=== PATIENT | female | born 1985 | race Caucasian/White ===

== ENCOUNTER 2024-07-14 07:30 | Outpatient (OUT) | payer OTHER, SELFPAY ==
[2024-07-15 04:07] LABS: Progesterone 12.9 ng/mL (.)
[2024-07-17 14:08] LABS: Anti-Mullerian Hormone (AMH) 0.475 ng/mL (.)
== END 2024-07-14 07:31 | disposition home or self-care (01) ==
LOC: LAB 07:34
PROVIDERS: Family Provider Family Medicine; PCP Family Medicine; Visit Provider Obstetrics & Gynecology
DX: N97.0 Female infertility associated with anovulation (principal)
CPT/HCPCS: 36415; 82397; 84144

== ENCOUNTER 2024-08-11 07:55 | Outpatient (OUT) | payer OTHER, SELFPAY ==
[2024-08-12 08:08] LABS: Progesterone 8.3 ng/mL (.)
== END 2024-08-11 07:56 | disposition home or self-care (01) ==
PROVIDERS: Family Provider Family Medicine; PCP Family Medicine; Visit Provider Obstetrics & Gynecology
DX: N97.0 Female infertility associated with anovulation (principal)
CPT/HCPCS: 36415; 84144

== ENCOUNTER 2024-09-02 12:15 | Outpatient (REF) | payer OTHER, SELFPAY | END 2024-09-02 12:16 | disposition home or self-care (01) | LOC: LAB 12:15 | PROVIDERS: Visit Provider Obstetrics & Gynecology | DX: R87.619 Unspecified abnormal cytological findings in specimens from cervix uteri (principal) | CPT/HCPCS: 88305 ==

== ENCOUNTER 2024-09-06 10:16 | Outpatient (OUT) | payer OTHER, SELFPAY ==
--- OUTSIDE RECORDS SUMMARY | 2024-09-06 10:19 | XMS_ITS | CCD ---
Author Organization [facility] Care Team Providers Care Unit Aide Name Role Phone SEYMOUR, DEANNA S Admitting Unavailable SEYMOUR, DEANNA S Attending Unavailable SEYMOUR, DEANNA S Consulting Unavailable ANA RUIZ Consulting Unavailable SEYMOUR, DEANNA S Admitting Unavailable SEYMOUR, DEANNA S Attending Unavailable ANA RUIZ Consulting Unavailable KRISTEN GREWAL Referring Unavailabl e ANA RUIZ Primary Care Unavailable Ana Ruiz Primary Care Provider [phone] Ana Ruiz MD Primary Care Provider Ana Ruiz MD Primary Care Provider [phone] Ana Ruiz MD Primary Care Provider ANA RUIZ Primary Care Unavailable MARY KENDALL Referring Unavailable Ana Ruiz MD Primary Care Provider ANA RUIZ Primary Care Unavailable ALFRED MERCADO Referring Unavailable ALFRED MERCADO Attending Unavailable Ana Ruiz MD Primary Care Provider [phone] SABRINA, OANH Attending Unavailable SABRINA, OANH Referring Unavailable VERHOFF, ANA Primary Care Unavailable SABRINA, OANH Attending Unavailable SABRINA, OANH Referring Unavailable VERHOFF, ANA Primary Care Unavailable SABRINA, OANH Attending Unavailable SABRINA, OANH Referring Unavailable VERHOFF, ANA Primary Care Unavailable SELF, SELF Referring Unavailable VERHOFF, ANA Primary Care Unavailable ALFRED MERCADO Attending Unavailable ALFRED MERCADO Referring Unavailable VERHOFF, ANA Primary Care Unavailable ALFRED MERCADO Attending Unavailable SABRINA, OANH Attending Unavailable SELF, SELF Referring Unavailable VERHOFF, ANA Primary Care Unavailable Ana Ruiz MD Primary Care Provider Ana Ruiz MD Primary Care Provider MARY KENDALL Referring Unavailable ANA RUIZ Primary Care Unavailable SAM ASHLEY Attending Unavailable ARLENE SALAZAR Attending Unavailable SAM ASHLEY Attending Unavailable Allergies Allergy Classification Reported Allergen(s) Allergy Type Date of Onset Reaction(s) Facility (7 sources) cashew nut allergenic extract Drug Allergy 1 [facility] (9 sources) Cashew nut Propensity to adverse reactions 1 [facility] Healthcare Medications Current Medications Medication Drug Class(es) Dates Sig (Normalized) Sig (Original) acetaminophen 325 mg oral tablet (4 sources) Start: 08-09-2021 take 2 tablets by mouth every four hours as needed acetaminophen 325 MG tablet Take 2 tablets by mouth every 4 hours as needed for Mild Pain. 50 tablet 1 08/09/2021 Active acetaminophen 325 mg / HYDROcodone bitartrate 5 mg oral tablet (2 sources) Opioid Agonist Start: 08-09-2021 take 1 tablet by mouth once daily as needed hydroCODone-acetam inophen 5-325 MG tablet Indications: Acute postoperative pain of left hip Take 1-2 tablets by mouth every 6 hours as needed for up to 7 days. Do not take over 4000mg acetaminophen daily. 20 tablet 0 08/09/2021 Active amoxicillin 500 mg oral capsule (6 sources) Penicillin-class Antibacterial Start: 09-01-2021 End: 08-09-2023 Amoxicillin 500 MG capsule Take 4 capsules 1 hour before procedure 8 capsule 1 08/09/2022 08/09/2023 Active apixaban 2.5 mg oral tablet (3 sources) Factor Xa Inhibitor Start: 08-09-2021 End: 09-13-2021 take 1 tablet by mouth every twelve hours apixaban 2.5 MG tablet Take 1 tablet by mouth every 12 hours. This medication is for blood clot prevention 70 tablet 0 08/09/2021 Active aspirin 325 mg delayed release oral tablet (20 sources) Platelet Aggregation Inhibitor, Nonsteroidal Anti-inflammatory Drug Start: 08-21-2016 take 1 tablet by mouth once daily aspirin 325 MG EC tablet Indications: Hx pulmonary embolism Take 1 tablet by mouth daily 30 tablet 3 08/21/2016 Active aspirin 81 MG EC tablet 1 (one) time each day at the same time. Active take 1 tablet by mouth once petr y aspirin 81 MG tablet Take 1 tablet by mouth daily Active calcium carbonate 500 mg sarina wable tablet (14 sources) calcium carbonat e (TUMS) 500 MG chewable tablet Take 1 tablet by mouth as needed Active take 1 tablet by mouth once petr y calcium carbonate (OSCAL) 500 MG TABS tablet Take 500 mg by mouth daily Active calcium carbonat e 1250 (500 Ca) MG Chew Tab Chew 1 tablet 2 times daily. 0 Active celecoxib 200 mg oral capsule (3 sources) Nonsteroidal Anti-inflammatory Drug Start: 08-09-2021 End: 09-20-2021 take 1 capsule by mouth twice daily celecoxib 200 MG capsule Take 1 capsule by mouth 2 times daily. 84 capsule 0 08/09/2021 Active cholecalciferol 0.05 mg oral capsule (7 sources) Vitamin D Cholecalciferol (VITAMIN D) 50 MCG (2000 UT) CAPS capsule Take by mouth daily Active cholecalciferol 50 MCG (2000 UT) capsule Take by mouth 2 times daily. 0 Active IXX-YQA-Wepmphda M57-Miwteuk E (COQ-10 & FISH OIL PO) (1 source) OMN-COM-Akxfzfvl B26-Nwqlhvi E (COQ-10 & FISH OIL PO) CoQ-10 & Fish Oil Active docusate sodium 100 mg oral capsule (11 sources) take 1 capsule by mouth twice daily docusate sodium (COLACE) 100 MG capsule Take 100 mg by mouth 2 times daily Active ergocalciferol 1.25 mg oral capsule (4 sources) Provitamin D2 Compound take 1 capsule by mouth every week ergocalciferol 1.25 MG (14188 UT) capsule Take 1 capsule by mouth once a week. 0 Active letrozole 2.5 mg oral tablet (1 source) Aromatase Inhibitor Start: 025 End: 025 take 3 tablets by mouth once daily letrozole (FEMARA) 2.5 MG tablet Take 3 tablets by mouth daily 08/18/2024 08/23/2024 Active meloxicam 7.5 mg oral tablet (8 sources) Nonsteroidal Anti-inflammatory Drug Start: 021 meloxicam (MOBIC) 7.5 MG tablet Start: 12-03-2018 meloxicam (MOB IC) 15 MG tablet 12/03/2018 Active 24 hr metFORMIN hydrochloride 500 mg extended release oral tablet (5 sources) Biguanide Start: 06-19-2024 End: 07-19-2024 take 1 tablet by mouth every twenty-four hours at mealtime metFORMIN XR (Glucophage-XR) 500 MG 24 hr tablet Indications: Anovulation Take 1 tablet (500 mg) by mouth in the evening. Take with meals Do not crush, chew, or split. 30 tablet 11 06/19/2024 Active Misc Natural Products (GLUCOSAMINE CHOND MSM FORMULA PO) (1 source) Misc Natural Products (GLUCOSAMINE CHOND MSM FORMULA PO) Take by mouth Active Multiple Vitamins-Minerals (MULTIVITAMIN ADULTS PO) (1 source) Multiple Vitamins-Minerals (MULTIVITAMIN ADULTS PO) Take by mouth Active naproxen sodium 275 mg oral tablet (3 sources) Nonsteroidal Anti-inflammatory Drug Start: 02-10-2022 take 1 tablet by mouth three times daily at mealtime as needed naproxen sodium (ANAPROX) 275 MG tablet Take 1 tablet by mouth 3 times daily (with meals) As needed for heavy menstrual bleeding 60 tablet 3 02/10/2022 Active omeprazole 20 mg delayed release oral capsule (4 sources) Proton Pump Inhibitor Start: 08-09-2021 take 1 capsule by mouth once daily omeprazole [address] capsule Take 1 capsule by mouth daily. 30 capsule 0 08/09/2021 Active ondansetron 4 mg oral tablet (4 sources) Serotonin-3 Receptor Antagonist Start: 08-09-2021 take 1 tablet by mouth every eight hours as needed ondansetron 4 MG tablet Take 1 tablet by mouth every 8 hours as needed for Nausea. 6 tablet 0 08/09/2021 Active Vit-Fe Fumarate-FA ( PLUS/IRON) 27-1 MG TABS tablet (1 source) Start: 12-04-2018 take 1 tablet by mouth once daily Vit-Fe Fumarate-FA ( PLUS/IRON) 27-1 MG TABS tablet Indications: Well woman exam with routine gynecological exam Take 1 tablet by mouth daily 90 tablet 3 12/04/2018 Active Vit-Fe Fumarate-FA ( VITAMIN) 27-1 MG TABS tablet (3 sources) Start: 09-12-2021 take 1 tablet by mouth once daily Vit-Fe Fumarate-FA ( VITAMIN) 27-1 MG TABS tablet Indications: Well woman exam with routine gynecological exam TAKE ONE TABLET BY MOUTH DAILY 90 tablet 3 09/12/2021 Active Vit-Fe Fumarate-FA (PrePLUS) 27-1 MG tablet (4 sources) Start: 03-22-2021 Vit-Fe Fumarate-FA (PrePLUS) 27-1 MG tablet Take by mouth daily. 0 03/22/2021 Active Vit-Fe Fumarate-FA (PREPLUS) 27-1 MG TABS (3 sources) Start: 11-18-2020 take 1 tablet by mouth once daily Vit-Fe Fumarate-FA (PREPLUS) 27-1 MG TABS Indications: Well woman exam with routine gynecological exam TAKE ONE TABLET BY MOUTH DAILY 90 tablet 2 11/18/2020 Active salmon calcitonin 200 unt/actuat nasal spray (7 sources) Calcitonin Start: 11-04-2018 calcitonin (MIACALCIN) 200 UNIT/ACT nasal spray 11/04/2018 Active traMADol hydrochloride 50 mg oral tablet (2 sources) Opioid Agonist Start: 08-18-2021 take 1-2 tablets by mouth every six hours as needed for pain traMADol 50 MG tablet Indications: Acute postoperative pain of left hip 1-2 tabs po q 6 hr PRN pain 20 tablet 0 08/18/2021 Active VITAMIN K PO (3 sources) VITAMIN K PO Bk e by mouth 2 times daily Active VITAMIN K PO Bk e by mouth 2 times daily 0 Active Completed/Discontinued Medications Medication Drug Class(es) Dates Sig (Normalized) Sig (Original) chondroitin sulfates 400 mg / glucosamine sulfate 500 mg oral tablet (6 sources) End: 06-19-2024 take 1 tablet by mouth in the morning, then take 1 tablet by mouth in the evening, then take 1 tablet by mouth at bedtime glucosamine-chondro itin 500-400 MG tablet Take 1 tablet by mouth in the morning and 1 tablet in the evening and 1 tablet before bedtime. 06/19/2024 Discontinued (Therapy completed) efinaconazole 100 mg/ml topical solution (17 sources) Azole Antifungal Start: 10-28-2016 End: 06-19-2024 Efinaconazole (Jublia) 10 % solution Indications: Onychomycosis 1 APPLICATION TO AFFECTED AREA ONCE A DAY EXTERNALLY 30 DAYS for 30 8 mL 3 04/10/2023 06/19/2024 Discontinued (Therapy completed) iohexol (OMNIPAQUE 240) injection 10 mL (1 source) Start: 05-23-2021 End: 05-23-2021 iohexol (OMNIPAQUE 240) injection 10 mL vitamin k 0.1 mg oral tablet (6 sources) End: 06-19-2024 phytonadione (Vitamin K) 100 MCG tablet Take by mouth. 06/19/2024 Discontinued (Therapy completed) zinc gluconate 50 mg oral tablet (6 sources) End: 06-19-2024 take 1 tablet by mouth in the morning zinc gluconate 50 MG tablet Take 50 mg by mouth in the morning. 06/19/2024 Discontinued (Therapy completed) Problems Active Problems Problem Classification Problem Date Documented Date Episodic/Chronic Anxiety disorders (7 sources) Anxiety; Translations: [Anxiety disorder, unspecified] Onset: 01-05-2015 07-10-2016 Chronic Female infertility (5 sources) Anovulation; Translations: [Female infertility associated with anovulation] Chronic Immunizations and screening for infectious disease (1 source) Patient encounter status; Translations: [Encounter for screening for human papillomavirus (HPV)] Episodic Osteoarthritis (7 sources) Unilateral primary osteoarthritis, left hip; Translations: [Osteoarthritis of left hip joint] Onset: 08-29-2018 05-17-2020 Chronic Other and unspecified benign neoplasm (2 sources) Melanocytic nevus of trunk; Translations: [Melanocytic nevi of trunk] 09-06-2023 Episodic Other and unspecified benign neoplasm (2 sources) Dermatofibroma of right upper limb; Translations: [Other benign neoplasm of skin of right upper limb, including shoulder] 09-06-2023 Episodic Other connective tissue disease (2 sources) History of total replacement of left hip joint; Translations: [Presence of left artificial hip joint] Chronic Other connective tissue disease (2 sources) Presence of left artificial hip joint; Translations: [Presence of left artificial hip joint] Onset: 08-09-2022 Chronic Other female genital disorders (1 source) Abnormal uterine bleeding; Translations: [Other specified abnormal uterine and vaginal bleeding] Chronic Other female genital disorders (1 source) Other specified abnormal uterine and vaginal bleeding; Translations: [Other specified abnormal uterine and vaginal bleeding] Onset: 02-10-2022 Chronic Other non-traumatic joint disorders (4 sources) Pain in left hip; Translations: [PAIN IN LEFT HIP] Onset: 08-27-2018 Episodic Other and delivery including normal (14 sources) Delivery normal; Translations: [ state] Resolved: 01-19-2021 07-10-2016 Episodic Other screening for suspected conditions (not mental disorders or infectious disease) (1 source) Atypical glandular cells on cervical Papanicolaou smear; Translations: [Unspecified abnormal cytological findings in specimens from cervix uteri] 09-02-2024 Episodic Other skin disorders (2 sources) Seborrheic keratosis; Translations: [Other seborrheic keratosis] 09-06-2023 Episodic Residual codes; unclassified (10 sources) Device in situ; Translations: [Presence of functional implant, unspecified] Onset: 04-10-2023 04-10-2023 Chronic Residual codes; unclassified (1 source) Other specified postprocedural states; Translations: [OTH SPECIFIED POSTPROCEDURAL STATES] Onset: 08-29-2018 Past or Other Problems Problem Classification Problem Date Documented Da te Episodic/Chronic Asthma (7 sources) Mild intermittent asthma; Translations: [Mild intermittent asthma, uncomplicated] Onset: 07-10-2016 Resolved: 08-15-2016 08-15-2016 Chronic Complication of device; implant or graft (2 sources) Pain due to internal orthopedic prosthetic devices, implants and grafts, sequela; Translations: [Pain due to internal orthopedic prosthetic devices, implants and grafts, sequela] Onset: 01-12-2022 Episodic Prolonged (7 sources) Post-term - not delivered; Translations: [Post-term ] Onset: 07-10-2016 Resolved: 08-15-2016 08-15-2016 Episodic Pulmonary heart disease (7 sources) H/O: pulmonary embolus; Translations: [Personal history of pulmonary embolism] Onset: 07-10-2016 Resolved: 08-15-2016 08-15-2016 Episodic Results Test Name Value Interpretation Reference Range Facility Colposcopyon 09-02-2024 Cammie Mane LPN 09/02/2024 2:32 PM Colposcopy Date/Time: 09/02/2024 9:34 AM Performed by: Sam Ashley DO Authorized by: Sam Ashley DO Procedure location: cervix and vagina Consent: Patient questions answered: yes Risks and benefits of the procedure and its alternatives discussed: yes Consent obtained: Written Consent given by: Patient Indication: Cervical indication(s): AGC Pre-procedure: Prep solution(s): acetic acid Procedure: Colposcopy with: cervical biopsy, endometrial biopsy and endocervical curettage Cervix visibility: fully visualized Post-procedure: Patient tolerance of procedure: Patient tolerated the procedure well with no immediate complications Instructions and paperwork completed: yes Comments: Colposcopy: Patient is doing well and has no complaints. Pap results have been reviewed with the patient in great detail and patient voiced understanding. Patient presents today for a Colposcopy with ECC, and biopsies at 12 oclock and 4 oclock. Patient was placed in dorsal lithotomy position with feet in stirrups, a sterile speculum was placed into the vagina and the cervix was visualized. Cervix was cleansed with vinegar. Postprocedural instructions given. All if patients questions answered and she expressed understanding. Advised to call in interim with questions or concerns. Follow Up: Patient is to return in 6 months for Repeat Pap. [facility] HCG ( test) Ql (U)o n 09-02-2024 Preg Test, Ur Negative Negative [facility] Cytology Reporton 08-20-2024 Cytology report Cyto stain.thin prep Doc (Cvx/Vag) (NOTE) Path Number: [id number] DIAGNOSIS Imaged ThinPrep Pap - Cervical (1 monolayer slide): Specimen Adequacy: Satisfactory for evaluation. - Endocervical/transform ation zone component present. Descriptive Diagnosis: Atypical glandular cells present (not otherwise specified). Comments: Specimen was screened at [facility], [address] [place] [id number] [employer] Screener: PT Electronically Signed Out Sam Lafleur M.D. kimberly/08/26/2024 Procedure/Addendum HPV Procedure Report High Risk HPV testing was ordered Date Ordered: 08/26/2024 Status: Ordered Source of Specimen: A: Imaged ThinPrep Pap - Cervical (1 monolayer slide) HPV Reflex?............... .......HPV if Abnormal Clinical History Colposcopy: 10/15 Z01.419 Routine manager enterprise content management exam without abnormal findings LMP: 08/17/24 Processing Lab: [address] [id number] Interpretation performed at [address] [id number] This Pap Test has been evaluated with the assistance of the [employer] Pap Test Imaging System. The Pap smear is a screening test primarily for squamous epithelial lesions, which is subject to both false negative and false positive results. Your patient should be reminded to consult you immediately if she experiences any suspicious signs or symptoms, regardless of her Pap smear result. GYNECOLOGIC CYTOLOGY REPORT Patient Name: LORENA DOUGLASS [facility] Rec: [id number] [facility] [employer] [facility] ANATOMIC PATHOLOGY [address] [place] [address]. [place], [place] [address] [facility] ALL PROGESTERONEon 5 PROGESTERONE 8.3 ng/mL . [facility] Comment on above: Follicular phase 0.1 - 0.9 Luteal phase 1.8 - 23.9 Ovulation phase 0.1 - 12.0 First trimester 11.0 - 44.3 Second trimester 25.4 - 83.3 Third trimester 58.7 - 214.0 Postmenopausal 0.0 - 0.1 Performed at: [facility] [id number] Business Lawyer: Kelvin Fajardo PhD, Phone: [phone] [employer] [facility] [employer] ALL PROGESTERONEon 4 PROGESTERONE 12.9 ng/mL . [facility] Comment on above: Follicular phase 0.1 - 0.9 Luteal phase 1.8 - 23.9 Ovulation phase 0.1 - 12.0 First trimester 11.0 - 44.3 Second trimester 25.4 - 83.3 Third trimester 58.7 - 214.0 Postmenopausal 0.0 - 0.1 Performed at: [facility] [id number] Business Lawyer: Kelvin Fajardo PhD, Phone: [phone] [facility] [employer] TSH with Reflexon 02-10-2022 TSH Qn 0.75 m[IU]/L [facility] NON OB TRANSVAGINALon NON OB TRANSVAGINAL Cris nolasco 02/10/2022 11:20 AM UTERUS:anteverted, inhomogeneous echo pattern; fibroid visualized mid / lateral, ? pedunculated Fibroid elton- 0.7cm x 1.3cm x 0.6cm ? ENDO:1.5cm in thickness ? RT. OVARY:seen, cyst elton- 2.7cm x 1.9cm x 1.8cm ? LT. OVARY:seen, wnl Interpreted by: Naman Milan MD Signed by: Naman Milan MD 02/10/22 Final result Normal [facility] XR HYSTEROSALPINGOGRAPHY S&I Ordered By: Mary Kendall on 05-23-2021 Normal exam [employer] Phone: EXAMINATION: FLUOROSCOPIC HYSTEROSALPINGOGRAM 05/23/2021 3:37 pm TECHNIQUE: Informed consent was obtained and universal protocol was observed. Fluoroscopic hysterosalpingogram was performed after cannulization of the cervix and administration of contrast into the uterine cavity. FLUOROSCOPY DOSE AND TYPE OR TIME AND EXPOSURES: 0.3 minutes fluoroscopy utilized. 2 cine loops obtained COMPARISON: none HISTORY: ORDERING SYSTEM PROVIDED HISTORY: Infertility, female TECHNOLOGIST PROVIDED HISTORY: infertility Is the patient ?->No FINDINGS: There is normal opacification of the fallopian tubes with free spill of contrast into the peritoneal cavity. There is normal filling of the endometrial cavity without evidence of endometrial filling defect. [employer] Phone: Chi, pn Incoming Radiant Results From [facility] - 05/23/2021 4:03 PM EDT EXAMINATION: FLUOROSCOPIC HYSTEROSALPINGOGRAM 05/23/2021 3:37 pm TECHNIQUE: Informed consent was obtained and universal protocol was observed. Fluoroscopic hysterosalpingogram was performed after cannulization of the cervix and administration of contrast into the uterine cavity. FLUOROSCOPY DOSE AND TYPE OR TIME AND EXPOSURES: 0.3 minutes fluoroscopy utilized. 2 cine loops obtained COMPARISON: none HISTORY: ORDERING SYSTEM PROVIDED HISTORY: Infertility, female TECHNOLOGIST PROVIDED HISTORY: infertility Is the patient ?->No FINDINGS: There is normal opacification of the fallopian tubes with free spill of contrast into the peritoneal cavity. There is normal filling of the endometrial cavity without evidence of endometrial filling defect. IMPRESSION: Normal exam [employer] Phone: [employer] Phone: Trista 03-22-2021 [facility] Telephone (ORQ) ALEXISLORENA ([id number]) 1985 F Date Time Provider Department 03/22/21 JASE WAGGONER ORQ During your visit today, we recorded the following information about you: Cammie Guzman 03/22/2021 9:17 AM Signed Patient calling regarding appt 03/25. Patient is coming in for 2nd opinion for her hip and would like to know if she has to have surgery does Dr Waggoner do anterior incision? Patient requesting call at [phone] Please advise. Jase Waggoner II, MD 03/28/2021 11:49 AM Signed called and left message to call me at [phone] Marina Richards MA Allergies As of Date: 03/22/2021 (Not on File) Date Reviewed: Never Reviewed Reason for Visit: Patient Question [[id number]] Problem List As Of Date: 03/22/2021 (None) Encounter Status:Closed by JASE WAGGONER II on 03/28/21 Normal [facility] ProgesteroneOrdered By: Zohra Kendall on 02-14-2021 Progesterone 15.63 ng/mL [employer] Work Phone: Comment on above: FEMALE (healthy): Follicular phase 0.06-0.89 Ovulation phase 0.12-12.00 Luteal phase 1.83-23.90 Postmenopausal <0.13 [employer] Phone: Hepatic Function Panelon Albumin [Mass/Vol] 4.9 g/dL 3.5 - 5.2 g/dL [facility] [place] Albumin/Globulin [Mass ratio] NOT REPORTED [place], [place] ALP [Catalytic activity/Vol] 41 U/L 35 - 104 U/L [place] ALT [Catalytic activity/Vol] 15 U/L 5 - 33 U/L [place] AST [Catalytic activity/Vol] 15 U/L <32 [place] Bilirubin Ql (U) 0.34 mg/dL 0.3 - 1.2 mg/dL [place] Bilirubin, Indirect CANNOT BE CALCULATED 0 - 1 mg/dL [place] Bilirubin.direct [Mass/Vol] mg/dL <0.31 mg/dL [place] Globulin (S) [Mass/Vol] NOT REPORTED 1.5 - 3.8 g/dL [place] Interpretation and review of laboratory results Abnormal [place] Protein [Mass/Vol] 8.4 g/dL High 6.4 - 8.3 g/dL [place] Liver Profileon 06-12-2019 Albumin [Mass/Vol] 4.9 g/dL Normal 3.5-5.2 [facility] Comment on above: Performed By: #### W BC, LIVP, SED #### [facility] [address] [place] [address] Business Lawyer: Sridhar Ye MD Alkaline Phos 41 U/L Normal 35-104 [facility] Comment on above: Performed By: #### W BC LIVP, SED #### [facility] [address] [place] [address] Business Lawyer: Sridhar Ye MD ALT [Catalytic activity/Vol] 15 U/L Normal 5-33 [facility] Comment on above: Performed By: #### W BC, LIVP, SED #### [facility] [address] [place] [address] Business Lawyer: Sridhar Ye MD AST [Catalytic activity/Vol] 15 U/L Normal <32 [facility] Comment on above: Performed By: #### W BC, LIVP, SED #### [facility] [address] [place] [address] Business Lawyer: Sridhar Ye MD Bilirubin Ql (U) 0.34 mg/dL Normal 0.30-1.20 [facility] Comment on above: Performed By: #### W BC, LIVP, SED #### [facility] [address] [place] [address] Business Lawyer: Sridhar Ye MD Bilirubin, Indirect CANNOT BE CALCULATED Normal 0.00-1 .00 [facility] Comment on above: Performed By: #### W BC, LIVP, SED #### [facility] [address] [place] [address] Business Lawyer: Sridhar Ye MD Bilirubin.direct [Mass/Vol] mg/dL Normal <0.31 [facility] Comment on above: Performed By: #### W BC, LIVP, SED #### [facility] [address] [place] [address] Business Lawyer: Sridhar Ye MD Protein [Mass/Vol] 8.4 g/dL High 6.4-8.3 [facility] Comment on above: Performed By: #### W BC, LIVP, SED #### [facility] [address] [place] [address] Business Lawyer: Sridhar Ye MD Albumin/Globulin [Mass ratio] NOT REPORTED Normal 1.0-2.5 [facility] Comment on above: Performed By: #### W BC, LIVP, SED #### [facility] [address] [place] [address] Business Lawyer: Sridhar Ye MD Globulin (S) [Mass/Vol] NOT REPORTED Normal 1.5-3.8 [facility] Comment on above: Performed By: #### W BC, LIVP, SED #### [facility] [address] [place], [place] [id number] Business Lawyer: Sridhar Ye MD Sedimentation Rateon 019 Sedimentation Rate 15 mm Normal 0-30 [facility] Comment on above: Performed By: #### W BC, LIVP, SED #### [facility] [address] [place] [address] Business Lawyer: Sridhar Ye MD Sed Rate 15 mm 0 - 30 mm [place], [place] WBCon 06-12-2019 WBC (Bld) [#/Vol] 11.0 10*3/uL [place] WBC Counton 06-12-2019 WBC (Bld) [#/Vol] 11.0 10*3/uL Normal 3.5-11.0 [facility] Comment on above: Performed By: #### W KHAI, LIVP, SED #### [facility] [address] [place] [address] Business Lawyer: Sridhar Ye MD CONSULTATIONon 08-27-2018 CONSULTATION CONSULTATION PAIN MANAGEMENT Consultation Date: 08-27-18 HISTORY OF PRESENT ILLNESS: Today in the office I saw Lorena Douglass. This is a 32 year-old female who is referred to us by Dr. Ruiz, in [place]. The patient has left hip pain. The patient approximately five years ago had a slipped capital femoral epiphyses for which she had stabilization with a screw. At present, there is moderate to severe arthritic changes for her age on her left hip, as would be anticipated secondary to the architectural variance. The patient describes currently the pain as a 0/10, a pinching sensation. ADL: Activities such as twisting, housework, standing and walking too long aggravates the pain as does running. The patient is a runner, she enjoys running. She runs approximately a mile. MEDICATIONS: She currently takes ibuprofen, recently was started on meloxicam, however, hasn't started it yet. The surgeon was Dr. Cazares in the [facility]. The patient is a mother of one, she noted more of the discomfort and pain after her child's . PAST MEDICAL HISTORY / PAST SURGICAL HISTORY and REVIEW OF SYSTEMS are noted on the chart along with the MEDICATIONS, ALLERGIES, and radiological images. X-rays of the hips were reviewed with the patient. PHYSICAL EXAM: GENERAL:This is a pleasant, cooperative female who does not appear to be in any acute distress. VITALS:Stable at 122/77 with a heart rate of 68. HEAD:Atraumatic, normocephalic. NECK:Supple without any overt lesion. HEART:Regular rate, normal rhythm. LUNGS:Normal expansion, no audible wheezing. ABDOMEN:Soft, nondistended. The patient at 5'8 is 77 kg. BACK:Slight tenderness is noted along the posterior elements on the right hand side compared to the left hand side. Upon extension, compression at the level of L5-S1. EXTREMITIES:No pedal edema is noted. MUSCULOSKELETAL:Intact in the lower extremities. NEUROLOGICALLY:The patient is grossly intact. PSYCHIATRICALLY:Affect is appropriate. IMPRESSION: 1. 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 2. Left hip pain. PLAN: 1. Education was done with regards to the various possibilities. We have instructed the patient to increase her calcium with vitamin D intake to approximately 1,500 mg daily. 2. In addition to this, we will prescribe Miacalcin nasal usage for six months. 3. In addition, the possibility of adding diclofenac can be there. 4. We would like to order x-rays of the patient's hip and lumbar spine, however, we will hold at this time for economic reasons. 5. The possibility of using an intraarticular lubricants and/or injections have been explained to the patient along with remote possibility of stem cells should she wish to explore. cc:Dr. Ruiz [facility] Signed and Approved by: DR DEANNA SEYMOUR 09/05/2018 11:48:00 Normal [facility] Vital Signs Date Time Vital Sign Value Performing Clinician Facility 09-02-2024 08:46-0500 Body mass index (BMI) [Ratio] 26.47 kg/m2 [employer] Work Phone: [facility] 09-02-2024 08:46-0500 Body weight 76.66 kg [employer] Phone: [facility] 09-02-2024 08:46-0500 Diastolic blood pressure 76 mm[Hg] [employer] Phone: [facility] 09-02-2024 08:46-0500 Systolic blood pressure 118 mm[Hg] Sam Dion DO Work Phone: [facility] 06-19-2024 09:32-0500 Body mass index (BMI) [Ratio] 26.63 kg/m2 Sam Idon DO Work Phone: [facility] 06-19-2024 09:32-0500 Body weight 77.11 kg Sam Dion DO Work Phone: [facility] 06-19-2024 09:32-0500 Diastolic blood pressure 72 mm[Hg] Sam Dion DO Work Phone: [facility] 06-19-2024 09:32-0500 Systolic blood pressure 110 mm[Hg] Sam Dion DO Work Phone: [facility] 08-09-2022 15:27-0500 Body height 170.2 cm Oanh Swartzey STAFF COUNSELOR-MICRO COMPUTER SPECIALIST Work Phone: [facility] 08-09-2022 15:27-0500 Body mass index (BMI) [Ratio] 27.72 kg/m2 Oanh Sabrina STAFF COUNSELOR-MICRO COMPUTER SPECIALIST Work Phone: [facility] 08-09-2022 15:27-0500 Body temperature 97.81 [degF] Oanh Sabrina STAFF COUNSELOR-MICRO COMPUTER SPECIALIST Work Phone: [facility] 08-09-2022 15:27-0500 Body weight 80.29 kg Oanh Sabrina STAFF COUNSELOR-MICRO COMPUTER SPECIALIST Work Phone: [facility] 09-01-2021 15:04-0500 Body height 170.2 cm Oanh Sabrina STAFF COUNSELOR-MICRO COMPUTER SPECIALIST Work Phone: [facility] 09-01-2021 15:04-0500 Body mass index (BMI) [Ratio] 26.78 kg/m2 Oanh Sabrina STAFF COUNSELOR-MICRO COMPUTER SPECIALIST Work Phone: [facility] 09-01-2021 15:04-0500 Body temperature 98.4 [degF] Oanh Bennett STAFF COUNSELOR-MICRO COMPUTER SPECIALIST Work Phone: [facility] 09-01-2021 15:04-0500 Body weight 77.56 kg Oanh Bennett STAFF COUNSELOR-MICRO COMPUTER SPECIALIST Work Phone: [facility] Encounters Encounter Date Encounter Type Care Provider Facility Start: 09-02-2024 End: 09-02-2024 Patient encounter procedure Sam Dion DO Work Phone: [facility] Comment on above: Atypical glandular c ells of undetermined significance (KAYLEN) on cervical Pap smear Start: 09-02-2024 End: 09-02-2024 ambulatory SAM ASHLEY Not Available Start: 08-20-2024 End: 08-20-2024 ambulatory [facility] Start: 08-20-2024 Encounter for gynecological examination (general) (routine) without abnormal findings [facility] Start: 08-20-2024 End: 08-20-2024 Patient encounter procedure Ana Ruiz MD Work Phone: [facility] Start: 08-20-2024 End: 08-20-2024 Subsequent hospital visit by physician Ana Ruiz MD Work Phone: [facility] Laboratory Comment on above: Well woman exam with routine gynecological exam Start: 08-11-2024 End: 08-12-2024 Clinisync Result Encounter Sam Dion DO Work Phone: [facility] Unsolicited Start: 08-11-2024 End: 08-12-2024 Clinisync Result Encounter Sam Dion DO Work Phone: [facility] Unsolicited Start: 07-14-2024 End: 07-15-2024 Clinisync Result Encounter Sam Dion DO Work Phone: [facility] Unsolicited Start: 07-14-2024 End: 07-15-2024 Clinisync Result Encounter Sam Dion DO Work Phone: [facility] Unsolicited Start: 06-19-2024 End: 06-19-2024 Bamboo flowsheet Sam Dion DO Work Phone: [facility] Start: 06-19-2024 End: 06-19-2024 Bamboo flowsheet Sam Dion DO Work Phone: [facility] Start: 06-19-2024 End: 06-19-2024 ambulatory SAM DION Not Available Start: 06-19-2024 End: 06-19-2024 Office outpatient new 20 minutes Sam Dion DO Work Phone: [facility] Comment on above: Anovulation Start: 09-06-2023 End: 09-06-2023 ambulatory ARLENE A FELTER Not Available Start: 09-06-2023 End: 09-06-2023 Office outpatient new 30 minutes Arlene A Felter STAFF COUNSELOR-MICRO COMPUTER SPECIALIST Work Phone: [facility] Comment on above: Melanocytic nevus of trunk (Primary Dx); Seborrheic keratosis; Dermatofibroma of right upper extremity Start: 09-06-2023 Bamboo flowsheet Arlene A Fel ter STAFF COUNSELOR-MICRO COMPUTER SPECIALIST Work Phone: [facility] Start: 09-06-2023 Bamboo flowsheet Arlene A Fel ter STAFF COUNSELOR-MICRO COMPUTER SPECIALIST Work Phone: [facility] Start: 08-09-2022 ambulatory OANH BENNETT [facility] Start: 08-09-2022 End: 08-09-2022 Office outpatient visit 15 minutes Oanh Bennett STAFF COUNSELOR-MICRO COMPUTER SPECIALIST Work Phone: [facility] Comment on above: Hx of total hip arth roplasty, left (Primary Dx) Start: 08-09-2022 End: 08-09-2022 Subsequent hospital visit by physician Oanh Bennett APRN-MICRO COMPUTER SPECIALIST Work Phone: [facility] Start: 06-05-2022 End: 06-05-2022 Subsequent hospital visit by physician Ana Ruiz MD Work Phone: [facility] Laboratory Comment on above: Infertility, female, secondary Start: 02-10-2022 End: 02-10-2022 ambulatory ANA RUIZ [facility] Start: 02-10-2022 End: 02-10-2022 Subsequent hospital visit by physician Ana Ruiz MD Work Phone: [facility] Laboratory Comment on above: DUB (dysfunctional u terine bleeding) Start: 01-12-2022 ambulatory ANA RUIZ [facility] Start: 12-08-2021 ambulatory ALFRED [facility] Start: 09-01-2021 ambulatory OANH BENNETT [facility] Start: 09-01-2021 End: 09-01-2021 Postop follow up visit related to original px Oanh TINOCO Work Phone: [facility] Comment on above: Hx of total hip arth roplasty, left (Primary Dx) Start: 09-01-2021 End: 09-01-2021 Subsequent hospital visit by physician Oanh TINOCO Work Phone: [facility] Start: 05-23-2021 End: 05-23-2021 Patient encounter procedure [facility] MD [facility] Start: 05-23-2021 End: 05-23-2021 Subsequent hospital visit by physician Ana Ruiz MD Work Phone: [facility] Laboratory Comment on above: Well woman exam with routine gynecological exam; Screening for HPV (human papillomavirus) Start: 05-23-2021 End: 05-25-2021 Subsequent hospital visit by physician Fanta Galindo Radiologist [facility] Comment on above: Infertility, female Start: 02-14-2021 End: 02-14-2021 Subsequent hospital visit by physician Ana Ruiz MD Work Phone: [facility] Laboratory Comment on above: Anovulation Start: 06-12-2019 End: 06-13-2019 Patient encounter procedure KRISTEN GREWAL [facility] Start: 06-12-2019 End: 06-12-2019 Subsequent hospital visit by physician Ana Ruiz [facility] Laboratory Start: 11-25-2018 Patient encounter procedure DEANNA SEYMOUR Facility:[facility]1 Start: 08-27-2018 End: 08-28-2018 Patient encounter procedure DEANNA SEYMOUR Facility:[facility]1 Procedures Date Procedure Procedure Detail Performing Clinician Start: 09-02-2024 Urine test visual color cmprsn meths Sam Dion DO Work Phone: Start: 09-02-2024 Colposcopy cervix bx cervix & endocrv curretage Sam Dion DO Work Phone: Start: 08-11-2024 ALL PROGESTERONE Sam Dion DO Work Phone: Start: 07-14-2024 ALL PROGESTERONE Sam Dion DO Work Phone: Start: 08-16-2023 Microscopic observation [Identifier] in Cervix by Cyto stain Ana Ruiz MD Work Phone: Start: 05-30-2022 Microscopic observation [Identifier] in Cervix by Cyto stain Ana Ruiz MD Work Phone: Start: 02-10-2022 Assay of thyroid stimulating hormone tsh Naman Milan MD Work Phone: Start: 05-23-2021 Hysterosalpingography rs&i Mary Ramirez ol STAFF COUNSELOR - CNM Work Phone: Start: 05-23-2021 Microscopic observation [Identifier] in Cervix by Cyto stain Ana Ruiz MD Work Phone: Start: 02-14-2021 Assay of progesterone Mary Kendall AP RN - CNM Work Phone: Start: 06-12-2019 Blood count leukocyte wbc automated KRISTEN GREWAL Start: 06-12-2019 Hepatic function panel KRISTEN MOREL H Start: 06-12-2019 Sedimentation rate rbc automated TYRONE DAVIDA GREWAL Start: 06-12-2019 Blood count leukocyte wbc automated Kristen Grewal Work Phone: Start: 06-12-2019 Hepatic function panel Kristen peralta Work Phone: Start: 06-12-2019 Sedimentation rate rbc automated Tyrone Grewal Work Phone: Start: 12-11-2017 Microscopic observation [Identifier] in Cervix by Cyto stain Ana Ruiz MD Work Phone: Plan of Treatment Date Care Activity Detail Author Start: 08-16-2028 Screening for malign ant neoplasm of cervix [facility] Start: 08-16-2026 Screening for malign ant neoplasm of cervix Pap smear [facility] Start: 06-12-2026 DTaP/Tdap/Td vaccine (2 - Td or Tdap) DTaP/Tdap/Td vaccine (2 - Td or Tdap) [facility] Start: 06-12-2026 DTaP/Tdap/Td vaccine (2 - Td) DTaP/Tdap/Td vaccine (2 - Td) [place] Start: 06-12-2026 Tetanus vaccination [facility] Start: 05-23-2026 Screening for malign ant neoplasm of cervix [facility] Start: 08-24-2025 End: 08-24-2025 Patient encounter procedure 08/24/2025 3:40 PM EST Office Visit [facility] [address] [place] [address] Mary Kendall, STAFF COUNSELOR - [address] [place], [place] [id number] yearly [facility] Comment on above: yearly Start: 05-30-2025 Screening for malign ant neoplasm of cervix Pap smear [facility] Start: 10-20-2024 End: 10-20-2024 Patient encounter procedure 10/20/2024 8:40 AM EDT Office Visit [facility] [address] [place] [id number] Sam Ashley DO [address] [place] [address] [facility] Start: 09-02-2024 End: 09-02-2025 Colposcopy Colposcopy Procedures Routine Atypical glandular cells of undetermined significance (KAYLEN) on cervical Pap smear Expected: 09/02/2024 (Approximate), Expires: 09/02/2025 [facility] Work Phone: Comment on above: Expected: 09/02/2024 (Approximate), Expires: 09/02/2025 Start: 08-16-2024 Depression Screen Depression Screen [facility] Start: 06-19-2024 End: 06-19-2025 Antimullerian hormone (AMH) Antimullerian hormone (AMH) Lab Routine Anovulation Expected: 06/19/2024 (Approximate), Expires: 06/19/2025 [facility] [employer] Work Phone: Comment on above: Expected: 06/19/2024 (Approximate), Expires: 06/19/2025 Start: 06-19-2024 End: 06-19-2025 Progesterone Progesterone Lab Routine Anovulation Expected: 06/19/2024 (Approximate), Expires: 06/19/2025 [facility] [employer] Comment on above: Expected: 06/19/2024 (Approximate), Expires: 06/19/2025 Start: 05-23-2024 Screening for malign ant neoplasm of cervix Pap smear [facility] Start: 04-06-2024 COVID-19 Vaccine ( season) COVID-19 Vaccine ( season) [facility] Start: 03-06-2024 Influenza vaccination Flu vaccine (# 1) [facility] Start: 05-31-2023 End: 05-31-2023 Patient encounter procedure 05/31/2023 Office Visit Obstetrics and Gynecology Mary Kendall APRN - JANETTM [address] [place] [address] [facility] Start: 12-11-2022 Cervical cancer screen Cervical canc er screen [facility] [place] [place] Start: 12-11-2022 Screening for malign ant neoplasm of cervix Cervical cancer screen [facility] Work Phone: Start: 05-30-2022 End: 05-30-2022 Patient encounter procedure [facility] Start: 04-06-2022 Influenza vaccination Flu vaccine (# 1) [facility] Start: 03-06-2022 Influenza vaccination Flu vaccine (# 1) [facility] Start: 02-24-2022 End: 02-24-2022 Patient encounter procedure 02/24/2022 Office Visit Obstetrics and Gynecology Naman Milan MD [address] [place], [place] [id number] [facility] Start: 01-19-2022 Depression Screen Depression Screen [facility] Start: 11-27-2021 Screening for malign ant neoplasm of cervix [facility] Work Phone: Start: 11-09-2021 End: 11-09-2021 Patient encounter procedure 11/09/2021 Office Visit Orthopaedics Alfred Mercado MD [address] [place] [address] [facility] Start: 2021 Diabetes screen Diabetes screen [facility] Start: 10-15-2021 COVID-19 Vaccine (3 - Booster for Pfizer series) COVID-19 Vaccine (3 - Booster for Pfizer series) [facility] Start: 07-28-2021 End: 07-28-2021 Patient encounter procedure 07/28/2021 Office Visit Family Medicine Ana Ruiz MD [address] [place] [address] [phone] [facility] Start: 07-12-2021 COVID-19 Vaccine (3 - Booster for Pfizer series) COVID-19 Vaccine (3 - Booster for Pfizer series) [facility] Start: 05-23-2021 End: 05-23-2021 Patient encounter procedure 05/23/2021 Office Visit Obstetrics and Gynecology Mary Kendall, STAFF COUNSELOR - CNM [address] [place] [address] [phone] [facility] Start: 04-06-2021 Influenza vaccination Flu vaccine (# 1) [facility] [employer] Phone: Start: 12-11-2020 Screening for malign ant neoplasm of cervix Pap smear [facility] [employer] Phone: Start: 12-22-2019 End: 12-22-2019 Office Visit 12/22/2019 Office Visit Obstetrics and Gynecology Mary Kendall APRN - MARK [address] [place] [address] [phone] [facility] LOG OPERATIONS COORDINATOR Start: 04-06-2019 Influenza vaccination Flu vaccine (# 1) [facility] [place] Start: 11-08-2007 Screening for malign ant neoplasm of cervix CERVICAL CANCER SCREENING DISCUSSION [facility] Start: 2005 Hepatitis B vaccine (1 of 3 - 19+ 3-dose series) Hepatitis B vaccine (1 of 3 - 19+ 3-dose series) [facility] Start: 2005 Third diphtheria, tetanus and acellular pertussis (DTaP) vaccination TDAP (ADULT) [facility] Start: 2004 Hepatitis C screening Hepatitis C sc reen [facility] Start: 2004 Tetanus vaccination TETANUS [facility] Start: 2001 HIV screening HIV SCREENING DISCUSSION [facility] Start: 11-08-1999 Varicella vaccine (1 of 2 - 13+ 2-dose series) Varicella vaccine (1 of 2 - 13+ 2-dose series) [facility] Start: 1998 COVID-19 Vaccine (1) COVID-19 Vaccin e (1) [facility] [employer] Phone: Start: 11-08-1991 COVID-19 VACCINE (1) COVID-19 VACCIN E (1) [facility] Start: 11-08-1987 Varicella vaccine (1 of 2 - 2-dose childhood series) Varicella vaccine (1 of 2 - 2-dose childhood series) [facility] Start: 1986 Hepatitis C antibody , confirmatory test HEPATITIS C VIRUS SCREENING [facility] Start: 1986 Hepatitis C screening A [facility] End: 05-23-2021 Cytopathology procedure, preparation of smear, genital source PAP SMEAR Lab Routine Well woman exam with routine gynecological exam Screening for HPV (human papillomavirus) 1 Occurrences starting 05/23/2021 until 05/23/2021 [employer] Phone: Comment on above: 1 Occurrences starti ng 05/23/2021 until 05/23/2021 End: 08-20-2024 Cytopathology procedure, preparation of smear, genital source PAP SMEAR Lab Routine Well woman exam with routine gynecological exam 1 Occurrences starting 08/20/2024 until 08/20/2024 [employer] Comment on above: 1 Occurrences starti ng 08/20/2024 until 08/20/2024 End: 02-10-2022 Follicle Stimulating Hormone [employer] Phone: Comment on above: 1 Occurrences starti ng 02/10/2022 until 02/10/2022 End: 02-10-2022 Luteinizing Hormone [employer] Phone: Comment on above: 1 Occurrences starti ng 02/10/2022 until 02/10/2022 End: 06-05-2022 Progesterone [employer] Phone: Comment on above: 1 Occurrences starti ng 06/05/2022 until 06/05/2022 End: 02-10-2022 Prolactin [employer] Phone: Comment on above: 1 Occurrences starti ng 02/10/2022 until 02/10/2022 Skeletal X-ray of pelvis and hip XR HIP WITH PELVIS LEFT Imaging Routine Hx of total hip arthroplasty, left 09/01/2021 2:55 PM [facility] XR Pelvis and Hip - left Views XR HIP WITH PELVIS LEFT Imaging Routine Hx of total hip arthroplasty, left 08/09/2022 3:25 PM [facility] Immunizations Immunization Date Immunization Notes Care Provider Landon head 06-12-2016 tetanus toxoid, redu aster diphtheria toxoid, and acellular pertussis vaccine, adsorbed [place], [place] 05-11-2016 influenza, injectabl e, quadrivalent, preservative free [place], [place] Payers Date Payer Category Payer Unknown ANTHEM ANTHEM HM O PPO POS [id number] 2022-Present [address] [place] [address] [id number] 2021 Unknown [id number] 2021 Unknown [id number] .[id number] 2021 Unknown ANTHEM ANTHEM HM O PPO POS [id number] 2021-Present [address] [place] [address] [id number] 2021 Unknown [id number] .[id number] 2017 Private Health Insurance [id number] 2017 Unknown UMR UMR [id number] 2017-Present [address] [place] [address] [id number] .[id number] 1986 Unknown [id number] 2.16.840.1.463816.3.579.2 .593 1986 Unknown [id number] 2.16.840.1.204711.3.579.2 .593 1986 Unknown [id number] 2.16.840.1.346994.3.579.2 .174 1986 Unknown [id number] 2.16.840.1.644390.3.579.2 .175 1986 Unknown [id number] 2.16.840.1.371778.3.579.2 .983 1986 Unknown [id number] 2.16.840.1.037493.3.579.2 .983 1986 Unknown [id number] 2.16.840.1.727770.3.579.2 .983 1986 Unknown [id number] 2.16.840.1.682709.3.579.2 .983 1986 Unknown [id number] 2.16.840.1.759482.3.579.2 .983 1986 Unknown [id number] 2.16.840.1.264874.3.579.2 .983 1986 Unknown [id number] 2.16.840.1.736127.3.579.2 .983 1986 Unknown [id number] 2.16.840.1.600820.3.579.2 .173 1986 Unknown [id number] 2.16.840.1.323986.3.579.2 .1259 1986 Unknown [id number] 2.16.840.1.656032.3.579.2 .1259 1986 Unknown [id number] [id number] .1259 1959 Unknown [id number] Social History Date Type Detail Facility Start: 12-16-2018 End: 04-10-2023 Tobacco smoking status NVIS Never smoker [facility] Start: 12-16-2018 End: 09-06-2023 Alcohol intake No [facility] [employer] Start: 1986 Sex Assigned At Not on file [place], [place] Start: 01-19-2021 End: 04-10-2023 Tobacco use and exposure Never used [employer] Start: 01-19-2021 End: 05-30-2022 Alcohol intake Current non-drinker of alcohol (finding) [employer] Work Phone: Start: 01-19-2021 End: 09-06-2023 Alcohol intake [employer] Start: 01-30-2022 End: 02-09-2022 Exposure to SARS-CoV-2 (event) Not sure [employer] Start: 09-01-2021 End: 08-20-2024 Alcohol intake [facility]finding[facility] Start: 04-14-2021 History SDOH [facility] Start: 07-28-2021 History SDOH Financial 5 [employer] Work Phone: Start: 07-28-2021 History SDOH Food Worry 1 [employer] Work Phone: Start: 04-10-2023 End: 09-02-2024 Alcohol intake Lifetime non-drinker (finding) [facility] Start: 04-09-2023 Alcohol Comment caffeine: 1-2 cups per day [facility] How hard is it for y ou to pay for the very basics like food, housing, medical care, and heating Not hard at all [employer] (I/We) worried [facility] (my/our) food would run out before (I/we) got money to buy more. Never true [employer] Start: 08-16-2023 Alcohol Comment occ [employer] Procedure Code Equipment Code Equipment Origin al Text Equipment Identifier Dates [place] Griptio n Acet[employer]ular [employer] [id number] Start: 08-09-2021 [place] Altrx Polyethylene Acetabular [employer]ner [id number] Start: 08-09-2021 Femoral Stem Taper Actis [employer] Hip Prosthesis [employer] [id number] Start: 08-09-2021 [employer] Delta Cer amic Femoral Head [id number] Start: 08-09-2021 Clinical Notes 09-01-2021 to 09-02-2024 Cammie Mane LPN - 09/02/2024 8:30 AM Jewel Lopez LPN - 06/19/2024 8:50 AM Leatha Salazar, STAFF COUNSELOR-MICRO COMPUTER SPECIALIST - 09/06/2023 3:55 PM Donna Gallardo - 08/09/2022 3:20 PM EST Note Date & Type Note Facility 09-02-2024 History of Presen t illness Narrative Associated Order(s): Colposcopy Post-Procedure Diagnose(s): Atypical glandular cells of undetermined significance (KAYLEN) on cervical Pap smear Reason for Appointment: Patient ID: Lorena Douglass is a 38 y.o. female who presents for Colposcopy Patient presents today for a Colposcopy appointment. MEDICATIONS Current Outpatient Medications Medication Instructions aspirin 81 MG EC tablet Every 24 hours metFORMIN XR (GLUCOPHAGE-XR) 500 mg, Oral, Daily with evening meal, Do not crush, chew, or split. ALLERGIES Allergies Allergen Reactions Cashew Nut Oil Tree nuts, scratchy throat SURGICAL HISTORY Past Surgical History: Procedure Laterality Date HIP SURGERY Left 1999 REVIEW OF SYSTEMS Review of Systems: Review of Systems Constitutional: Negative. HENT: Negative. Eyes: Negative. Respiratory: Negative. Cardiovascular: Negative. Gastrointestinal: Negative. Genitourinary: Negative. Musculoskeletal: Negative. Skin: Negative. Neurological: Negative. All other systems reviewed and are negative. Hematological: Negative. Endocrine: Negative. Allergic/Immunologic: Negative. OBJECTIVE Objective: Physical Exam Constitutional: Appearance: Normal appearance. She is well-developed. Genitourinary: Vulva normal. Cardiovascular: Rate and Rhythm: Normal rate and regular rhythm. Pulmonary: Effort: Pulmonary effort is normal. Breath sounds: Normal breath sounds. Abdominal: General: Bowel sounds are normal. There is no distension. Palpations: Abdomen is soft. Tenderness: There is no abdominal tenderness. There is no guarding or rebound. Musculoskeletal: General: No swelling. Normal range of motion. Right lower leg: No edema. Left lower leg: No edema. Neurological: Mental Status: She is alert and oriented to person, place, and time. Skin: General: Skin is warm and dry. Psychiatric: Mood and Affect: Mood normal. Behavior: Behavior normal. Vitals and nursing note reviewed. Exam conducted with a medical concierge present. Vitals: Estimated body mass index is 26.47 kg/m as calculated from the following: Height as of 04/10/23: 5' 7 . Weight as of this encounter: 169 lb. BP: 118/76 No LMP recorded. ASSESSMENT & PLAN Assessment/Plan Encounter Diagnosis: ICD-10-CM 1. Atypical glandular cells of undetermined significance (KAYLEN) on cervical Pap smear R87.619 POCT , urine manually resulted Colposcopy Colposcopy Date/Time: 09/02/2024 9:34 AM Performed by: Sam Ashley DO Authorized by: Sam Ashley DO Procedure location: cervix and vagina Consent: Patient questions answered: yes Risks and benefits of the procedure and its alternatives discussed: yes Consent obtained: Written Consent given by: Patient Indication: Cervical indication(s): AGC Pre-procedure: Prep solution(s): acetic acid Procedure: Colposcopy with: cervical biopsy, endometrial biopsy and endocervical curettage Cervix visibility: fully visualized Post-procedure: Patient tolerance of procedure: Patient tolerated the procedure well with no immediate complications Instructions and paperwork completed: yes Comments: Colposcopy: Patient is doing well and has no complaints. Pap results have been reviewed with the patient in great detail and patient voiced understanding. Patient presents today for a Colposcopy with ECC, and biopsies at 12 oclock and 4 oclock. Patient was placed in dorsal lithotomy position with feet in stirrups, a sterile speculum was placed into the vagina and the cervix was visualized. Cervix was cleansed with vinegar. Postprocedural instructions given. All if patients questions answered and she expressed understanding. Advised to call in interim with questions or concerns. Follow Up: Patient is to return in 6 months for Repeat Pap. Documented by Cammie Mane LPN on behalf of: Sam Ashley DO documented in this encounter [facility] 06-19-2024 History of Presen t illness Narrative Reason for Appointment: Patient ID: Lorena Douglass is a 38 y.o. female who presents for Infertility (Pt present today for a second opinion on infertility. Pt currently sees Mary Kendall.) Patient presents today for Consult appointment. MEDICATIONS Current Outpatient Medications Medication Instructions aspirin 81 MG EC tablet Every 24 hours ALLERGIES Allergies Allergen Reactions Cashew Nut Oil Tree nuts, scratchy throat PROBLEMS Active Ambulatory Problems Diagnosis Date Noted 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 Resolved Ambulatory Problems Diagnosis Date Noted No Resolved Ambulatory Problems Past Medical History: Diagnosis Date Arthritis HISTORY PAST MEDICAL HISTORY SOCIAL HISTORY Past Medical History: Diagnosis Date Arthritis Social History Tobacco Use Smoking status: Never Smokeless tobacco: Never Substance Use Topics Alcohol use: Never Comment: caffeine: 1-2 cups per day Drug use: Never FAMILY HISTORY No family history on file. SURGICAL HISTORY Past Surgical History: Procedure Laterality Date HIP SURGERY Left 1999 REVIEW OF SYSTEMS Review of Systems: Review of Systems All other systems reviewed and are negative. OBJECTIVE Objective: Physical Exam Constitutional: Appearance: Normal appearance. She is well-developed. Cardiovascular: Rate and Rhythm: Normal rate and regular rhythm. Pulmonary: Effort: Pulmonary effort is normal. Breath sounds: Normal breath sounds. Abdominal: General: Bowel sounds are normal. There is no distension. Palpations: Abdomen is soft. Tenderness: There is no abdominal tenderness. There is no guarding or rebound. Musculoskeletal: General: No swelling. Normal range of motion. Right lower leg: No edema. Left lower leg: No edema. Neurological: Mental Status: She is alert and oriented to person, place, and time. Skin: General: Skin is warm and dry. Psychiatric: Mood and Affect: Mood normal. Behavior: Behavior normal. Vitals and nursing note reviewed. Exam conducted with a medical concierge present. Vitals: Estimated body mass index is 26.63 kg/m as calculated from the following: Height as of 04/10/23: 5' 7 . Weight as of this encounter: 170 lb. BP: 110/72 Patient's last menstrual period was 05/30/2024 (approximate). ASSESSMENT & PLAN ICD-10-CM 1. Female infertility N97.9 Patient presents today for 2nd opinion on conceiving. Patient has seen previous INSTRUCTOR TRAINER CANINE SERVICE and fertility specialist. Patient has had HSG and partner had semen analysis done and all within normal limits. Discussed fertility medication with patient and her concerns with history of pulmonary embolism. Gave patient reassurance and discussed fertility plan. Patient presents today to discuss fertility. Patient was instructed to call the office once menstrual cycle begins so femara can be called into patients pharmacy. Patient has been instructed to take Femara on days 3-7 of cycle. On day 21 of cycle patient is to have progesterone labs drawn. Patient was advised to have intercourse on days 12, 14, 16, 18, and 20 of cycle. We will do 4 cycles of Femara and if patient has not conceived by then patient will be seen in office to readdress conceiving and plan of care. Patient has voiced understanding and will call our office for any further questions/concerns. Patient to also start Metformin. Orders Placed This Encounter Procedures Antimullerian hormone (AMH) Follow Up: 4 months for follow up Femara. Documented by Helen Lopez LPN on behalf of: Sam Ashley DO documented in this encounter [facility] 09-06-2023 History of Presen t illness Narrative Skin Check Location: Patient requests a skin examination from the waist up Dermatologic history: no history of skin cancer, no history of atypical moles New patient All pertinent medical history, medications, and allergies were reviewed. General Exam: alert , oriented to person, place, and time , normal affect, well appearing Unaccompanied A complete skin exam was offered, pt declined. Areas not examined despite medical recommendation: From the waist down Scalp, Examined Head, Face Examined Neck Examined Chest Examined Back Examined Abdomen Examined Right arm Examined Left arm Examined Hands Examined Digits,nails: Examined Lymphatics: Not examined 1. Melanocytic nevus of trunk (3) Arms, Head - Anterior (Face), Trunk Scattered benign appearing, regular brown to light brown melanocytic papules and macules with similar morphology Counseled regarding these benign growths. Rarely, a nevus can develop into malignant melanoma, so any changing nevi should be promptly re-evaluated. 2. Seborrheic keratosis (3) Arms, Head - Anterior (Face), Trunk Stuck on verrucous, variably pigmented papules and plaques. Patient was counseled regarding these benign growths. Removal is normally not necessary, but they may be removed if they are symptomatic or for cosmetic reasons. 3. Dermatofibroma of right upper extremity Right Antecubital Fossa Firm brown papule that dimples with lateral pressure. Discussed that these are benign scars on the skin. If lesion is changing/symptomatic, return to office to have lesion re-evaluated Next Visit: 2 years documented in this encounter [facility] 08-09-2022 History of Presen t illness Narrative Ortho Nurse - Established Patient Intake Room#: 4 Date: 08/09/2022 3:29 PM Patient: Lorena Douglass MR#: [id number] : 1985 Age: 36 y.o. 1yr L MAX Pt stated she is doing really good and denies any pain at this time.0/10 on the pain scale. Referring Physician: Self, Self Insurance: Payor: [employer] / Plan: [employer] HMO PPO POS / Product Type: *No Product type* / Chief Complaint Patient presents with Left Hip - Follow-up Visit Vitals Temp 97.8 F (36.6 C) (Temporal) Ht 1.702 m (5' 7 ) Wt 80.3 kg (177 lb) BMI 27.72 kg/m Pain Recent Labs No results found for: CRP No results found for: SEDRATE Lab Results Component Value Date WBC 8.6 07/14/2021 HGB 14.5 07/14/2021 HCT 43.6 07/14/2021 PLATELET 251 07/14/2021 MCV 85.7 07/14/2021 History Past Medical History: Diagnosis Date PE (pulmonary thromboembolism) 2010 Past Surgical History: Procedure Laterality Date CONVERSION TO ARTHROPLASTY HIP TOTAL Left 08/09/2021 Laterality: Left; Surgeon: Alfred Mercado MD; Location: [facility] HIP SURGERY Left 2000 Family History: Her family history is not on file. Social History: Her reports that she has never smoked. She has never used smokeless tobacco. She reports current alcohol use. She reports that she does not use drugs. Outpatient Medications Prior to Visit Medication Sig Dispense Refill acetaminophen 325 MG tablet Take 2 tablets by mouth every 4 hours as needed for Mild Pain. 50 tablet 1 amoxicillin 500 MG capsule Take 4 capsules 1 hour before procedure 8 capsule 1 Aspirin Buf,FpAnry-DvKyqv-CoG, 81 MG tablet Take 81 mg by mouth daily. cholecalciferol 50 MCG (2000 UT) capsule Take by mouth 2 times daily. docusate 100 MG capsule Take 1 capsule by mouth 2 times daily. ergocalciferol 1.25 MG (31888 UT) capsule Take 1 capsule by mouth once a week. Jublia 10 % Solution topical solution APPLY EXTERNALLY TO THE AFFECTED AREA ONCE A DAY Vit-Fe Fumarate-FA (PrePLUS) 27-1 MG tablet Take by mouth daily. apixaban 2.5 MG tablet Take 1 tablet by mouth every 12 hours. This medication is for blood clot prevention 70 tablet 0 calcium carbonate 1250 (500 Ca) MG Chew Tab Chew 1 tablet 2 times daily. (Patient not taking: Reported on 12/08/2021) celecoxib 200 MG capsule Take 1 capsule by mouth 2 times daily. 84 capsule 0 hydroCODone-acetaminophen 5-325 MG tablet Take 1-2 tablets by mouth every 6 hours as needed for up to 7 days. Do not take over 4000mg acetaminophen daily. 20 tablet 0 omeprazole [address] capsule Take 1 capsule by mouth daily. (Patient not taking: Reported on 12/08/2021) 30 capsule 0 ondansetron 4 MG tablet Take 1 tablet by mouth every 8 hours as needed for Nausea. (Patient not taking: Reported on 12/08/2021) 6 tablet 0 traMADol 50 MG tablet 1-2 tabs po q 6 hr PRN pain 20 tablet 0 No facility-administered medications prior to visit. Current Outpatient Medications: acetaminophen 325 MG tablet, Take 2 tablets by mouth every 4 hours as needed for Mild Pain., Disp: 50 tablet, Rfl: 1 amoxicillin 500 MG capsule, Take 4 capsules 1 hour before procedure, Disp: 8 capsule, Rfl: 1 Aspirin Buf,VhAyae-WkBdic-LtU, 81 MG tablet, Take 81 mg by mouth daily., Disp: , Rfl: cholecalciferol 50 MCG (2000 UT) capsule, Take by mouth 2 times daily., Disp: , Rfl: docusate 100 MG capsule, Take 1 capsule by mouth 2 times daily., Disp: , Rfl: ergocalciferol 1.25 MG (76556 UT) capsule, Take 1 capsule by mouth once a week., Disp: , Rfl: Jublia 10 % Solution topical solution, APPLY EXTERNALLY TO THE AFFECTED AREA ONCE A DAY, Disp: , Rfl: Vit-Fe Fumarate-FA (PrePLUS) 27-1 MG tablet, Take by mouth daily. , Disp: , Rfl: Amoxicillin 500 MG capsule, Take 4 capsules 1 hour before procedure, Disp: 8 capsule, Rfl: 1 apixaban 2.5 MG tablet, Take 1 tablet by mouth every 12 hours. This medication is for blood clot prevention, Disp: 70 tablet, Rfl: 0 calcium carbonate 1250 (500 Ca) MG Chew Tab, Chew 1 tablet 2 times daily. (Patient not taking: Reported on 12/08/2021), Disp: , Rfl: celecoxib 200 MG capsule, Take 1 capsule by mouth 2 times daily., Disp: 84 capsule, Rfl: 0 hydroCODone-acetaminophen 5-325 MG tablet, Take 1-2 tablets by mouth every 6 hours as needed for up to 7 days. Do not take over 4000mg acetaminophen daily., Disp: 20 tablet, Rfl: 0 omeprazole [address] capsule, Take 1 capsule by mouth daily. (Patient not taking: Reported on 12/08/2021), Disp: 30 capsule, Rfl: 0 ondansetron 4 MG tablet, Take 1 tablet by mouth every 8 hours as needed for Nausea. (Patient not taking: Reported on 12/08/2021), Disp: 6 tablet, Rfl: 0 traMADol 50 MG tablet, 1-2 tabs po q 6 hr PRN pain, Disp: 20 tablet, Rfl: 0 Allergies: She is allergic to tree nuts [cashew nut oil]. HPI: Patient is here today for evaluation of their operative hip. She is status post total hip arthroplasty. She is about a year out, reports that she is doing well and is pleased with the outcome of the intervention. The hip feels better now than it did before, and she is not having any new symptoms with it. PHYSICAL EXAM: The bilateral lower extremities were evaluated. The operative lower extremity is soft, nontender with full and supple motion of the hip. No pain, no impingement. No instability. The contralateral extremity has full motion, normal stability, no tenderness. Bilateral lower extremities have normal neurovascular status. Skin otherwise intact. DIAGNOSTIC STUDIES/INTERPRETATION: Plain film radiographs reviewed. She has a total hip arthroplasty in good position and alignment. No evidence of prosthetic implant loosening or migration. IMPRESSION: Stable status post total hip arthroplasty, doing well. PLAN: I am pleased with the outcome of intervention. She has made an excellent recovery. I expect continued improvement in strength and mobility moving forward. I recommend followup in 2 years for repeat clinical and radiographic examination or sooner if any new symptoms develop. Tylenol may be used to manage any occasional aches and pains. She will call with any questions or concerns in the meantime. We have discussed her young age. She needs group home follow up of implant. She has been active. Running 2-5 miles 3-4 days per week. Feels great. Greater than 20 minutes time was spent in review of the medical records, review of previous imaging, and more than 50% of that time was spent on face to face time with patient. Oanh Bennett APRN-DANIS I have reviewed the findings of my clinical staff below and agree with their assessment. Ortho Nurse - Established Patient Intake Room#: 4 Date: 08/09/2022 3:29 PM Patient: Lorena Douglass MR#: [id number] : 1985 Age: 36 y.o. 1yr L MAX Pt stated she is doing really good and denies any pain at this time.0/10 on the pain scale. Referring Physician: Self, Self Insurance: Payor: [employer] / [facility] / Product Type: *No Product type* / Chief Complaint Patient presents with Left Hip - Follow-up Visit Vitals Temp 97.8 F (36.6 C) (Temporal) Ht 1.702 m (5' 7 ) Wt 80.3 kg (177 lb) BMI 27.72 kg/m Pain Recent Labs No results found for: CRP No results found for: SEDRATE Lab Results Component Value Date WBC 8.6 07/14/2021 HGB 14.5 07/14/2021 HCT 43.6 07/14/2021 PLATELET 251 07/14/2021 MCV 85.7 07/14/2021 History Past Medical History: Diagnosis Date PE (pulmonary thromboembolism) 2010 Past Surgical History: Procedure Laterality Date CONVERSION TO ARTHROPLASTY HIP TOTAL Left 08/09/2021 Laterality: Left; Surgeon: Alfred Mercado MD; Location: [facility] HIP SURGERY Left 2000 Family History: Her family history is not on file. Social History: Her reports that she has never smoked. She has never used smokeless tobacco. She reports current alcohol use. She reports that she does not use drugs. Outpatient Medications Prior to Visit Medication Sig Dispense Refill acetaminophen 325 MG tablet Take 2 tablets by mouth every 4 hours as needed for Mild Pain. 50 tablet 1 amoxicillin 500 MG capsule Take 4 capsules 1 hour before procedure 8 capsule 1 Aspirin Buf,IbHgow-HxHiea-UoR, 81 MG tablet Take 81 mg by mouth daily. cholecalciferol 50 MCG (1999 UT) capsule Take by mouth 2 times daily. docusate 100 MG capsule Take 1 capsule by mouth 2 times daily. ergocalciferol 1.25 MG (92630 UT) capsule Take 1 capsule by mouth once a week. Jublia 10 % Solution topical solution APPLY EXTERNALLY TO THE AFFECTED AREA ONCE A DAY Vit-Fe Fumarate-FA (PrePLUS) 27-1 MG tablet Take by mouth daily. apixaban 2.5 MG tablet Take 1 tablet by mouth every 12 hours. This medication is for blood clot prevention 70 tablet 0 calcium carbonate 1250 (500 Ca) MG Chew Tab Chew 1 tablet 2 times daily. (Patient not taking: Reported on 12/08/2021) celecoxib 200 MG capsule Take 1 capsule by mouth 2 times daily. 84 capsule 0 hydroCODone-acetaminophen 5-325 MG tablet Take 1-2 tablets by mouth every 6 hours as needed for up to 7 days. Do not take over 4000mg acetaminophen daily. 20 tablet 0 omeprazole [address] capsule Take 1 capsule by mouth daily. (Patient not taking: Reported on 12/08/2021) 30 capsule 0 ondansetron 4 MG tablet Take 1 tablet by mouth every 8 hours as needed for Nausea. (Patient not taking: Reported on 12/08/2021) 6 tablet 0 traMADol 50 MG tablet 1-2 tabs po q 6 hr PRN pain 20 tablet 0 No facility-administered medications prior to visit. Current Outpatient Medications: acetaminophen 325 MG tablet, Take 2 tablets by mouth every 4 hours as needed for Mild Pain., Disp: 50 tablet, Rfl: 1 amoxicillin 500 MG capsule, Take 4 capsules 1 hour before procedure, Disp: 8 capsule, Rfl: 1 Aspirin Buf,SjOzhq-OgMqtp-AyA, 81 MG tablet, Take 81 mg by mouth daily., Disp: , Rfl: cholecalciferol 50 MCG (2000 UT) capsule, Take by mouth 2 times daily., Disp: , Rfl: docusate 100 MG capsule, Take 1 capsule by mouth 2 times daily., Disp: , Rfl: ergocalciferol 1.25 MG (81368 UT) capsule, Take 1 capsule by mouth once a week., Disp: , Rfl: Jublia 10 % Solution topical solution, APPLY EXTERNALLY TO THE AFFECTED AREA ONCE A DAY, Disp: , Rfl: Vit-Fe Fumarate-FA (PrePLUS) 27-1 MG tablet, Take by mouth daily. , Disp: , Rfl: Amoxicillin 500 MG capsule, Take 4 capsules 1 hour before procedure, Disp: 8 capsule, Rfl: 1 apixaban 2.5 MG tablet, Take 1 tablet by mouth every 12 hours. This medication is for blood clot prevention, Disp: 70 tablet, Rfl: 0 calcium carbonate 1250 (500 Ca) MG Chew Tab, Chew 1 tablet 2 times daily. (Patient not taking: Reported on 12/08/2021), Disp: , Rfl: celecoxib 200 MG capsule, Take 1 capsule by mouth 2 times daily., Disp: 84 capsule, Rfl: 0 hydroCODone-acetaminophen 5-325 MG tablet, Take 1-2 tablets by mouth every 6 hours as needed for up to 7 days. Do not take over 4000mg acetaminophen daily., Disp: 20 tablet, Rfl: 0 omeprazole [address] capsule, Take 1 capsule by mouth daily. (Patient not taking: Reported on 12/08/2021), Disp: 30 capsule, Rfl: 0 ondansetron 4 MG tablet, Take 1 tablet by mouth every 8 hours as needed for Nausea. (Patient not taking: Reported on 12/08/2021), Disp: 6 tablet, Rfl: 0 traMADol 50 MG tablet, 1-2 tabs po q 6 hr PRN pain, Disp: 20 tablet, Rfl: 0 Allergies: She is allergic to tree nuts [cashew nut oil]. documented in this encounter [facility] 09-01-2021 History of Presen t illness Narrative HPI: Gricelda Douglass is an established patient of mine. She is here 3 weeks post direct anterior total hip arthroplasty, She reports she could not be happier with the outcomes of the operation. She reports pain rated 0 on a 10 point scale. She reports they have been compliant with their JEANETH hose and medication for DVT prophylaxis and had no problems with their wound. Physical Exam: This is an alert and oriented age appropriate Female in no acute distress. She is pleasant, cooperative. Pain is rated 0 on a 10 point scale. The bilateral lower extremities were evaluated and revealed bilateral thigh and calves that are soft and nontender. .Left lower extremity was evaluated and reveals a direct anterior incision which is well approximated with old skin glue present, there is no drainage, dehiscence, discharge, or erythema. There is full and supple motion of the hip with no pain and no impingement. The neurovascular exam is intact bilaterally and negative blank's sign bilaterally. Visit Vitals Temp 98.4 F (36.9 C) (Temporal) Ht 1.702 m (5' 7 ) Wt 77.6 kg (171 lb) BMI 26.78 kg/m Diagnostic Study/ Interpretation: Plain film radiographs were reviewed and reveal a Left cementless total hip arthroplasty in good position and alignment. No evidence of periprosthetic implant loosening or migration. Impression: Stable status post Left total hip arthroplasty 3 weeks out doing well. Plan: I am pleased with the outcomes of the operation, she is making an excellent recovery. I have instructed the patient to continue with their JEANETH hose and medication for DVT prophylaxis for the prescribed duration. Ok to advance to wbat. Talked at length about how to progress physical activity. May rtw with restrictions. A prescription for dental propphylaxis was given. The next three months were outlined. She will be seen at that time for repeat clinical and radiographic examination, call with any questions or concerns in the meantime. EARNEST Lara I have reviewed the findings of the clinical home support worker and agree with their assessment. EARNEST Lara Ortho Nurse Established Patient Intake Room#: 4 Date: 09/01/2021 3:05 PM Patient: Lorena Douglass MR#: [id number] : 1985 Age: 35 y.o. 3wk S/P L MAX Pt stated she is doing good and mild pain 1-2/10 on the pain scale. Pt was wearing her jeaneth hose and using a walkler at the time of visit. Referring Physician: Oanh Bennett APRN-CNP Insurance: Payor: [facility] / [facility] / Product Type: *No Product type* / Chief Complaint Patient presents with Left Hip - Post Op Visit Visit Vitals Temp 98.4 F (36.9 C) (Temporal) Ht 1.702 m (5' 7 ) Wt 77.6 kg (171 lb) BMI 26.78 kg/m Pain Recent Labs No results found for: CRP No results found for: SEDRATE Lab Results Component Value Date WBC 8.6 07/14/2021 HGB 14.5 07/14/2021 HCT 43.6 07/14/2021 PLATELET 251 07/14/2021 MCV 85.7 07/14/2021 History Past Medical History: Diagnosis Date PE (pulmonary thromboembolism) 2010 Past Surgical History: Procedure Laterality Date CONVERSION TO ARTHROPLASTY HIP TOTAL Left 08/09/2021 Laterality: Left; Surgeon: Alfred Mercado MD; Location: [facility] HIP SURGERY Left 2000 Family History: Her family history is not on file. Social History: Her reports that she has never smoked. She has never used smokeless tobacco. She reports current alcohol use. She reports that she does not use drugs. Outpatient Medications Prior to Visit Medication Sig Dispense Refill acetaminophen 325 MG tablet Take 2 tablets by mouth every 4 hours as needed for Mild Pain. 50 tablet 1 apixaban 2.5 MG tablet Take 1 tablet by mouth every 12 hours. This medication is for blood clot prevention 70 tablet 0 Aspirin Buf,QhMpqw-HcEqhx-MjW, 81 MG tablet Take 81 mg by mouth daily. calcium carbonate 1250 (500 Ca) MG Chew Tab Chew 1 tablet 2 times daily. celecoxib 200 MG capsule Take 1 capsule by mouth 2 times daily. 84 capsule 0 cholecalciferol 50 MCG (2000 UT) capsule Take by mouth 2 times daily. docusate 100 MG capsule Take 100 mg by mouth 2 times daily. ergocalciferol 1.25 MG (91798 UT) capsule Take 50,000 Units by mouth once a week. Jublia 10 % Solution topical solution APPLY EXTERNALLY TO THE AFFECTED AREA ONCE A DAY omeprazole [address] capsule Take 1 capsule by mouth daily. 30 capsule 0 ondansetron 4 MG tablet Take 1 tablet by mouth every 8 hours as needed for Nausea. 6 tablet 0 Vit-Fe Fumarate-FA (PrePLUS) 27-1 MG tablet Take by mouth daily. hydroCODone-acetaminophen 5-325 MG tablet Take 1-2 tablets by mouth every 6 hours as needed for up to 7 days. Do not take over 4000mg acetaminophen daily. 20 tablet 0 traMADol 50 MG tablet 1-2 tabs po q 6 hr PRN pain 20 tablet 0 No facility-administered medications prior to visit. Current Outpatient Medications: acetaminophen 325 MG tablet, Take 2 tablets by mouth every 4 hours as needed for Mild Pain., Disp: 50 tablet, Rfl: 1 apixaban 2.5 MG tablet, Take 1 tablet by mouth every 12 hours. This medication is for blood clot prevention, Disp: 70 tablet, Rfl: 0 Aspirin Buf,CkGwgs-LcJcev-AoI, 81 MG tablet, Take 81 mg by mouth daily., Disp: , Rfl: calcium carbonate 1250 (500 Ca) MG Chew Tab, Chew 1 tablet 2 times daily. , Disp: , Rfl: celecoxib 200 MG capsule, Take 1 capsule by mouth 2 times daily., Disp: 84 capsule, Rfl: 0 cholecalciferol 50 MCG (2000 UT) capsule, Take by mouth 2 times daily., Disp: , Rfl: docusate 100 MG capsule, Take 100 mg by mouth 2 times daily., Disp: , Rfl: ergocalciferol 1.25 MG (29408 UT) capsule, Take 50,000 Units by mouth once a week., Disp: , Rfl: Jublia 10 % Solution topical solution, APPLY EXTERNALLY TO THE AFFECTED AREA ONCE A DAY, Disp: , Rfl: omeprazole [address] capsule, Take 1 capsule by mouth daily., Disp: 30 capsule, Rfl: 0 ondansetron 4 MG tablet, Take 1 tablet by mouth every 8 hours as needed for Nausea., Disp: 6 tablet, Rfl: 0 Vit-Fe Fumarate-FA (PrePLUS) 27-1 MG tablet, Take by mouth daily. , Disp: , Rfl: hydroCODone-acetaminophen 5-325 MG tablet, Take 1-2 tablets by mouth every 6 hours as needed for up to 7 days. Do not take over 4000mg acetaminophen daily., Disp: 20 tablet, Rfl: 0 traMADol 50 MG tablet, 1-2 tabs po q 6 hr PRN pain, Disp: 20 tablet, Rfl: 0 Allergies: She is allergic to tree nuts [cashew nut oil]. Ortho Nurse Established Patient Intake Room#: 4 Date: 09/01/2021 3:05 PM Patient: Lorena Douglass MR#: [id number] : 1985 Age: 35 y.o. 3wk S/P L MAX Pt stated she is doing good and mild pain 1-2/10 on the pain scale. Pt was wearing her jeaneth hose and using a walkler at the time of visit. Referring Physician: Oanh Bennett APRN-CNP Insurance: Payor: [facility] / Plan: [employer] HMO PPO POS / Product Type: *No Product type* / Chief Complaint Patient presents with Left Hip - Post Op Visit Visit Vitals Temp 98.4 F (36.9 C) (Temporal) Ht 1.702 m (5' 7 ) Wt 77.6 kg (171 lb) BMI 26.78 kg/m Pain Recent Labs No results found for: CRP No results found for: SEDRATE Lab Results Component Value Date WBC 8.6 07/14/2021 HGB 14.5 07/14/2021 HCT 43.6 07/14/2021 PLATELET 251 07/14/2021 MCV 85.7 07/14/2021 History Past Medical History: Diagnosis Date PE (pulmonary thromboembolism) 2010 Past Surgical History: Procedure Laterality Date CONVERSION TO ARTHROPLASTY HIP TOTAL Left 08/09/2021 Laterality: Left; Surgeon: Alfred Mercado MD; Location: [facility] HIP SURGERY Left 2000 Family History: Her family history is not on file. Social History: Her reports that she has never smoked. She has never used smokeless tobacco. She reports current alcohol use. She reports that she does not use drugs. Outpatient Medications Prior to Visit Medication Sig Dispense Refill acetaminophen 325 MG tablet Take 2 tablets by mouth every 4 hours as needed for Mild Pain. 50 tablet 1 apixaban 2.5 MG tablet Take 1 tablet by mouth every 12 hours. This medication is for blood clot prevention 70 tablet 0 Aspirin Buf,PmGohm-QjKskj-FhP, 81 MG tablet Take 81 mg by mouth daily. calcium carbonate 1250 (500 Ca) MG Chew Tab Chew 1 tablet 2 times daily. celecoxib 200 MG capsule Take 1 capsule by mouth 2 times daily. 84 capsule 0 cholecalciferol 50 MCG (2000 UT) capsule Take by mouth 2 times daily. docusate 100 MG capsule Take 100 mg by mouth 2 times daily. ergocalciferol 1.25 MG (43575 UT) capsule Take 50,000 Units by mouth once a week. Jublia 10 % Solution topical solution APPLY EXTERNALLY TO THE AFFECTED AREA ONCE A DAY omeprazole [address] capsule Take 1 capsule by mouth daily. 30 capsule 0 ondansetron 4 MG tablet Take 1 tablet by mouth every 8 hours as needed for Nausea. 6 tablet 0 Vit-Fe Fumarate-FA (PrePLUS) 27-1 MG tablet Take by mouth daily. hydroCODone-acetaminophen 5-325 MG tablet Take 1-2 tablets by mouth every 6 hours as needed for up to 7 days. Do not take over 4000mg acetaminophen daily. 20 tablet 0 traMADol 50 MG tablet 1-2 tabs po q 6 hr PRN pain 20 tablet 0 No facility-administered medications prior to visit. Current Outpatient Medications: acetaminophen 325 MG tablet, Take 2 tablets by mouth every 4 hours as needed for Mild Pain., Disp: 50 tablet, Rfl: 1 apixaban 2.5 MG tablet, Take 1 tablet by mouth every 12 hours. This medication is for blood clot prevention, Disp: 70 tablet, Rfl: 0 Aspirin Buf,UiGizk-ZpZjgz-OrP, 81 MG tablet, Take 81 mg by mouth daily., Disp: , Rfl: calcium carbonate 1250 (500 Ca) MG Chew Tab, Chew 1 tablet 2 times daily. , Disp: , Rfl: celecoxib 200 MG capsule, Take 1 capsule by mouth 2 times daily., Disp: 84 capsule, Rfl: 0 cholecalciferol 50 MCG (2000 UT) capsule, Take by mouth 2 times daily., Disp: , Rfl: docusate 100 MG capsule, Take 100 mg by mouth 2 times daily., Disp: , Rfl: ergocalciferol 1.25 MG (62045 UT) capsule, Take 50,000 Units by mouth once a week., Disp: , Rfl: Jublia 10 % Solution topical solution, APPLY EXTERNALLY TO THE AFFECTED AREA ONCE A DAY, Disp: , Rfl: omeprazole [address] capsule, Take 1 capsule by mouth daily., Disp: 30 capsule, Rfl: 0 ondansetron 4 MG tablet, Take 1 tablet by mouth every 8 hours as needed for Nausea., Disp: 6 tablet, Rfl: 0 Vit-Fe Fumarate-FA (PrePLUS) 27-1 MG tablet, Take by mouth daily. , Disp: , Rfl: hydroCODone-acetaminophen 5-325 MG tablet, Take 1-2 tablets by mouth every 6 hours as needed for up to 7 days. Do not take over 4000mg acetaminophen daily., Disp: 20 tablet, Rfl: 0 traMADol 50 MG tablet, 1-2 tabs po q 6 hr PRN pain, Disp: 20 tablet, Rfl: 0 Allergies: She is allergic to tree nuts [cashew nut oil]. documented in this encounter [facility] Evaluation note Diagnosis Anovulation Female infertility associated with anovulation documented in this encounter [employer] Phone: evaliytuig note* Diagnosis Well woman exam with routine gynecological exam Routine gynecological examination Screening for HPV (human papillomavirus) Special screening examination for human papillomavirus (HPV) documented in this encounter [employer] Phone: evaluation note* Diagnosis Infertility, female Female infertility of unspecified origin documented in this encounter [employer] Phone: evaluation note* Diagnosis Hx of total hip arthroplasty, left- Primary documented in this encounter [employer] [facility] Diagnosis DUB (dysfunctional uterine bleeding) Other disorder of menstruation and other abnormal bleeding from female genital tract documented in this encounter [employer] Phone: evaluation note* Diagnosis Infertility, female, secondary Female infertility of unspecified origin documented in this encounter [employer] Phone: evallsujdu note* Diagnosis Hx of total hip arthroplasty, left- Primary [facility] Diagnosis Melanocytic nevus of trunk- Primary Benign neoplasm of skin of trunk, except scrotum Seborrheic keratosis Dermatofibroma of right upper extremity documented in this encounter [facility] HealthcareEvaluation note* Diagnosis Anovulation Female infertility associated with anovulation documented in this encounter [facility] Healthcare[facility]* Diagnosis Well woman exam with routine gynecological exam Routine gynecological examination documented in this encounter [facility] [employer]* Diagnosis Atypical glandular cells of undetermined significance (KAYLEN) on cervical Pap smear documented in this encounter [facility] Healthcare Summary Purpose Family History No Family History Records FoundNo Family History Records FoundNo Family History Records FoundNo Family History Records FoundNo Family History Records FoundNo Family History Records FoundNo Family History Records FoundNo Family History Records Found Advance Directives Documents on File Type Date Recorded Patient Operating Room Rn Expl anation Advance Directives and Living Will Power of [place] Latest Code Status on File Code Status Date Activated Date Inactivated Comments Full Code 07/10/2016 8:33 PM 07/12/2016 5:11 PM Full Code 07/09/2016 3:18 PM 07/10/2016 8:33 PM Documents on File Type Date Recorded Patient Operating Room Rn Expl anation ACP-Advance Directive ACP-Power of [place] Documents on File Type Date Recorded Patient Operating Room Rn Expl anation ACP-Advance Directive ACP-Power of [place] Latest Code Status on File Code Status Date Activated Date Inactivated Comments Full Code 07/10/2016 8:33 PM 07/12/2016 5:11 PM Full Code 07/09/2016 3:18 PM 07/10/2016 8:33 PM Documents on File Type Date Recorded Patient Operating Room Rn Expl anation Advance Directives/Living Will 08/09/2021 8:00 AM Living Will / POA Latest Code Status on File Code Status Date Activated Date Inactivated Comments Full Code 08/09/2021 11:50 AM Latest Code Status on File Code Status Date Activated Date Inactivated Comments Full Code 08/09/2021 11:50 AM Date Activated Date Inactivated Comments 07/10/2016 8:33 PM 07/12/2016 5:11 PM Date Activated Date Inactivated Comments 07/09/2016 3:18 PM 07/10/2016 8:33 PM Reason for Referral Status Reason Specialty Diagnoses / Procedures Re ferred By Contact Referred To Contact Closed Radiology Diagnoses Infertility, female Procedures XR HYSTEROSALPINGOGRAPHY S&I Mary Kendall, STAFF COUNSELOR - CNM [address] [place] [address] Specialty Diagnoses / Procedures Referred By Zuleyma kasper Referred To Contact Diagnoses Hx of total hip arthroplasty, left Procedures XR HIP WITH PELVIS LEFT Oanh Bennett, STAFF COUNSELOR-MICRO COMPUTER SPECIALIST [address] [place] [address] Referral ID Status Reason Start Date Expiration Date V isits Requested Visits Authorized [id number] New Request 08/19/2021 09/13/2022 1 1 Referral ID Status Reason Start Date Expiration Date V isits Requested Visits Authorized [id number] Pending Review 08/01/2022 08/26/2023 1 1 Additional Source Comments INFORMATION SOURCE (unrecogn ized section and content) DATE CREATED AUTHOR 09/24/2018 [facility] DATE CREATED AUTHOR AUTHOR'S ORGANIZ ATION 06/13/2019 [facility] DATE CREATED AUTHOR AUTHOR'S ORGANIZ ATION 09/09/2021 [facility] DATE CREATED AUTHOR AUTHOR'S ORGANIZ ATION 05/31/2022 [facility] DATE CREATED AUTHOR AUTHOR'S ORGANIZ ATION 08/09/2022 [facility] DATE CREATED AUTHOR AUTHOR'S ORGANIZ ATION 08/18/2022 [facility] DATE CREATED AUTHOR AUTHOR'S ORGANIZ ATION 08/28/2024 [facility] DATE CREATED AUTHOR AUTHOR'S ORGANIZ ATION 09/03/2024 [facility] EPIC Reason for Visit (unrecogniz ed section and content) Status Reason Specialty Diagnoses / Procedures Re ferred By Contact Referred To Contact Closed Radiology Diagnoses Infertility, female Procedures XR HYSTEROSALPINGOGRAPHY S&I Mary Kendall, STAFF COUNSELOR - CNM [address] [place] [id number] Specialty Diagnoses / Procedures Referred By Contac t Referred To Contact Diagnoses Hx of total hip arthroplasty, left Procedures XR HIP WITH PELVIS LEFT Oanh Bennett, STAFF COUNSELOR-MICRO COMPUTER SPECIALIST [address] [place] [address] Referral ID Status Reason Start Date Expiration Date V isits Requested Visits Authorized [id number] New Request 08/19/2021 09/13/2022 1 1 Reason Comments Post Op Visit Referral ID Status Reason Start Date Expiration Date V isits Requested Visits Authorized [id number] Pending Review 08/01/2022 08/26/2023 1 1 Reason Comments Follow-up Reason Comments Skin Check Reason Comments Infertility Pt present today for a second opinion on infertility. Pt currently sees Mary Kendall. Reason Comments Colposcopy Care Teams (unrecognized sec tion and content) Unit Aide Relationship Specialty Start Date End Date Ana Ruiz MD [address] [place] [address] PCP - General Family Medicine 04/14/21 Unit Aide Relationship Specialty Start Date End Date Ana Ruiz MD [address] [place] [address] PCP - General Family Medicine 04/14/21 Unit Aide Relationship Specialty Start Date End Date Ana Ruiz MD [address] [place] [address] PCP - General Family Medicine 04/22/13 Unit Aide Relationship Specialty Start Date End Date Ana Ruiz MD [address] [place] [address] PCP - General Family Medicine 04/22/13 Unit Aide Relationship Specialty Start Date End Date Ana Ruiz MD PCP - General Family Medicine 04/14/21 Unit Aide Relationship Specialty Start Date End Date Ana Ruiz MD PCP - General Family Medicine 04/14/21 Unit Aide Relationship Specialty Start Date End Date Ana Ruiz MD [address] [place] [id number] PCP - General Family Medicine 04/10/23 Unit Aide Relationship Specialty Start Date End Date Ana Ruiz MD [address] [place] [id number] PCP - General Family Medicine 04/10/23 Unit Aide Relationship Specialty Start Date End Date Ana Riuz MD [address] [place] [id number] PCP - General Family Medicine 04/10/23 Unit Aide Relationship Specialty Start Date End Date Ana Ruiz MD [address] [place] [address] PCP - General Family [facility] 04/10/23 Unit Aide Relationship Specialty Start Date End Date Ana Ruiz MD [address] [place] [address] PCP - General Family Medicine 04/10/23 Unit Aide Relationship Specialty Start Date End Date Ana Ruiz MD [address] [place] [address] PCP - [facility] 04/10/23 Unit Aide Relationship Specialty Start Date End Date Ana Ruiz MD [address] [place] [address] PCP - General Family Medicine 04/22/13 Unit Aide Relationship Specialty Start Date End Date Ana Ruiz MD [address] [place] [address] PCP - General Family Medicine 04/10/23 FOR RECORDS PERTAINING TO PATIENTS WHO ARE OR HAVE BEEN ENROLLED IN A CHEMICAL DEPENDENCY/SUBSTANCEABUSE PROGRAM, SOME INFORMATION MAY BE OMITTED. This clinical summary was aggregated from multiple sources. Caution should be exercised in using it in the provision of clinical care. This summary normalizes information from multiple sources, and as a consequence, information in this document may materially change the coding, format and clinical context of patient data. In addition, data may be omitted in some cases. CLINICAL DECISIONS SHOULD BE BASED ON THE PRIMARY CLINICAL RECORDS. [facility]. provides no warranty or guarantee of the accuracy or completeness of information in this document.
[2024-09-07 08:10] LABS: Progesterone 20.6 ng/mL (.)
== END 2024-09-06 10:17 | disposition home or self-care (01) ==
LOC: LAB 10:17
PROVIDERS: PCP Family Medicine; Visit Provider Obstetrics & Gynecology
DX: N97.0 Female infertility associated with anovulation (principal)
CPT/HCPCS: 36415; 84144

== ENCOUNTER 2024-10-03 08:02 | Outpatient (OUT) | payer OTHER, SELFPAY ==
--- OUTSIDE RECORDS SUMMARY | 2024-10-03 08:22 | XMS_ITS | CCD ---
Author Organization [facility] Care Team Providers Care Technical Services Specialist Name Role Phone SEYMOUR, DEANNA S Admitting Unavailable SEYMOUR, DEANNA S Attending Unavailable SEYMOUR, DEANNA S Consulting Unavailable ANA RUIZ Consulting Unavailable SEYMOUR, DEANNA S Admitting Unavailable SEYMOUR, DEANNA S Attending Unavailable ANA RUIZ Consulting Unavailable KRISTEN GREWAL Referring Unavailabl e ANA RUIZ Primary Care Unavailable Ana Ruiz Primary Care Provider Ana Ruiz MD Primary Care Provider Ana Ruiz MD Primary Care Provider [phone] Ana Ruiz MD Primary Care Provider ANA RUIZ Primary Care Unavailable MARY KENDALL Referring Unavailable Ana Ruiz MD Primary Care Provider ANA RUIZ Primary Care Unavailable ALFRED MERCADO Referring Unavailable ALFRED MERCADO Attending Unavailable Ana Ruiz MD Primary Care Provider [phone] SABRINA, OANH Attending Unavailable SABRINA, OANH Referring [...] cashew nut allergenic extract Drug Allergy 1 [facility] (10 sources) Cashew nut Propensity to adverse reactions 1 [facility] Healthcare Medications Current Medications Medication Drug Class(es) [...] by mouth 2 times daily. 0 Active JAZ-LPI-Ynymdvzn K29-Bywbbdj E (COQ-10 & FISH OIL PO) (1 source) FDV-MFW-Kfuxkome V81-Dwaekjf E (COQ-10 & FISH OIL PO) CoQ-10 & Fish Oil Active docusate sodium 100 mg oral capsule (11 sources) take 1 capsule by mouth twice daily docusate sodium (COLACE) 100 MG capsule Take 100 mg by mouth 2 times daily Active ergocalciferol 1.25 mg oral capsule (4 sources) Provitamin D2 Compound take 1 capsule by mouth every week ergocalciferol 1.25 MG (72997 UT) capsule Take 1 capsule by mouth [...] seborrheic keratosis] 09-06-2023 Episodic Residual codes; unclassified (11 sources) Device in situ; Translations: [Presence of [...] Test Name Value Interpretation Reference Range Facility ALL PROGESTERONEon PROGESTERONE 20.6 ng/mL . [facility] Comment on above: Follicular phase 0.1 - 0.9 Luteal phase 1.8 - 23.9 Ovulation phase 0.1 - 12.0 First trimester 11.0 - 44.3 Second trimester 25.4 - 83.3 Third trimester 58.7 - 214.0 Postmenopausal 0.0 - 0.1 Performed at: [facility] [address] [id number] Rn Cardiac Rehab: Kelvin Fajardo PhD, Phone: [phone] [facility] Colposcopyon 09-02-2024 Cammie ManeSCOTT 09/02/2024 2:32 PM Colposcopy Date/Time: 09/02/2024 9:34 [...] return in 6 months for Repeat Pap. [facility] HCG ( test) Ql (U)o n 09-02-2024 Preg Test, Ur Negative Negative [facility] Cytology Reporton 08-20-2024 Cytology report Cyto stain.thin prep Doc (Cvx/Vag) (NOTE) Path Number: [id number] DIAGNOSIS Imaged ThinPrep Pap - Cervical (1 monolayer slide): Specimen Adequacy: Satisfactory for evaluation. - Endocervical/transform ation zone component present. Descriptive Diagnosis: Atypical glandular cells present (not otherwise specified). Comments: Specimen was screened at [facility], [address] [place] [address] [employer] Screener: PT Electronically Signed Out Sam Lafleur M.D. kimberly/08/26/2024 Procedure/Addendum HPV Procedure Report High Risk HPV testing was ordered Date Ordered: 08/26/2024 Status: Ordered Source of Specimen: A: Imaged ThinPrep Pap - Cervical (1 monolayer slide) HPV Reflex?............... .......HPV if Abnormal Clinical History Colposcopy: 10/15 Z01.419 Routine territory development manager exam without abnormal findings LMP: 08/17/24 Processing Lab: [address] [address] Interpretation performed at [address] [address] This Pap Test has been evaluated with the assistance of the ThinPrep Pap Test Imaging System. The Pap smear is a screening test primarily for squamous epithelial lesions, which is subject to both false negative and false positive results. Your patient should be reminded to consult you immediately if she experiences any suspicious signs or symptoms, regardless of her Pap smear result. GYNECOLOGIC CYTOLOGY REPORT Patient Name: LORENA DOUGLASS [facility] Rec: [id number] [facility] ANATOMIC PATHOLOGY [address] [facility] [facility]. [place], [place] [address] Normal [facility] ALL PROGESTERONEon 5 PROGESTERONE 8.3 ng/mL . [facility] Comment on above: Follicular phase 0.1 - 0.9 Luteal phase 1.8 - 23.9 Ovulation phase 0.1 - 12.0 First trimester 11.0 - 44.3 Second trimester 25.4 - 83.3 Third trimester 58.7 - 214.0 Postmenopausal 0.0 - 0.1 Performed at: - [facility] [id number] Rn Cardiac Rehab: Kelvin Fajardo PhD, Phone: [phone] [facility] ALL PROGESTERONEon 4 PROGESTERONE 12.9 ng/mL . [facility] Comment on above: Follicular phase 0.1 - 0.9 Luteal phase 1.8 - 23.9 Ovulation phase 0.1 - 12.0 First trimester 11.0 - 44.3 Second trimester 25.4 - 83.3 Third trimester 58.7 - 214.0 Postmenopausal 0.0 - 0.1 Performed at: - [facility] [id number] Rn Cardiac Rehab: Kelvin Fajardo PhD, Phone: [phone] [facility] TSH with Reflexon 02-10-2022 TSH Qn 0.75 m[IU]/L [facility] NON OB TRANSVAGINALon US NON OB TRANSVAGINAL Cris L Linda o n 02/10/2022 11:20 AM UTERUS:anteverted, inhomogeneous echo pattern; fibroid visualized mid / lateral, ? pedunculated Fibroid elton- 0.7cm x 1.3cm x 0.6cm ? ENDO:1.5cm in thickness ? RT. OVARY:seen, cyst elton- 2.7cm x 1.9cm x 1.8cm ? LT. OVARY:seen, wnl Interpreted by: Naman Milan MD Signed by: Naman Milan MD 02/10/22 Final result Normal [facility] XR HYSTEROSALPINGOGRAPHY S&I Ordered By: Mary Kendall on 05-23-2021 Normal exam [employer] Phone: EXAMINATION: FLUOROSCOPIC HYSTEROSALPINGOGRAM 05/23/2021 3:37 pm [...] cavity without evidence of endometrial filling defect. [employer] Phone: Chi, pn Incoming Radiant Results From [employer] - 05/23/2021 4:03 PM EDT EXAMINATION: FLUOROSCOPIC [...] of endometrial filling defect. IMPRESSION: Normal exam [employer] Phone: [employer] Phone: Trista 03-22-2021 CNPN Telephone (ORQ) LORENA DOUGLASS ([id number]) 1985 F Date Time Provider Department 03/22/21 JASE WAGGONER ORQ During your visit today, we recorded the following information about you: Cammie Guzman 03/22/2021 9:17 AM Signed Patient calling regarding appt 03/25. Patient is coming in for 2nd opinion for her hip and would like to know if she has to have surgery does Dr Waggoner do anterior incision? Patient requesting call at [phone] Please advise. Jase Waggoner II, MD 03/28/2021 11:49 AM Signed called and left message to call me at [phone] Marina Richards MA Allergies As of Date: 03/22/2021 (Not on File) Date Reviewed: Never Reviewed Reason for Visit: Patient Question [6847] Problem List As Of Date: 03/22/2021 (None) Encounter Status:Closed by JASE WAGGONER II on 03/28/21 Normal [facility] ProgesteroneOrdered By: Zohra Kendall on 02-14-2021 Progesterone 15.63 ng/mL [facility] [employer] Work Phone: Comment on above: FEMALE (healthy): Follicular phase 0.06-0.89 Ovulation phase 0.12-12.00 Luteal phase 1.83-23.90 Postmenopausal <0.13 [facility] [employer] Phone: Hepatic Function Panelon Albumin [Mass/Vol] 4.9 g/dL 3.5 - 5.2 g/dL [place], [place] Albumin/Globulin [Mass ratio] NOT REPORTED [place] ALP [Catalytic activity/Vol] 41 U/L 35 - 104 U/L [place] ALT [Catalytic activity/Vol] 15 U/L 5 - 33 U/L [place] AST [Catalytic activity/Vol] 15 U/L <32 [place] Bilirubin Ql (U) 0.34 mg/dL 0.3 - 1.2 mg/dL [place] Bilirubin, Indirect CANNOT BE CALCULATED 0 - 1 mg/dL [place] Bilirubin.direct [Mass/Vol] mg/dL <0.31 mg/dL [place] Globulin (S) [Mass/Vol] NOT REPORTED 1.5 - 3.8 g/dL [place] Interpretation and review of laboratory results Abnormal [place] Protein [Mass/Vol] 8.4 g/dL High 6.4 - 8.3 g/dL [place] Liver Profileon 06-12-2019 Albumin [Mass/Vol] 4.9 g/dL Normal 3.5-5.2 [facility] Comment on above: Performed By: #### W KHAI LIVP, SED #### [facility] [address] [place] [address] Rn Cardiac Rehab: Sridhar Ye MD Alkaline Phos 41 U/L Normal 35-104 [facility] Comment on above: Performed By: #### W KHAI LIVP, SED #### [facility] [address] [place] [address] Rn Cardiac Rehab: Sridhar Ye MD ALT [Catalytic activity/Vol] 15 U/L Normal 5-33 [facility] Comment on above: Performed By: #### W BC, LIVP, SED #### [facility] [address] [place] [address] Rn Cardiac Rehab: Sridhar Ye MD AST [Catalytic activity/Vol] 15 U/L Normal <32 [facility] Comment on above: Performed By: #### W BC, LIVP, SED #### [facility] [address] [place] [address] Rn Cardiac Rehab: Sridhar Ye MD Bilirubin Ql (U) 0.34 mg/dL Normal 0.30-1.20 [facility] Comment on above: Performed By: #### W BC, LIVP, SED #### [facility] [address] [place] [address] Rn Cardiac Rehab: Sridhar Ye MD Bilirubin, Indirect CANNOT BE CALCULATED Normal 0.00-1 .00 [facility] Comment on above: Performed By: #### W BC, LIVP, SED #### [facility] [address] [place], [place] [id number] Rn Cardiac Rehab: Sridhar Ye MD Bilirubin.direct [Mass/Vol] mg/dL Normal <0.31 [facility] Comment on above: Performed By: #### W BC, LIVP, SED #### [facility] [address] [place] [address] Rn Cardiac Rehab: Sridhar Ye MD Protein [Mass/Vol] 8.4 g/dL High 6.4-8.3 [facility] Comment on above: Performed By: #### W BC, LIVP, SED #### [facility] [address] [place] [address] Rn Cardiac Rehab: Sridhar Ye MD Albumin/Globulin [Mass ratio] NOT REPORTED Normal 1.0-2.5 [facility] Comment on above: Performed By: #### W BC, LIVP, SED #### [facility] [address] [place] [address] Rn Cardiac Rehab: Sridhar Ye MD Globulin (S) [Mass/Vol] NOT REPORTED Normal 1.5-3.8 [facility] Comment on above: Performed By: #### W BC, LIVP, SED #### [facility] [address] [place], [place] [id number] Rn Cardiac Rehab: Sridhar Ye MD Sedimentation Rateon 019 Sedimentation Rate 15 mm Normal 0-30 [facility] Comment on above: Performed By: #### W BC, LIVP, SED #### [facility] [address] [place] [address] Rn Cardiac Rehab: Sridhar Ye MD Sed Rate 15 mm 0 - 30 mm [place], [place] WBCon 06-12-2019 WBC (Bld) [#/Vol] 11.0 10*3/uL [place] WBC Counton 06-12-2019 WBC (Bld) [#/Vol] 11.0 10*3/uL Normal 3.5-11.0 [facility] Comment on above: Performed By: #### W BC, LIVP, SED #### [facility] [address] [place] [address] Rn Cardiac Rehab: Sridhar Ye MD CONSULTATIONon 08-27-2018 CONSULTATION CONSULTATION PAIN MANAGEMENT Consultation Date: 08-27-18 HISTORY OF PRESENT ILLNESS: Today in the office I saw Lorena Douglass. This is a 32 year-old female who is referred to us by Dr. Ruiz, in [place]. The patient has left hip pain. The [...] The surgeon was Dr. Cazares in the [facility]. The patient is a mother of one, [...] should she wish to explore. cc:Dr. Ruiz [facility] Signed and Approved by: DR DEANNA SEYMOUR 09/05/2018 11:48:00 Normal [facility] Vital Signs Date Time Vital Sign Value Performing Clinician Facility 09-02-2024 08:46-0500 Body mass index (BMI) [Ratio] 26.47 kg/m2 Sam Dion DO Work Phone: [facility] 09-02-2024 08:46-0500 Body weight 76.66 kg Sam Dion DO Work Phone: [facility] 09-02-2024 08:46-0500 Diastolic blood pressure 76 mm[Hg] Sam Dion DO Work Phone: [facility] 09-02-2024 08:46-0500 Systolic blood pressure 118 mm[Hg] Sam Dion DO Work Phone: [facility] 06-19-2024 09:32-0500 Body mass index (BMI) [Ratio] 26.63 kg/m2 Sam Dion DO Work Phone: [facility] 06-19-2024 09:32-0500 Body weight 77.11 kg Sam Dion DO Work Phone: [facility] 06-19-2024 09:32-0500 Diastolic blood pressure 72 mm[Hg] Sam Dion DO Work Phone: [facility] 06-19-2024 09:32-0500 Systolic blood pressure 110 mm[Hg] Sam Dion DO Work Phone: [facility] 08-09-2022 15:27-0500 Body height 170.2 cm Oanh Bennett ASSISTANT COOK-ACCOUNT RELATIONSHIP MANAGER Work Phone: [facility] 08-09-2022 15:27-0500 Body mass index (BMI) [Ratio] 27.72 kg/m2 Oanh Bennett ASSISTANT COOK-ACCOUNT RELATIONSHIP MANAGER Work Phone: [facility] 08-09-2022 15:27-0500 Body temperature 97.81 [degF] Oanh Bennett ASSISTANT COOK-ACCOUNT RELATIONSHIP MANAGER Work Phone: [facility] 08-09-2022 15:27-0500 Body weight 80.29 kg Oanh Bennett APRN-ACCOUNT RELATIONSHIP MANAGER Work Phone: [employer] 09-01-2021 15:04-0500 Body height 170.2 cm Oanh Bennett APRN-ACCOUNT RELATIONSHIP MANAGER Work Phone: [employer] 09-01-2021 15:04-0500 Body mass index (BMI) [Ratio] 26.78 kg/m2 Oanh Bennett APRN-ACCOUNT RELATIONSHIP MANAGER Work Phone: [employer] 09-01-2021 15:04-0500 Body temperature 98.4 [degF] Oahn Sabrinaeren RAMIREZN-ACCOUNT RELATIONSHIP MANAGER Work Phone: [employer] 09-01-2021 15:04-0500 Body weight 77.56 kg Oanh Sabrinaeren RAMIREZN-ACCOUNT RELATIONSHIP MANAGER Work Phone: [employer] Encounters Encounter Date Encounter Type Care Provider Facility Start: 09-06-2024 End: 09-07-2024 [facility] Result Encounter Sam Dion DO Work Phone: [facility] External [facility] Unsolicited Start: 09-06-2024 End: 09-07-2024 [facility]inis[facility] Result Encounter Sam Dion DO Work Phone: [facility] External [facility] Unsolicited Start: 09-02-2024 End: 09-02-2024 Patient encounter procedure Sam Dion DO Work Phone: [facility] Comment on above: Atypical glandular c ells of undetermined significance (KAYLEN) on cervical Pap smear Start: 09-02-2024 End: 09-02-2024 ambulatory SAM DION Not Available Start: 08-20-2024 End: 08-20-2024 ambulatory [facility] Start: 08-20-2024 Encounter for gynecological examination (general) (routine) without abnormal findings [facility] Start: 08-20-2024 End: 08-20-2024 Patient encounter procedure Ana Ruiz MD Work Phone: [facility] Start: 08-20-2024 End: 08-20-2024 Subsequent hospital visit by physician Ana Ruiz MD Work Phone: [facility] Laboratory Comment on above: Well woman exam [...] outpatient new 30 minutes Arlene A Felter ASSISTANT COOK-ACCOUNT RELATIONSHIP MANAGER Work Phone: [facility] Comment on above: Melanocytic nevus of trunk (Primary Dx); Seborrheic keratosis; Dermatofibroma of right upper extremity Start: 09-06-2023 Bamboo flowsheet Arleen A Fel ter ASSISTANT COOK-ACCOUNT RELATIONSHIP MANAGER Work Phone: [facility] Start: 09-06-[address] ASSISTANT COOK-ACCOUNT RELATIONSHIP MANAGER Work Phone: [facility] Start: 08-09-2022 ambulatory [facility] Start: 08-09-2022 End: 08-09-2022 Office outpatient visit 15 minutes Oanh Bennett APRN-DANIS Work Phone: [facility] Comment on above: Hx of total hip arth roplasty, left (Primary Dx) Start: 08-09-2022 End: 08-09-2022 Subsequent hospital visit by physician Oanh TINOCO Work Phone: [facility] Start: 06-05-2022 End: 06-05-2022 Subsequent hospital visit by physician Ana Ruiz MD Work Phone: [facility] Comment on above: Infertility, female, secondary Start: 02-10-2022 End: 02-10-2022 ambulatory ANA L [facility] Start: 02-10-2022 End: 02-10-2022 Subsequent hospital visit by physician Ana Ruiz MD Work Phone: [facility] Comment on above: DUB (dysfunctional u terine bleeding) Start: 01-12-2022 ambulatory [facility] Start: 12-08-2021 ambulatory [facility] Start: 09-01-2021 [facility] Start: 09-01-2021 End: 09-01-2021 Postop follow up visit related to original px Oanh TINOCO Work Phone: [facility] Comment on above: Hx of total hip arth roplasty, left (Primary Dx) Start: 09-01-2021 End: 09-01-2021 Subsequent hospital visit by physician Oanh TINOCO Work Phone: [facility] Start: 05-23-2021 End: 05-23-2021 Patient encounter procedure Ana Ruiz MD Work Phone: [facility] Start: 05-23-2021 End: 05-23-2021 Subsequent hospital visit by physician Ana Ruiz MD Work Phone: [facility] Laboratory Comment on above: Well woman exam with routine gynecological exam; Screening for HPV (human papillomavirus) Start: 05-23-2021 End: 05-25-2021 Subsequent hospital visit by physician Fanta Galindo Radiologist [facility] Comment on above: Infertility, female Start: 02-14-2021 End: 02-14-2021 Subsequent hospital visit by physician Ana Ruiz MD Work Phone: [facility] Laboratory Comment on above: Anovulation Start: 06-12-2019 End: 06-13-2019 Patient encounter procedure [facility] Start: 06-12-2019 End: 06-12-2019 Subsequent hospital visit by physician Ana Ruiz [facility] Start: 11-25-2018 Patient encounter procedure DEANNA Dawna SEYMOUR Facility:[facility] Start: 08-27-2018 End: 08-28-2018 Patient encounter procedure DEANNA S SEYMOUR Facility: Procedures Date Procedure Procedure Detail Performing Clinician Start: 09-06-2024 ALL PROGESTERONE Sam Dion DO Work Phone: Start: 09-02-2024 Urine test visual color cmprsn [...] Work Phone: Start: 05-23-2021 Hysterosalpingography rs&i Mary Delilah Ramirez ol ASSISTANT COOK - CNM Work Phone: Start: 05-23-2021 Microscopic observation [Identifier] in Cervix by Cyto stain Ana Ruiz MD Work Phone: Start: 02-14-2021 Assay of progesterone Mary Kendall AP RN - CNM Work Phone: Start: 06-12-2019 Blood count leukocyte wbc automated CHRISTOPHER BOHACH Start: 06-12-2019 Hepatic function panel CHRISTOPHER BOHAC H Start: 06-12-2019 Sedimentation rate rbc automated TYRONE PHER BOHACH Start: 06-12-2019 Blood count leukocyte wbc automated Christopher J Bohach Work Phone: Start: 06-12-2019 Hepatic function panel Christopher J Boh ach Work Phone: Start: 06-12-2019 Sedimentation rate rbc automated Tyrone pher J Bohach Work Phone: Start: 12-11-2017 Microscopic observation [Identifier] in Cervix by Cyto stain Ana Ruiz MD Work Phone: Plan of Treatment Date Care Activity Detail Author Start: 08-16-2028 Screening for malign ant neoplasm of cervix [facility] Start: 08-16-2026 Screening for malign ant neoplasm of cervix Pap smear [facility] Start: 06-12-2026 DTaP/Tdap/Td vaccine (2 - Td or Tdap) DTaP/Tdap/Td vaccine (2 - Td or Tdap) [facility] Start: 06-12-2026 DTaP/Tdap/Td vaccine (2 - Td) DTaP/Tdap/Td vaccine (2 - Td) [facility] [place] Start: 06-12-2026 Tetanus vaccination [facility] Start: 05-23-2026 Screening for malign ant neoplasm of cervix [facility] Start: 08-24-2025 End: 08-24-2025 Patient encounter procedure 08/24/2025 3:40 PM EST Office Visit [facility] OBSTETRICS & GYNECOLOGY [facility] [address] [place] [address] Mary Kendall APRN - CN [address] [place] [address] yearly [facility] OBSTETRICS & GYNECOLOGY [facility] Comment on above: yearly Start: 05-30-2025 Screening for malign ant neoplasm of cervix Pap smear [facility] Start: 10-20-2024 End: 10-20-2024 Patient encounter procedure 10/20/2024 8:40 AM EDT Office Visit [facility] [address] [place] [id number] Sam Ashley, [address] [place] [address] [facility] Start: 09-02-2024 End: 09-02-2025 Colposcopy Colposcopy Procedures Routine Atypical glandular cells of undetermined significance (KAYLEN) on cervical Pap smear Expected: 09/02/2024 (Approximate), Expires: 09/02/2025 [facility] Work Phone: Comment on above: Expected: 09/02/2024 (Approximate), Expires: 09/02/2025 Start: 08-16-2024 Depression Screen Depression Screen [facility] Start: 06-19-2024 End: 06-19-2025 Antimullerian hormone (AMH) Antimullerian hormone (AMH) Lab Routine Anovulation Expected: 06/19/2024 (Approximate), Expires: 06/19/2025 [facility] Work Phone: Comment on above: Expected: 06/19/2024 (Approximate), Expires: 06/19/2025 Start: 06-19-2024 End: 06-19-2025 Progesterone Progesterone Lab Routine Anovulation Expected: 06/19/2024 (Approximate), Expires: 06/19/2025 [facility] Comment on above: Expected: 06/19/2024 (Approximate), Expires: 06/19/2025 Start: 05-23-2024 Screening for malign ant neoplasm of cervix Pap smear [facility] Start: 04-06-2024 COVID-19 Vaccine ( season) COVID-19 Vaccine ( season) [facility] Start: 03-06-2024 Influenza vaccination Flu vaccine (# 1) [facility] Start: 05-31-2023 End: 05-31-2023 Patient encounter procedure 05/31/2023 Office Visit Obstetrics and Gynecology Mary Kendall APRN - MARK [address] [place] [address] [facility] OBSTETRICS & GYNECOLOGY [facility] Start: 12-11-2022 Cervical cancer screen Cervical canc er screen [place], [place] Start: 12-11-2022 Screening for malign ant neoplasm of cervix Cervical cancer screen [facility] [employer] Phone: Start: 05-30-2022 End: 05-30-2022 Patient encounter procedure [facility] Start: 04-06-2022 Influenza vaccination Flu vaccine (# 1) [facility] Start: 03-06-2022 Influenza vaccination Flu vaccine (# 1) [facility] Start: 02-24-2022 End: 02-24-2022 Patient encounter procedure 02/24/2022 Office Visit Obstetrics and Gynecology Naman Milan MD [address] [place] [address] [facility] OBSTETRICS [facility] Start: 01-19-2022 Depression Screen Depression Screen [facility] Start: 11-27-2021 Screening for malign ant neoplasm of cervix [facility] [employer] Phone: Start: 11-09-2021 End: 11-09-2021 Patient encounter procedure 11/09/2021 Office Visit Orthopaedics Alfred Mercado MD [address] [place] [address] [facility] Start: 2021 Diabetes screen Diabetes screen [facility] Start: 10-15-2021 COVID-19 Vaccine (3 - Booster for Pfizer series) COVID-19 Vaccine (3 - Booster for Pfizer series) [facility] Start: 07-28-2021 End: 07-28-2021 Patient encounter procedure 07/28/2021 Office Visit Family Medicine Ana Ruiz MD [address] [place] [address] [phone] [facility] Start: 07-12-2021 COVID-19 Vaccine (3 - Booster for Pfizer series) COVID-19 Vaccine (3 - Booster for Pfizer series) [facility] Start: 05-23-2021 End: 05-23-2021 Patient encounter procedure 05/23/2021 Office Visit Obstetrics and Gynecology Mary Kendall APRN - MARK [address] [address] [phone] [facility]STETRICS & GYNECOLOGY Start: 04-06-2021 Influenza vaccination Flu vaccine (# 1) [facility] [employer] Phone: Start: 12-11-2020 Screening for malign ant neoplasm of cervix Pap smear [facility] [employer] Phone: Start: 12-22-2019 End: 12-22-2019 Office Visit 12/22/2019 Office Visit Obstetrics and Gynecology Mary Kendall APRN - MARK [address] [place] [address] [phone] [facility] MICROBIOLOGICAL LAB TECHNICIAN Start: 04-06-2019 Influenza vaccination Flu vaccine (# 1) [facility] [place] Start: 11-08-2007 Screening for malign ant neoplasm of cervix CERVICAL CANCER SCREENING DISCUSSION [facility] Start: 2005 Hepatitis B vaccine (1 of 3 - 19+ 3-dose series) Hepatitis B vaccine (1 of 3 - 19+ 3-dose series) [facility] Start: 2005 Third diphtheria, tetanus and acellular pertussis (DTaP) vaccination TDAP (ADULT) [facility] Start: 2004 Hepatitis C screening Hepatitis C sc reen [facility] Start: 2004 Tetanus vaccination TETANUS [facility] Start: 2001 HIV screening HIV SCREENING DISCUSSION [facility] Start: 11-08-1999 Varicella vaccine (1 of 2 - 13+ 2-dose series) Varicella vaccine (1 of 2 - 13+ 2-dose series) [facility] Start: 1998 COVID-19 Vaccine (1) COVID-19 Vaccin e (1) [facility] [employer] Phone: Start: 11-08-1991 COVID-19 VACCINE (1) COVID-19 VACCIN E (1) [facility] Start: 11-08-1987 Varicella vaccine (1 of 2 - 2-dose childhood series) Varicella vaccine (1 of 2 - 2-dose childhood series) [facility] Start: 1986 Hepatitis C antibody , confirmatory test HEPATITIS C VIRUS SCREENING [facility] Start: 1986 Hepatitis C screening [facility] End: 05-23-2021 Cytopathology procedure, preparation of smear, genital source PAP SMEAR Lab Routine Well woman exam with routine gynecological exam Screening for HPV (human papillomavirus) 1 Occurrences starting 05/23/2021 until 05/23/2021 [facility] Phone: Comment on above: 1 Occurrences starti ng 05/23/2021 until 05/23/2021 End: 08-20-2024 Cytopathology procedure, preparation of smear, genital source PAP SMEAR Lab Routine Well woman exam with routine gynecological exam 1 Occurrences starting 08/20/2024 until 08/20/2024 [facility] Comment on above: 1 Occurrences starti ng 08/20/2024 until 08/20/2024 End: 02-10-2022 Follicle Stimulating Hormone [facility] [employer] Phone: Comment on above: 1 Occurrences starti ng 02/10/2022 until 02/10/2022 End: 02-10-2022 Luteinizing Hormone [employer] Phone: Comment on above: 1 Occurrences starti ng 02/10/2022 until 02/10/2022 End: 06-05-2022 Progesterone [facility] Phone: Comment on above: 1 Occurrences starti ng 06/05/2022 until 06/05/2022 End: 02-10-2022 Prolactin [employer] Phone: Comment on above: 1 Occurrences starti ng 02/10/2022 until 02/10/2022 Skeletal X-ray of pelvis and hip XR HIP WITH PELVIS LEFT Imaging Routine Hx of total hip arthroplasty, left 09/01/2021 2:55 PM [employer] XR Pelvis and Hip - left Views XR HIP WITH PELVIS LEFT Imaging Routine Hx of total hip arthroplasty, left 08/09/2022 3:25 PM [facility] [employer] [facility] Immunizations Immunization Date Immunization Notes Care Provider Landon head 06-12-2016 tetanus toxoid, redu aster diphtheria toxoid, and acellular pertussis vaccine, adsorbed [place], [place] 05-11-2016 influenza, injectabl e, quadrivalent, preservative free [place] Payers Date Payer Category Payer Unknown ANTHEM ANTHEM HM O PPO POS [id number] 2022-Present [address] [place] [address] [id number] 2021 Unknown [id number] [id number] .[id number] 2021 Unknown [id number] [id number] .[id number] 2021 Unknown ANTHEM ANTHEM HM O PPO POS [id number] 2021-Present [address] [place] [address] [id number] [id number] .[id number] 2021 Unknown [id number] 1.2.840.912660.1.13.239.2 .[id number] 2017 Private Health Insurance [id number] .[id number] .[id number] 2017 Unknown UMR UMR [id number] 2017-[place] [address] [id number] [id number] .[id number] 1986 Unknown [id number] 2.16.840.1.025022.3.579.2 .593 1986 Unknown [id number] 2.16.840.1.530878.3.579.2 .593 1986 Unknown [id number] 2.16.840.1.320075.3.579.2 .174 1986 Unknown [id number] 2.16.840.1.187253.3.579.2 .175 1986 Unknown [id number] 2.16.840.1.424801.3.579.2 .983 1986 Unknown [id number] 2.16.840.1.805048.3.579.2 .983 1986 Unknown [id number] 2.16.840.1.169226.3.579.2 .983 1986 Unknown [id number] 2.16.840.1.212969.3.579.2 .983 1986 Unknown [id number] 2.16.840.1.113769.3.579.2 .983 1986 Unknown [id number] 2.16.840.1.384449.3.579.2 .983 1986 Unknown [id number] 2.16.840.1.664966.3.579.2 .983 1986 Unknown [id number] 2.16.840.1.383725.3.579.2 .173 1986 Unknown [id number] 2.16.840.1.125690.3.579.2 .1259 1986 Unknown [id number] 2.16.840.1.864741.3.579.2 .9 1986 Unknown [id number] 2.16.840.1.722942.3.579.2 .1259 1959 Unknown [id number] Social History Date Type Detail Facility Start: 12-16-2018 End: 04-10-2023 Tobacco smoking status MNIS Never smoker [facility] Start: 12-16-2018 End: 09-06-2023 Alcohol intake No [facility] Start: 1985 Sex Assigned At Not on file [place], [place] Start: 01-19-2021 End: 04-10-2023 Tobacco use and exposure Never used [facility] Start: 01-19-2021 End: 05-30-2022 Alcohol intake Current non-drinker of alcohol (finding) [facility] Phone: Start: 01-19-2021 End: 09-06-2023 Alcohol intake [facility] Start: 01-30-2022 End: 02-09-2022 Exposure to SARS-CoV-2 (event) Not sure [facility] Start: 09-01-2021 End: 08-20-2024 Alcohol intake Current drinker of alcohol (finding) [facility] Start: 04-14-2021 History SDOH Alcohol Comment occasional [facility] Start: 07-28-2021 History SDOH Financial 5 [employer] Phone: Start: 07-28-2021 History SDOH Food Worry 1 [facility] [employer] Phone: Start: 04-10-2023 End: 09-02-2024 Alcohol intake Lifetime non-drinker (finding) [facility] Start: 04-09-2023 Alcohol Comment caffeine: 1-2 cups per day [facility] How hard is it for y ou to pay for the very basics like food, housing, medical care, and heating Not hard at all [employer] (I/We) worried hernan er (my/our) food would run out before (I/we) got money to buy more. Never true [facility] Start: 08-16-2023 Alcohol Comment occ [facility] [employer] Medical Equipment Procedure Code Equipment Code Equipment Origin al Text Equipment Identifier Dates [place] Griptio n Acetabular Shell Sector [id number] Start: 08-09-2021 [place] Altrx Polyethylene Acetabular Lner [id number] Start: 08-09-2021 Femoral Stem Taper Actis Duofix Hip Prosthesis Cementless [id number] Start: 08-09-2021 Biolox Delta Cer amic Femoral Head [id number] Start: 08-09-2021 Clinical Notes 09-01-2021 to 09-02-2024 Cammie Mane, GENERAL PRODUCTION WORKER - 09/02/2024 8:30 AM Jewel Lopez, GENERAL PRODUCTION WORKER - 06/19/2024 8:50 AM Leatha Salazar, ASSISTANT COOK-ACCOUNT RELATIONSHIP MANAGER - 09/06/2023 3:55 PM Donna Gallardo - [...] nursing note reviewed. Exam conducted with a movie extra present. Vitals: Estimated body mass index is 26.47 kg/m as calculated from the following: Height as of 23: 5' 7 . Weight as of this [...] Sam Ashley DO documented in this encounter [facility] 06-19-2024 History of Presen t illness [...] nursing note reviewed. Exam conducted with a movie extra present. Vitals: Estimated body mass index is 26.63 kg/m as calculated from the following: Height as of 04/10/23: 5' 7 . Weight as of this encounter: 170 lb. BP: 110/72 Patient's last menstrual period was 05/30/2024 (approximate). ASSESSMENT & PLAN ICD-10-CM 1. Female infertility N97.9 Patient presents today for 2nd opinion on conceiving. Patient has seen previous [facility] [place] [place] and fertility specialist. Patient has had [facility] [...] Sam Ashley DO documented in this encounter [facility] 09-06-2023 History of Presen t illness [...] Visit: 2 years documented in this encounter [facility] 08-09-2022 History of Presen t illness Narrative Ortho Nurse - Established Patient Intake Room#: 4 Date: 08/09/2022 3:29 PM Patient: Lorena Douglass MR#: [id number] : 1985 Age: 36 y.o. 1yr L MAX Pt stated she is doing really good and denies any pain at this time.0/10 on the pain scale. Referring Physician: Self, Self Insurance: Payor: [employer] / Plan: ANTHEM HMO PPO POS / [...] hour before procedure 8 capsule 1 Aspirin Buf,TvMusl-ZgKwzn-QkV, 81 MG tablet Take 81 mg by mouth daily. cholecalciferol 50 MCG (2000 UT) capsule Take by mouth 2 times daily. docusate 100 MG capsule Take 1 capsule by mouth 2 times daily. ergocalciferol 1.25 MG (24442 UT) capsule Take 1 capsule by mouth [...] procedure, Disp: 8 capsule, Rfl: 1 Aspirin Buf,GdKpul-HoRmwc-HyV, 81 MG tablet, Take 81 mg by mouth daily., Disp: , Rfl: cholecalciferol 50 MCG (2000 UT) capsule, Take by mouth 2 times daily., Disp: , Rfl: docusate 100 MG capsule, Take 1 capsule by mouth 2 times daily., Disp: , Rfl: ergocalciferol 1.25 MG (42528 UT) capsule, Take 1 capsule by mouth [...] have discussed her young age. She needs long-term follow up of implant. She has been active. Running 2-5 miles 3-4 days per week. Feels great. Greater than 20 minutes time was spent in review of the medical records, review of previous imaging, and more than 50% of that time was spent on face to face time with patient. Oanh Bennett, RUMA-DANIS I have reviewed the findings of my clinical staff below and agree with their assessment. Ortho Nurse - Established Patient Intake Room#: 4 Date: 08/09/2022 3:29 PM Patient: Lorena Douglass MR#: [id number] : 1985 Age: 36 y.o. 1yr L MAX Pt stated she is doing really good and denies any pain at this time.0/10 on the pain scale. Referring Physician: Self, Self Insurance: Payor: DONNAEM / Plan: ANTHEM O PPO POS / Product Type: *No Product [...] hour before procedure 8 capsule 1 Aspirin Buf,QrAmzd-DtCrmh-LoK, 81 MG tablet Take 81 mg by mouth daily. cholecalciferol 50 MCG (2000 UT) capsule Take by mouth 2 times daily. docusate 100 MG capsule Take 1 capsule by mouth 2 times daily. ergocalciferol 1.25 MG (99545 UT) capsule Take 1 capsule by mouth [...] procedure, Disp: 8 capsule, Rfl: 1 Aspirin Buf,HbXjbe-XwWjjt-BsE, 81 MG tablet, Take 81 mg by mouth daily., Disp: , Rfl: cholecalciferol 50 MCG (2000 UT) capsule, Take by mouth 2 times daily., Disp: , Rfl: docusate 100 MG capsule, Take 1 capsule by mouth 2 times daily., Disp: , Rfl: ergocalciferol 1.25 MG (65469 UT) capsule, Take 1 capsule by mouth [...] [cashew nut oil]. documented in this encounter [facility] 09-01-2021 History of Presen t illness Narrative HPI: Gricelda Douglass is an established patient of [facility]. She is here 3 weeks post direct [...] have reviewed the findings of the clinical sales support technician and agree with their assessment. EARNEST [facility] Ortho Nurse Established Patient Intake Room#: 4 Date: 09/01/2021 3:05 PM Patient: Lorena Douglass MR#: [id number] : 1985 Age: 35 y.o. 3wk S/P L MAX Pt stated she is doing good and mild pain 1-2/10 on the pain scale. Pt was wearing her jeaneth hose and using a walkler at the time of visit. Referring Physician: Oanh Bennett APRN-CNP Insurance: Payor: [employer] / [facility] / Product Type: *No [...] blood clot prevention 70 tablet 0 Aspirin Buf,JoQufa-PxMxiv-HpO, 81 MG tablet Take 81 mg by [...] mouth 2 times daily. ergocalciferol 1.25 MG (80817 UT) capsule Take 50,000 Units by mouth [...] prevention, Disp: 70 tablet, Rfl: 0 Aspirin Buf,SdPsvi-WsYfyy-XhC, 81 MG tablet, Take 81 mg by [...] daily., Disp: , Rfl: ergocalciferol 1.25 MG (09346 UT) capsule, Take 50,000 Units by mouth [...] 09/01/2021 3:05 PM Patient: Lorena Douglass MR#: [id number] : 1985 Age: 35 y.o. 3wk S/P L MAX Pt stated she is doing good and mild pain 1-2/10 on the pain scale. Pt was wearing her jeaneth hose and using a walkler at the time of visit. Referring Physician: Oanh Bennett APRN-CNP Insurance: Payor: [employer] / Plan: [facility] PPO POS / Product Type: *No Product [...] blood clot prevention 70 tablet 0 Aspirin Buf,FjEwng-GeMvkb-PiA, 81 MG tablet Take 81 mg by [...] mouth 2 times daily. ergocalciferol 1.25 MG (71797 UT) capsule Take 50,000 Units by mouth [...] prevention, Disp: 70 tablet, Rfl: 0 Aspirin Buf,AbFulb-GvRlac-ZoJ, 81 MG tablet, Take 81 mg by [...] daily., Disp: , Rfl: ergocalciferol 1.25 MG (24375 UT) capsule, Take 50,000 Units by mouth [...] [cashew nut oil]. documented in this encounter [facility] Evaluation note Diagnosis Anovulation Female infertility associated with anovulation documented in this encounter [facility] Phone: evaluation note* Diagnosis Well woman exam with routine gynecological exam Routine gynecological examination Screening for HPV (human papillomavirus) Special screening examination for human papillomavirus (HPV) documented in this encounter [facility] Phone: evaluation note* Diagnosis Infertility, female Female infertility of unspecified origin documented in this encounter [facility] Phone: [email or web address] note* Diagnosis Hx of total hip arthroplasty, left- Primary [facility] Diagnosis DUB (dysfunctional uterine bleeding) Other disorder of menstruation and other abnormal bleeding from female genital tract documented in this encounter [facility] [employer] Phone: evaluation note* Diagnosis Infertility, female, secondary Female infertility of unspecified origin documented in this encounter [facility] [employer] Phone: evaluation note* Diagnosis Hx of total hip arthroplasty, left- Primary [facility] Diagnosis Melanocytic nevus of trunk- Primary Benign neoplasm of skin of trunk, except scrotum Seborrheic keratosis Dermatofibroma of right upper extremity documented in this encounter [facility] Healthcare[facility] note* Diagnosis Anovulation Female infertility associated with anovulation documented in this encounter [facility] HealthcareEvaluation note* Diagnosis Well woman exam with routine gynecological exam Routine gynecological examination [facility]* Diagnosis Atypical glandular cells of undetermined significance (KAYLEN) on cervical Pap smear documented in this encounter [facility] Healthcare Summary Purpose Family History No Family History Records FoundNo Family History Records FoundNo Family History Records FoundNo Family History Records FoundNo Family History Records FoundNo Family History Records FoundNo Family History Records FoundNo Family History Records Found Advance Directives Documents on File Type Date Recorded Patient Linen Aide Expl anation Advance Directives and Living Will Power of Computer Security Coordinator Latest Code Status on File Code Status Date Activated Date Inactivated Comments Full Code 07/10/2016 8:33 PM 07/12/2016 5:11 PM Full Code 07/09/2016 3:18 PM 07/10/2016 8:33 PM Documents on File Type Date Recorded Patient Linen Aide Expl anation ACP-Advance Directive ACP-Power of Computer Security Coordinator Documents on File Type Date Recorded Patient Linen Aide Expl anation ACP-Advance Directive ACP-Power of Computer Security Coordinator Latest Code Status on File Code Status Date Activated Date Inactivated Comments Full Code 07/10/2016 8:33 PM 07/12/2016 5:11 PM Full Code 07/09/2016 3:18 PM 07/10/2016 8:33 PM Documents on File Type Date Recorded Patient Linen Aide Expl anation Advance Directives/Living Will 08/09/2021 8:00 [...] female Procedures XR HYSTEROSALPINGOGRAPHY S&I Mary Kendall, ASSISTANT COOK - CNM [address] [place] [address] Specialty Diagnoses / Procedures Referred By Zuleyma kasper Referred To Contact Diagnoses Hx of total hip arthroplasty, left Procedures XR HIP WITH PELVIS LEFT Oanh Bennett, ASSISTANT COOK-ACCOUNT RELATIONSHIP MANAGER [address] [place] [address] Referral ID Status Reason Start Date Expiration Date V isits Requested Visits Authorized [id number] New Request 08/19/2021 09/13/2022 1 1 Referral ID Status Reason Start Date Expiration Date V isits Requested Visits Authorized [id number] Pending Review 08/01/2022 08/26/2023 1 1 Additional Source Comments INFORMATION SOURCE (unrecogn ized section and content) DATE CREATED AUTHOR 09/24/2018 [facility] DATE CREATED AUTHOR AUTHOR'S ORGANIZ ATION 06/13/[address] [facility] DATE CREATED AUTHOR AUTHOR'S ORGANIZ ATION 09/09/2021 [facility] DATE CREATED AUTHOR AUTHOR'S ORGANIZ ATION 05/31/2022 [facility] DATE CREATED AUTHOR AUTHOR'S ORGANIZ ATION 08/09/2022 [facility] DATE CREATED AUTHOR AUTHOR'S ORGANIZ ATION 08/18/2022 [facility] DATE CREATED AUTHOR AUTHOR'S ORGANIZ ATION [facility] DATE CREATED AUTHOR AUTHOR'S ORGANIZ ATION 09/03/2024 [facility] d[facility] Specialists EPIC Reason for Visit (unrecogniz ed section and content) Status Reason Specialty Diagnoses / Procedures Re ferred By Contact Referred To Contact Closed Radiology Diagnoses Infertility, female Procedures XR HYSTEROSALPINGOGRAPHY S&I Mary Kendall, ASSISTANT COOK - CNM [address] [place] [address] Specialty Diagnoses / Procedures Referred By Contac t Referred To Contact Diagnoses Hx of total hip arthroplasty, left Procedures XR HIP WITH PELVIS LEFT Oanh Bennett, ASSISTANT COOK-ACCOUNT RELATIONSHIP MANAGER [address] [place] [address] Referral ID Status Reason Start Date Expiration Date V isits Requested Visits Authorized [id number] New Request 08/19/2021 09/13/2022 1 1 Reason Comments Post Op Visit Referral ID Status Reason Start Date Expiration Date V isits Requested Visits Authorized [id number] Pending Review 08/01/2022 08/26/2023 1 1 Reason Comments Follow-up Reason Comments Skin Check Reason Comments Infertility Pt present today for a second opinion on infertility. Pt currently sees Mary Kendall. Reason Comments Colposcopy Care Teams (unrecognized sec tion and content) Technical Services Specialist Relationship Specialty Start Date End Date Ana Ruiz MD [address] [place] [address] PCP - General Family Medicine 04/14/21 Technical Services Specialist Relationship Specialty Start Date End Date Ana Ruiz MD [address] [place] [address] PCP - General Family Medicine 04/14/21 Technical Services Specialist Relationship Specialty Start Date End Date Ana Ruiz MD [address] [place] [address] PCP - General Family Medicine 04/22/13 Technical Services Specialist Relationship Specialty Start Date End Date Ana Ruiz MD [address] [place] [address] PCP - General Family Medicine 04/22/13 Technical Services Specialist Relationship Specialty Start Date End Date Ana Ruiz MD PCP - General Family Medicine 04/14/21 Technical Services Specialist Relationship Specialty Start Date End Date Ana Ruiz MD PCP - General Family Medicine 04/14/21 Technical Services Specialist Relationship Specialty Start Date End Date Ana Ruiz MD [address] [place] [id number] PCP - General Family Medicine 04/10/23 Technical Services Specialist Relationship Specialty Start Date End Date Ana Ruiz MD [address] [place] [id number] PCP - General Family Medicine 04/10/23 Technical Services Specialist Relationship Specialty Start Date End Date Ana Ruiz MD [address] [place], [place] [id number] PCP - General Family Medicine 04/10/23 Technical Services Specialist Relationship Specialty Start Date End Date Ana Ruiz MD [address] [place] [id number] PCP - General Family Medicine 04/10/23 Technical Services Specialist Relationship Specialty Start Date End Date Ana Ruiz MD [address] [place] [id number] PCP - General Family Medicine 04/10/23 Technical Services Specialist Relationship Specialty Start Date End Date Ana Ruiz MD [address] [place] [id number] PCP - General Family Medicine 04/10/23 Technical Services Specialist Relationship Specialty Start Date End Date Ana Ruiz MD [address] [place] [address] PCP - General Family Medicine 04/22/13 Technical Services Specialist Relationship Specialty Start Date End Date Ana Ruiz MD [address] [place] [address] PCP - General Family Medicine 04/10/23 FOR [...] BE BASED ON THE PRIMARY CLINICAL RECORDS. [email or web address] [facility]. provides no warranty or guarantee of the accuracy or completeness of information in this document.
[2024-10-04 04:07] LABS: Progesterone 10.1 ng/mL (.)
== END 2024-10-03 08:03 | disposition home or self-care (01) ==
LOC: LAB 08:03
PROVIDERS: PCP Family Medicine; Visit Provider Obstetrics & Gynecology
DX: N97.0 Female infertility associated with anovulation (principal)
CPT/HCPCS: 36415; 84144

== ENCOUNTER 2024-10-30 16:32 | Outpatient (OUT) | payer OTHER, SELFPAY ==
--- OUTSIDE RECORDS SUMMARY | 2024-10-30 17:04 | XMS_ITS | CCD ---
Author Organization [facility] Care Team Providers Care Human Resources Compliance Manager Name Role Phone SEYMOUR, DEANNA S Admitting Unavailable SEYMOUR, DEANNA S Attending Unavailable SEYMOUR, DEANNA S Consulting Unavailable YULIYA RUIZCY L Consulting Unavailable SEYMOUR, DEANNA S Admitting Unavailable SEYMOUR, DEANNA S Attending Unavailable GERARD RUIZ Consulting Unavailable KRISTEN GREWAL Referring Unavailabl e GERARD RUIZ Primary Care Unavailable Gerard Ruiz Primary Care Provider Gerard Ruiz MD Primary Care Provider Gerard Ruiz MD Primary Care Provider Gerard Ruiz MD Primary Care Provider GERARD RUIZ Primary Care Unavailable MARY KENDALL Referring Unavailable Gerard Ruiz MD Primary Care Provider GERARD RUIZ Primary Care Unavailable ALFRED MERCADO Referring Unavailable ALFRED MERCADO Attending Unavailable Gerard Ruiz MD Primary Care Provider [phone] Gerard Ruiz MD Primary Care Provider Gerard Ruiz MD Primary Care Provider MARY KENDALL Referring Unavailable GERARD RUIZ Primary Care Unavailable DAVID ASHLEY Attending Unavailable PATRICK PERALTA Attending Unavailable DAVID ASHLEY Attending Unavailable Gerard Ruiz MD Primary Care Provider OANH BENNETT Attending Unavailable OANH BENNETT Referring Unavailable GERARD RUIZ Primary Care Unavailable OANH BENNETT Attending Unavailable SELF, SELF Referring Unavailable GERARD RUIZ Primary Care Unavailable Allergies Allergy Classification Reported Allergen(s) Allergy Type Date of Onset Reaction(s) Facility (9 sources) cashew nut allergenic extract Drug Allergy 1 [facility] (11 sources) Cashew nut Propensity to adverse reactions 1 [facility] Medications Current Medications Medication Drug Class(es) Dates Sig (Normalized) Sig (Original) acetaminophen 325 mg oral tablet (6 sources) Start: 08-09-2021 take 2 tablets by mouth every four hours as needed acetaminophen 325 MG tablet Take 2 tablets by mouth every 4 hours as needed for Mild Pain. 50 tablet 1 08/09/2021 Active acetaminophen 325 mg / HYDROcodone bitartrate 5 mg oral tablet (3 sources) Opioid Agonist Start: 08-09-2021 take 1 tablet by mouth once daily as needed hydroCODone-acetam inophen 5-325 MG tablet Indications: Acute postoperative pain of left hip Take 1-2 tablets by mouth every 6 hours as needed for up to 7 days. Do not take over 4000mg acetaminophen daily. 20 tablet 08/09/2021 Active amoxicillin 500 mg oral capsule (6 sources) Penicillin-class Antibacterial Start: 09-01-2021 End: 08-09-2023 Amoxicillin 500 MG capsule Take 4 capsules 1 hour before procedure 8 capsule 1 08/09/2022 08/09/2023 Active apixaban 2.5 mg oral tablet (4 sources) Factor Xa Inhibitor Start: 08-09-2021 End: 09-13-2021 take 1 tablet by mouth every twelve hours apixaban 2.5 MG tablet Take 1 tablet by mouth every 12 hours. This medication is for blood clot prevention 70 tablet 08/09/2021 Active aspirin 325 mg delayed release oral tablet (20 sources) Platelet Aggregation Inhibitor, Nonsteroidal Anti-inflammatory Drug Start: 08-21-2016 take 1 tablet by mouth once daily aspirin 325 MG EC tablet Indications: Hx pulmonary embolism Take 1 tablet by mouth daily 30 tablet 3 08/21/2016 Active take 1 tablet by mouth once petr y Aspirin Buf,CaIifu-LtRzld-FjX, 81 MG tablet Take 81 mg by mouth daily. Active aspirin 81 MG EC tablet 1 (one) time each day at the same time. Active calcium carbonate 1250 mg ch ewable tablet (16 sources) calcium carbonat e 1250 (500 Ca) MG Chew Tab Chew 1 tablet 2 times daily. Active calcium carbonat e (TUMS) 500 MG chewable tablet Take 1 tablet by mouth as needed Active take 1 tablet by mouth once petr y calcium carbonate (OSCAL) 500 MG TABS tablet Take 500 mg by mouth daily Active celecoxib 200 mg oral capsule (4 sources) Nonsteroidal Anti-inflammatory Drug Start: 08-09-2021 End: 09-20-2021 take 1 capsule by mouth twice daily celecoxib 200 MG capsule Take 1 capsule by mouth 2 times daily. 84 capsule 08/09/2021 Active cholecalciferol 0.05 mg oral capsule (9 sources) Vitamin D cholecalciferol 50 MCG (2000 UT) capsule Take by mouth 2 times daily. Active Cholecalciferol (VITAMIN D) 50 MCG (2000 UT) CAPS capsule Take by mouth daily Active UEE-TPS-Edjxipqj M11-Upyjdds E (COQ-10 & FISH OIL PO) (1 source) VEM-CSF-Ohcvbykg P72-Zsrkacj E (COQ-10 & FISH OIL PO) CoQ-10 & Fish Oil Active docusate sodium 100 mg oral capsule (13 sources) take 1 capsule by mouth twice daily docusate 100 MG capsule Take 1 capsule by mouth 2 times daily. Active efinaconazole 100 mg/ml topical solution (19 sources) Azole Antifungal Start: 017 End: Jublia 10 % Solution topical solution APPLY EXTERNALLY TO THE AFFECTED AREA ONCE A DAY 01/24/2021 Active ergocalciferol 1.25 mg oral capsule (6 sources) Provitamin D2 Compound take 1 capsule by mouth every week ergocalciferol 1.25 MG (02193 UT) capsule Take 1 capsule by mouth once a week. Active letrozole 2.5 mg oral tablet (1 [...] omeprazole 20 mg delayed release oral capsule (6 sources) Proton Pump Inhibitor Start: 08-09-2021 take 1 capsule by mouth once daily omeprazole [address] capsule Take 1 capsule by mouth daily. 30 capsule 08/09/2021 Active ondansetron 4 mg oral tablet (6 sources) Serotonin-3 Receptor Antagonist Start: 08-09-2021 take 1 tablet by mouth every eight hours as needed ondansetron 4 MG tablet Take 1 tablet by mouth every 8 hours as needed for Nausea. 6 tablet 08/09/2021 Active Vit-Fe Fumarate-FA ( PLUS/IRON) 27-1 [...] Active Vit-Fe Fumarate-FA (PrePLUS) 27-1 MG tablet (6 sources) Start: 03-22-2021 Vit-Fe Fumarate-FA (PrePLUS) 27-1 MG tablet Take by mouth daily. 03/22/2021 Active Start: 03-22-2021 Vit-F e Fumarate-FA (PrePLUS) 27-1 MG tablet Take by [...] Active traMADol hydrochloride 50 mg oral tablet (3 sources) Opioid Agonist Start: 08-18-2021 take 1-2 tablets by mouth every six hours as needed for pain traMADol 50 MG tablet Indications: Acute postoperative pain of left hip 1-2 tabs po q 6 hr PRN pain 20 tablet 08/18/2021 Active VITAMIN K PO (3 sources) [...] tablet before bedtime. 06/19/2024 Discontinued (Therapy completed) iohexol (OMNIPAQUE 240) [...] [Anxiety disorder, unspecified] Onset: 01-05-2015 07-10-2016 Chronic Complication of device; implant or graft (5 sources) Pain due to internal orthopedic prosthetic devices, implants and grafts, sequela; Translations: [Joint pain] Onset: 01-12-2022 Episodic Female infertility (5 sources) Anovulation; Translations: [Female [...] of left artificial hip joint] Chronic Other female genital disorders (1 source) Abnormal uterine bleeding; Translations: [Other specified abnormal uterine and vaginal bleeding] Chronic Other female genital disorders (1 source) Other specified abnormal uterine and vaginal bleeding; Translations: [Other specified abnormal uterine and vaginal bleeding] Onset: 02-10-2022 Chronic Other non-traumatic joint disorders (4 sources) Pain in left hip; Translations: [PAIN IN LEFT HIP] Onset: 08-27-2018 Episodic Other non-traumatic joint disorders (1 source) Joint pain 10-17-2024 Episodic Other and delivery including normal (14 [...] seborrheic keratosis] 09-06-2023 Episodic Residual codes; unclassified (12 sources) Device in situ; Translations: [Presence of functional implant, unspecified] Onset: 04-10-2023 04-10-2023 Chronic Residual codes; unclassified (1 source) Other specified postprocedural states; Translations: [OTH SPECIFIED POSTPROCEDURAL STATES] Onset: 08-29-2018 Spondylosis; intervertebral disc disorders; other back problems (2 sources) Low back pain; Translations: [Left low back pain, unspecified chronicity, unspecified whether sciatica present] 10-17-2024 Episodic Unclassified (1 source) Low back pain, unspecified; Translations: [Low back pain, unspecified] Onset: 10-16-2024 Past or Other Problems Problem Classification Problem Date Documented Da te Episodic/Chronic Asthma (7 sources) Mild intermittent asthma; Translations: [Mild intermittent asthma, uncomplicated] Onset: 07-10-2016 Resolved: 08-15-2016 08-15-2016 Chronic Prolonged (7 sources) Post-term - not delivered; Translations: [Post-term ] Onset: 07-10-2016 Resolved: 08-15-2016 08-15-2016 Episodic Pulmonary heart disease (7 sources) H/O: pulmonary embolus; Translations: [Personal history of pulmonary embolism] Onset: 07-10-2016 Resolved: 08-15-2016 08-15-2016 Episodic Unclassified (1 source) Low back pain, unspecified; Translations: [Low back pain, unspecified] Onset: 10-16-2024 Results Test Name Value Interpretation Reference Range Facility ALL PROGESTERONEon PROGESTERONE 10.1 ng/mL . [facility] Comment on above: Follicular phase 0.1 - 0.9 Luteal phase 1.8 - 23.9 Ovulation phase 0.1 - 12.0 First trimester 11.0 - 44.3 Second trimester 25.4 - 83.3 Third trimester 58.7 - 214.0 Postmenopausal 0.0 - 0.1 Performed at: [address] [id number] It Application Administrator: Kelvin Fajardo PhD, Phone: [phone] [facility] ALL PROGESTERONEon PROGESTERONE 20.6 ng/mL . [facility] Comment on above: Follicular phase 0.1 - 0.9 Luteal phase 1.8 - 23.9 Ovulation phase 0.1 - 12.0 First trimester 11.0 - 44.3 Second trimester 25.4 - 83.3 Third trimester 58.7 - 214.0 Postmenopausal 0.0 - 0.1 Performed at: [address] [id number] It Application Administrator: Kelvin Fajardo PhD, Phone: [phone] [facility] Colposcopyon 09-02-2024 Cammie Mane LPN 09/02/2024 2:32 PM Colposcopy Date/Time: 09/02/2024 9:34 AM Performed by: David Ashley DO Authorized by: Daivd Ashley DO Procedure location: cervix and vagina [...] return in 6 months for Repeat Pap. [facility] HCG ( test) Ql (U)o n 09-02-2024 Preg Test, Ur Negative Negative [facility] Cytology Reporton 08-20-2024 Cytology report Cyto stain.thin prep Doc (Cvx/Vag) (NOTE) Path Number: [id number] DIAGNOSIS Imaged ThinPrep Pap - Cervical (1 monolayer slide): Specimen Adequacy: Satisfactory for evaluation. - Endocervical/transform ation zone component present. Descriptive Diagnosis: Atypical glandular cells present (not otherwise specified). Comments: Specimen was screened at [facility], [facility] [address] [employer] Screener: PT Electronically Signed Out Sam Lafleur M.D. kimberly/08/26/2024 Procedure/Addendum HPV Procedure Report High Risk HPV testing was ordered Date Ordered: 08/26/2024 Status: Ordered Source of Specimen: A: Imaged ThinPrep Pap - Cervical (1 monolayer slide) HPV Reflex?............... .......HPV if Abnormal Clinical History Colposcopy: 10/15 Z01.419 Routine photo checker and assembler exam without abnormal findings LMP: 08/17/24 Processing Lab: [address] [id number] Interpretation performed at [address] [id number] This Pap Test has been evaluated with [...] GYNECOLOGIC CYTOLOGY REPORT Patient Name: LORENA DOUGLASS [facility] Rec: [id number] [facility] [employer] [facility] ANATOMIC PATHOLOGY [address] [facility]. [place], [place] [address] Normal [facility] ALL PROGESTERONEon 5 PROGESTERONE 8.3 ng/mL . [facility] Comment on above: Follicular phase 0.1 - 0.9 Luteal phase 1.8 - 23.9 Ovulation phase 0.1 - 12.0 First trimester 11.0 - 44.3 Second trimester 25.4 - 83.3 Third trimester 58.7 - 214.0 Postmenopausal 0.0 - 0.1 Performed at: [facility] [employer] [id number] It Application Administrator: Kelvin Fajardo PhD, Phone: [phone] [facility] ALL PROGESTERONEon 4 PROGESTERONE 12.9 ng/mL . [facility] Comment on above: Follicular phase 0.1 - 0.9 Luteal phase 1.8 - 23.9 Ovulation phase 0.1 - 12.0 First trimester 11.0 - 44.3 Second trimester 25.4 - 83.3 Third trimester 58.7 - 214.0 Postmenopausal 0.0 - 0.1 Performed at: [employer] [id number] It Application Administrator: Kelvin Fajardo PhD, Phone: [phone] [facility] TSH with Reflexon 02-10-2022 TSH Qn 0.75 m[IU]/L [facility] NON OB TRANSVAGINALon NON OB TRANSVAGINAL Cris L Linda o n 02/10/2022 11:20 AM UTERUS:anteverted, inhomogeneous echo pattern; fibroid visualized mid / lateral, ? pedunculated Fibroid elton- 0.7cm x 1.3cm x 0.6cm ? ENDO:1.5cm in thickness ? RT. OVARY:seen, cyst elton- 2.7cm x 1.9cm x 1.8cm ? LT. OVARY:seen, wnl Interpreted by: Naman Milan MD Signed by: Naman Milan MD 02/10/22 Final result Normal [facility] XR HYSTEROSALPINGOGRAPHY S&I Ordered By: Mary Kendall on 05-23-2021 Normal exam [facility] Work Phone: EXAMINATION: FLUOROSCOPIC HYSTEROSALPINGOGRAM 05/23/2021 3:37 pm [...] cavity without evidence of endometrial filling defect. [employer] Phone: Chi, pn Incoming Radiant Results From [employer] - 05/23/2021 4:03 PM EDT EXAMINATION: FLUOROSCOPIC [...] of endometrial filling defect. IMPRESSION: Normal exam [employer] Phone: [employer] Phone: Trista 03-22-2021 [facility] Telephone (ORQ) LORENA DOUGLASS ([id number]) 1985 F Date Time Provider Department 03/22/21 JASE WAGGONER ORLd During your visit today, we recorded the following information about you: Cammie Guzman 03/22/2021 9:17 AM Signed Patient calling regarding appt 03/25. Patient is coming in for 2nd opinion for her hip and would like to know if she has to have surgery does Dr Kolczun do anterior incision? Patient requesting call at [phone] Please advise. Jase Waggoner II, MD 03/28/2021 11:49 AM Signed called and left message to call me at [phone] Marina Popteresitaemmett TALAVERA Allergies As of Date: 03/22/2021 (Not on File) Date Reviewed: Never Reviewed Reason for Visit: Patient Question [6433] Problem List As Of Date: 03/22/2021 (None) Encounter Status:Closed by JASE WAGGONER II on 03/28/21 Normal [facility] ProgesteroneOrdered By: Zohra Kendall on 02-14-2021 Progesterone 15.63 ng/mL [employer] Work Phone: Comment on above: FEMALE (healthy): Follicular phase 0.06-0.89 Ovulation phase 0.12-12.00 Luteal phase 1.83-23.90 Postmenopausal <0.13 [employer] Phone: Hepatic Function Panelon Albumin [Mass/Vol] 4.9 g/dL 3.5 - 5.2 g/dL [facility] [employer] [place], [place] Albumin/Globulin [Mass ratio] NOT REPORTED [facility] [employer] [place] ALP [Catalytic activity/Vol] 41 U/L 35 - 104 U/L [facility] [employer] [place] ALT [Catalytic activity/Vol] 15 U/L 5 - 33 U/L [facility] [employer] [place] AST [Catalytic activity/Vol] 15 U/L <32 [facility] [employer] [facility] [employer] Bilirubin Ql (U) 0.34 mg/dL 0.3 - 1.2 mg/dL [facility] [employer] [place] Bilirubin, Indirect CANNOT BE CALCULATED 0 - 1 mg/dL [facility] [employer] [place] Bilirubin.direct [Mass/Vol] mg/dL <0.31 mg/dL [facility] [employer] [place] Globulin (S) [Mass/Vol] NOT REPORTED 1.5 - 3.8 g/dL [facility] [employer] [place] Interpretation and review of laboratory results Abnormal [facility] [employer] [place] Protein [Mass/Vol] 8.4 g/dL High 6.4 - 8.3 g/dL [facility] [employer] [place], [place] Liver Profileon 06-12-2019 Albumin [Mass/Vol] 4.9 g/dL Normal 3.5-5.2 [facility] Comment on above: Performed By: #### W BC, LIVP, SED #### [facility] [address] [place] [address] It Application Administrator: Sridhar Ye MD Alkaline Phos 41 U/L Normal 35-104 [facility] Comment on above: Performed By: #### W BC, LIVP, SED #### [facility] [address] [place] [address] It Application Administrator: Sridhar Ye MD ALT [Catalytic activity/Vol] 15 U/L Normal 5-33 [facility] Comment on above: Performed By: #### W BC, LIVP, SED #### [facility] [address] [place], [place] [id number] It Application Administrator: Sridhar Ye MD AST [Catalytic activity/Vol] 15 U/L Normal <32 [facility] Comment on above: Performed By: #### W BC, LIVP, SED #### [facility] [address] [place], [place] [id number] It Application Administrator: Sridhar Ye MD Bilirubin Ql (U) 0.34 mg/dL Normal 0.30-1.20 [facility] Comment on above: Performed By: #### W BC, LIVP, SED #### [facility] [address] [place] [address] It Application Administrator: Sridhar Ye MD Bilirubin, Indirect CANNOT BE CALCULATED Normal 0.00-1 .00 [facility] Comment on above: Performed By: #### W BC, LIVP, SED #### [facility] [address] [place], [place] [address] It Application Administrator: Sridhar Ye MD Bilirubin.direct [Mass/Vol] mg/dL Normal <0.31 [facility] Comment on above: Performed By: #### W BC, LIVP, SED #### [facility] [address] [place] [address] It Application Administrator: Sridhar Ye MD Protein [Mass/Vol] 8.4 g/dL High 6.4-8.3 [facility] Comment on above: Performed By: #### W BC, LIVP, SED #### [facility] [address] [place] [address] It Application Administrator: Sridhar Ye MD Albumin/Globulin [Mass ratio] NOT REPORTED Normal 1.0-2.5 [facility] Comment on above: Performed By: #### W BC, LIVP, SED #### [facility] [address] [place], [place] [id number] It Application Administrator: Sridhar Ye MD Globulin (S) [Mass/Vol] NOT REPORTED Normal 1.5-3.8 [facility] Comment on above: Performed By: #### W BC, LIVP, SED #### [facility] [address] [place], [place] [id number] It Application Administrator: Sridhar Ye MD Sedimentation Rateon 019 Sedimentation Rate 15 mm Normal 0-30 [facility] Comment on above: Performed By: #### W BC, LIVP, SED #### [facility] [address] [place], [place] [id number] It Application Administrator: Sridhar Ye MD Sed Rate 15 mm 0 - 30 mm [place], [place] WBCon 06-12-2019 WBC (Bld) [#/Vol] 11.0 10*3/uL [place], [place] WBC Counton 06-12-2019 WBC (Bld) [#/Vol] 11.0 10*3/uL Normal 3.5-11.0 [facility] Comment on above: Performed By: #### W BC, LIVP, SED #### [facility] [address] [place], [place] [id number] It Application Administrator: Sridhar Ye MD CONSULTATIONon 08-27-2018 CONSULTATION CONSULTATION PAIN MANAGEMENT Consultation Date: 08-27-18 HISTORY OF PRESENT ILLNESS: Today in the office I saw Lorena Douglass. This is a 32 year-old female who is referred to us by Dr. Ruiz, in [place]. The patient has left hip pain. The [...] The surgeon was Dr. Cazares in the [facility]. The patient is a mother of [...] should she wish to explore. cc:Dr. Ruiz [facility] Signed and Approved by: DR DEANNA SEYMOUR 09/05/2018 11:48:00 Normal [facility] Vital Signs Date Time Vital Sign Value Performing Clinician Facility 09-02-2024 08:46-0500 Body mass index (BMI) [Ratio] 26.47 kg/m2 [employer] Work Phone: [facility] 09-02-2024 08:46-0500 Body weight 76.66 kg David [employer]Gov Work Phone: [facility] 09-02-2024 08:46-0500 Diastolic blood pressure 76 mm[Hg] David Dion [employer] Work Phone: [facility] 09-02-2024 08:46-0500 Systolic blood pressure 118 mm[Hg] David Dion DO Work Phone: [facility] 06-19-2024 09:32-0500 Body mass index (BMI) [Ratio] 26.63 kg/m2 David Dion [employer] Work Phone: [facility] 06-19-2024 09:32-0500 Body weight 77.11 kg David Dion DO Work Phone: [facility] 06-19-2024 09:32-0500 Diastolic blood pressure 72 mm[Hg] David Dion DO Work Phone: [facility] 06-19-2024 09:32-0500 Systolic blood pressure 110 mm[Hg] David [employer] Work Phone: [facility] 08-09-2022 15:27-0500 Body height 170.2 cm Oanh Bennett APRN-HARNESS PREPARER Work Phone: [employer] [facility] 08-09-2022 15:27-0500 Body mass index (BMI) [Ratio] 27.72 kg/m2 Oanh Bennett DAIRY POWDER MIXER OPERATOR-HARNESS PREPARER Work Phone: [employer] [facility] 08-09-2022 15:27-0500 Body temperature 97.81 [degF] Oanh Bennett APRN-HARNESS PREPARER Work Phone: [employer] [facility] 08-09-2022 15:27-0500 Body weight 80.29 kg Oanh Bennett APRN-HARNESS PREPARER Work Phone: [facility] 09-01-2021 15:04-0500 Body height 170.2 cm Oanh Bennett APRN-HARNESS PREPARER Work Phone: [employer] [facility] 09-01-2021 15:04-0500 Body mass index (BMI) [Ratio] 26.78 kg/m2 Oanh Bennett APRN-HARNESS PREPARER Work Phone: [employer] [facility] 09-01-2021 15:04-0500 Body temperature 98.4 [degF] Oanh Bennett APRN-HARNESS PREPARER Work Phone: [facility] 09-01-2021 15:04-0500 Body weight 77.56 kg Oanh Bennett APRN-HARNESS PREPARER Work Phone: [facility] Encounters Encounter Date Encounter Type Care Provider Facility Start: 10-16-2024 End: 10-16-2024 Office outpatient visit 15 minutes Oanh Sabrina RAMIREZNCLARIBEL Work Phone: [facility] Comment on above: Left low back pain, unspecified chronicity, unspecified whether sciatica present (Primary Dx); Pain in prosthetic joint, sequela Start: 10-16-2024 ambulatory OANH BENNETT [facility] Start: 10-16-2024 End: 10-16-2024 Subsequent hospital visit by physician Oanh TINOCO Work Phone: [facility] Start: 10-03-2024 End: 10-04-2024 [facility] Result Encounter David Dion DO Work Phone: [facility] Unsolicited Start: 10-03-2024 End: 10-04-2024 [facility] Result Encounter David Dion DO Work Phone: [facility]solic[facility] Start: 09-06-2024 End: 09-07-2024 [facility] Result Encounter David Dion DO Work Phone: [facility]solic[facility] Start: 09-06-2024 End: 09-07-2024 [facility] Result Encounter David Dion DO Work Phone: [facility] Start: 09-02-2024 End: 09-02-2024 Patient encounter procedure David Dion DO Work Phone: [facility] Comment on above: Atypical glandular c ells of undetermined significance (KAYLEN) on cervical Pap smear Start: 09-02-2024 End: 09-02-2024 ambulatory DAVID DION Not Available Start: 08-20-2024 End: 08-20-2024 ambulatory [facility] Start: 08-20-2024 Encounter for gynecological examination (general) (routine) without abnormal findings [facility] Start: 08-20-2024 End: 08-20-2024 Patient encounter procedure Gerard Ruiz MD Work Phone: [facility] Start: 08-20-2024 End: 08-20-2024 Subsequent hospital visit by physician Gerard Ruiz MD Work Phone: [facility] Comment on above: Well woman exam with routine gynecological exam Start: 08-11-2024 End: 08-12-2024 [facility] Result Encounter David Dion DO Work Phone: [facility] Unsolic[facility] Start: 08-11-2024 End: 08-12-2024 [facility] Result Encounter David Dion DO Work Phone: [facility] Unsolic[facility] Start: 07-14-2024 End: 07-15-2024 [facility] Result Encounter David Dion DO Work Phone: [facility] Unsolicited Start: 07-14-2024 End: 07-15-2024 [facility] Result Encounter David Dion DO Work Phone: [facility] Unsolicited Start: 06-19-2024 End: 06-19-2024 Bamboo flowsheet David Dion DO Work Phone: [facility] Start: 06-19-2024 End: 06-19-2024 Bamboo flowsheet David Dion DO Work Phone: [facility] Start: 06-19-2024 End: 06-19-2024 ambulatory DAVID DION Not Available Start: 06-19-2024 End: 06-19-2024 Office outpatient new 20 minutes David Dion DO Work Phone: [facility] Comment on above: Anovulation Start: 09-06-2023 End: 09-06-2023 ambulatory PATRICK A FELTER Not Available Start: 09-06-2023 End: 09-06-2023 Office outpatient new 30 minutes Patrick A Felter DAIRY POWDER MIXER OPERATOR-HARNESS PREPARER Work Phone: [facility] Comment on above: Melanocytic nevus of trunk (Primary Dx); Seborrheic keratosis; Dermatofibroma of right upper extremity Start: 09-06-2023 Bamboo flowsheet Patrick A Fel ter DAIRY POWDER MIXER OPERATOR-HARNESS PREPARER Work Phone: [facility] Start: 09-06-2023 Bamboo flowsheet Patrick A Fel ter DAIRY POWDER MIXER OPERATOR-HARNESS PREPARER Work Phone: [facility] Start: 08-09-2022 End: 08-09-2022 Office outpatient visit 15 minutes Oanh Bennett DAIRY POWDER MIXER OPERATOR-HARNESS PREPARER Work Phone: [facility] Comment on above: Hx of total hip arth roplasty, left (Primary Dx) Start: 08-09-2022 End: 08-09-2022 Subsequent hospital visit by physician Oanh TINOCO Work Phone: [facility] Start: 06-05-2022 End: 06-05-2022 Subsequent hospital visit by physician Gerard Ruiz MD Work Phone: [facility] Laboratory Comment on above: Infertility, female, secondary Start: 02-10-2022 End: 02-10-2022 ambulatory GERARD RUIZ [facility] Start: 02-10-2022 End: 02-10-2022 Subsequent hospital visit by physician Gerard Ruiz MD Work Phone: [facility] Laboratory Comment on above: DUB (dysfunctional u terine bleeding) Start: 01-12-[address] [facility] Start: 09-01-2021 End: 09-01-2021 Postop follow up visit related to original px Oanh TINOCO Work Phone: [facility] Comment on above: Hx of total hip arth roplasty, left (Primary Dx) Start: 09-01-2021 End: 09-01-2021 Subsequent hospital visit by physician Oanh TINOCO Work Phone: [facility] Start: 05-23-2021 End: 05-23-2021 Patient encounter procedure [facility]ard Ruiz MD [facility] Start: 05-23-2021 End: 05-23-2021 Subsequent hospital visit by physician Gerard Ruiz MD Work Phone: [facility] Comment on above: Well woman exam with routine gynecological exam; Screening for HPV (human papillomavirus) Start: 05-23-2021 End: 05-25-2021 Subsequent hospital visit by physician Fanta Galindo Radiologist [facility]iology Comment on above: Infertility, female Start: 02-14-2021 End: 02-14-2021 Subsequent hospital visit by physician Gerard Ruiz MD Work Phone: [facility] Comment on above: Anovulation Start: 06-12-2019 End: 06-13-2019 Patient encounter procedure KRISTEN GREWAL [facility] Start: 06-12-2019 End: 06-12-2019 Subsequent hospital visit by physician Gerard Ruiz [facility] Start: 11-25-2018 Patient encounter procedure DEANNA SEYMOUR Facility:[facility]1 Start: 08-27-2018 End: 08-28-2018 Patient encounter procedure DEANNA SEYMOUR Facility: Procedures Date Procedure Procedure Detail Performing Clinician Start: 10-03-2024 ALL PROGESTERONE David Dion DO Work Phone: Start: 09-06-2024 ALL PROGESTERONE David Dion DO Work Phone: Start: 09-02-2024 Urine test visual color cmprsn meths David Dion DO Work Phone: Start: 09-02-2024 Colposcopy cervix bx cervix & endocrv curretage David Dion DO Work Phone: Start: 08-11-2024 ALL PROGESTERONE Daivd Dion DO Work Phone: Start: 07-14-2024 ALL PROGESTERONE David Dion DO Work Phone: Start: 08-16-2023 Microscopic observation [Identifier] in Cervix by Cyto stain Gerard Ruiz MD Work Phone: Start: 05-30-2022 Microscopic observation [Identifier] in Cervix by Cyto stain Gerard Ruiz MD Work Phone: Start: 02-10-2022 Assay of thyroid stimulating hormone tsh Naman Milan MD Work Phone: Start: 05-23-2021 Hysterosalpingography rs&i Mary Ramirez ol DAIRY POWDER MIXER OPERATOR - CNM Work Phone: Start: 05-23-2021 Microscopic observation [Identifier] in Cervix by Cyto stain Gerard Ruiz MD Work Phone: Start: 02-14-2021 Assay of progesterone Mary Kendall AP RN - CNM Work Phone: Start: 06-12-2019 Blood count leukocyte wbc automated KRISTEN GREWAL Start: 06-12-2019 Hepatic function panel KRISTEN Carrera Start: 06-12-2019 Sedimentation rate rbc automated TYRONE PHER RITAKATHRYN Start: 06-12-2019 Blood count leukocyte wbc automated Browncarleegarrett Grewal Work Phone: Start: 06-12-2019 Hepatic function panel [place] Marlyn peralta Work Phone: Start: 06-12-2019 Sedimentation rate rbc automated Tyrone pher Marlyn Ritakathryn Work Phone: Start: 12-11-2017 Microscopic observation [Identifier] in Cervix by Cyto stain Gerard Ruiz MD Work Phone: Plan of Treatment Date Care Activity Detail Author Start: 08-16-2028 Screening for malign ant neoplasm of cervix [facility] Start: 08-16-2026 Screening for malign ant neoplasm of cervix Pap smear [facility] Start: 06-12-2026 DTaP/Tdap/Td vaccine (2 - Td or Tdap) DTaP/Tdap/Td vaccine (2 - Td or Tdap) [facility] Start: 06-12-2026 DTaP/Tdap/Td vaccine (2 - Td) DTaP/Tdap/Td vaccine (2 - Td) [place] Start: 06-12-2026 Tetanus vaccination TETANUS [facility] Start: 05-23-2026 Screening for malign ant neoplasm of cervix [facility] Start: 08-24-2025 End: 08-24-2025 Patient encounter procedure 08/24/2025 3:40 PM EST Office Visit [facility] [address] [place] [id number] Mary Kendall APRN - MARK [address] [place] [address] yearly [facility] Comment on above: yearly Start: 05-30-2025 Screening for malign ant neoplasm of cervix Pap smear [facility] Start: 03-02-2025 End: 03-02-2025 Patient encounter procedure 03/02/2025 8:30 AM EDT Procedure Visit [facility] [address] [place] [address] David Ashley, DO [address] [place] [address] [facility] Start: 10-20-2024 End: 10-20-2024 Patient encounter procedure 10/20/2024 8:40 AM EDT Office Visit [facility] OB [address] [place] [address] David Ashley, DO [address] [place] [address] [facility] Start: 09-02-2024 End: 09-02-2025 Colposcopy Colposcopy Procedures Routine Atypical glandular cells of undetermined significance (KAYLEN) on cervical Pap smear Expected: 09/02/2024 (Approximate), Expires: 09/02/2025 [facility] Work Phone: Comment on above: Expected: 09/02/2024 (Approximate), Expires: 09/02/2025 Start: 08-16-2024 Depression Screen Depression Screen [facility] Start: 06-19-2024 End: 06-19-2025 Antimullerian hormone (AMH) Antimullerian hormone (AMH) Lab Routine Anovulation Expected: 06/19/2024 (Approximate), Expires: 06/19/2025 [facility] Work Phone: Comment on above: Expected: 06/19/2024 (Approximate), Expires: 06/19/2025 Start: 06-19-2024 End: 06-19-2025 Progesterone Progesterone Lab Routine Anovulation Expected: 06/19/2024 (Approximate), Expires: 06/19/2025 [facility] Comment on above: Expected: 06/19/2024 (Approximate), Expires: 06/19/2025 Start: 05-23-2024 Screening for malign ant neoplasm of cervix Pap smear [facility] Start: 04-06-2024 COVID-19 Vaccine ( season) COVID-19 Vaccine ( season) [facility] Start: 04-06-2024 COVID-19 VACCINE ( season) COVID-19 VACCINE ( season) [facility] Start: 04-06-2024 Influenza vaccination INFLUENZA VACC INE (#1) [facility] Start: 03-06-2024 Influenza vaccination Flu vaccine (# 1) [facility] Start: 05-31-2023 End: 05-31-2023 Patient encounter procedure 05/31/2023 Office Visit Obstetrics and Gynecology Mary Kendall APRN - MARK [address] [place], [place] [id number] [facility] Start: 12-11-2022 Cervical cancer screen Cervical canc er screen [facility] [place] Start: 12-11-2022 Screening for malign ant neoplasm of cervix Cervical cancer screen [facility] [employer] Phone: Start: 05-30-2022 End: 05-30-2022 Patient encounter procedure [facility] Start: 04-06-2022 Influenza vaccination Flu vaccine (# 1) [facility] Start: 03-06-2022 Influenza vaccination Flu vaccine (# 1) [facility] Start: 02-24-2022 End: 02-24-2022 Patient encounter procedure 02/24/2022 Office Visit Obstetrics and Gynecology Naman Milan MD [address] [place] [address] [facility] Start: 01-19-2022 Depression Screen Depression Screen [facility] Start: 11-27-2021 Screening for malign ant neoplasm of cervix [facility] [employer] Phone: Start: 11-09-2021 End: 11-09-2021 Patient encounter procedure 11/09/2021 Office Visit Orthopaedics Alfred Mercado MD [address] [place] [address] [facility] Start: 2021 Diabetes screen Diabetes screen [facility] Start: 10-15-2021 COVID-19 Vaccine (3 - Booster for Pfizer series) COVID-19 Vaccine (3 - Booster for Pfizer series) [facility] Start: 07-28-2021 End: 07-28-2021 Patient encounter procedure 07/28/2021 Office Visit Family Medicine Gerard Ruiz MD [address] [place] [address] [facility] Start: 07-12-2021 COVID-19 Vaccine (3 - Booster for Pfizer series) COVID-19 Vaccine (3 - Booster for Pfizer series) [facility] Start: 05-23-2021 End: 05-23-2021 Patient encounter procedure 05/23/2021 Office Visit Obstetrics and Gynecology Mary Kendall APRN - MARK [address] [address] [facility] Start: 04-06-2021 Influenza vaccination Flu vaccine (# 1) [facility] [employer] Phone: Start: 12-11-2020 Screening for malign ant neoplasm of cervix Pap smear [facility] [employer] Phone: Start: 12-22-2019 End: 12-22-2019 Office Visit 12/22/2019 Office Visit Obstetrics and Gynecology Mary Kendall DAIRY POWDER MIXER OPERATOR - CNM [address] [place] [address] [facility] NP Start: 04-06-2019 Influenza vaccination Flu vaccine (# 1) [facility] [place] Start: 11-08-2007 Screening for malign ant neoplasm of cervix CERVICAL CANCER SCREENING DISCUSSION [facility] Start: 2005 Hepatitis B vaccination HEP B VACCINE (1 of 3 - 19+ 3-dose series) [facility] Start: 2005 Hepatitis B vaccine (1 of 3 - 19+ 3-dose series) Hepatitis B vaccine (1 of 3 - 19+ 3-dose series) [facility] Start: 2005 Third diphtheria, tetanus and acellular pertussis (DTaP) vaccination TDAP (ADULT) [facility] Start: 2004 Hepatitis C screening Hepatitis C sc reen [facility] Start: 2004 Tetanus vaccination TETANUS [facility] Start: 2001 HIV screening HIV SCREENING DISCUSSION [facility] Start: 11-08-1999 Varicella vaccine (1 of 2 - 13+ 2-dose series) Varicella vaccine (1 of 2 - 13+ 2-dose series) [facility] Start: 1998 COVID-19 Vaccine (1) COVID-19 Vaccin e (1) [employer] Phone: Start: 11-08-1991 COVID-19 VACCINE (1) COVID-19 VACCIN E (1) [facility] Start: 11-08-1987 Varicella vaccine (1 of 2 - 2-dose childhood series) Varicella vaccine (1 of 2 - 2-dose childhood series) [facility] Start: 1986 Hepatitis C antibody , confirmatory test HEPATITIS C VIRUS SCREENING [facility] Start: 1986 Hepatitis C screening [facility] End: 05-23-2021 Cytopathology procedure, preparation of smear, genital source PAP SMEAR Lab Routine Well woman exam with routine gynecological exam Screening for HPV (human papillomavirus) 1 Occurrences starting 05/23/2021 until 05/23/2021 [employer] Phone: Comment on above: 1 Occurrences starti ng 05/23/2021 until 05/23/2021 End: 08-20-2024 Cytopathology procedure, preparation of smear, genital source PAP SMEAR Lab Routine Well woman exam with routine gynecological exam 1 Occurrences starting 08/20/2024 until 08/20/2024 [facility] [employer] Comment on above: 1 Occurrences starti ng 08/20/2024 until 08/20/2024 End: 02-10-2022 Follicle Stimulating Hormone BON [employer] Work Phone: Comment on above: 1 Occurrences starti ng 02/10/2022 until 02/10/2022 End: 02-10-2022 Luteinizing Hormone BON [employer] Work Phone: Comment on above: 1 Occurrences starti ng 02/10/2022 until 02/10/2022 End: 06-05-2022 Progesterone BON [employer] Work Phone: Comment on above: 1 Occurrences starti ng 06/05/2022 until 06/05/2022 End: 02-10-2022 Prolactin BON [employer] Work Phone: Comment on above: 1 Occurrences starti ng 02/10/2022 until 02/10/2022 Skeletal X-ray of pelvis and hip XR HIP WITH PELVIS LEFT Imaging Routine Hx of total hip arthroplasty, left 09/01/2021 2:55 PM EST [employer] [facility] XR Pelvis and Hip - left Views XR HIP WITH PELVIS LEFT Imaging Routine Hx of total hip arthroplasty, left 08/09/2022 3:25 PM EST [facility] XR Pelvis and Hip - left Views XR HIP WITH PELVIS LEFT Imaging Routine Pain in prosthetic joint, sequela 10/16/2024 3:22 PM EDT [facility] Immunizations Immunization Date Immunization Notes Care Provider Landon head 06-22-2022 influenza virus vaccine, unspecified formulation Oanh Bennett DAIRY POWDER MIXER OPERATOR[facility] Work Phone: [facility] 06-12-2016 tetanus toxoid, redu aster diphtheria toxoid, and acellular pertussis vaccine, adsorbed [place], [place] 05-11-2016 influenza, injectabl e, quadrivalent, preservative free [place], [place] Payers Date Payer Category Payer Unknown EVA VELASQUEZ O PPO POS [id number] 2022-Present [address] [place] [address] [id number] 2021 Unknown [id number] 2021 Unknown BC[place] P PO [id number] 2021-Present [address] [place] [address] [id number] 2021 Unknown ANTHEM ANTHEM HM O PPO POS [id number] 2021-Present [address] [place] [address] [id number] 2021 Unknown [place] P PO [id number] 2021-Present [address] [place] [address] [id number] 2017 Managed Care (unspecified) [facility] UMR [id number] 2017 Private Health Insurance [id number] 2017 Unknown UMR UMR [id number] 2017-Present [address] [place] [address] [id number] 1986 Unknown [id number] 2.16.840.1.356724.3.579. 2.593 1986 Unknown [id number] 2.16.840.1.453034.3.579. 2.593 1986 Unknown [id number] 2.16.840.1.744459.3.579. 2.174 1986 Unknown [id number] 2.16.840.1.248393.3.579. 2.175 1986 Unknown [id number] 2.16.840.1.786400.3.579. 2.983 1986 Unknown [id number] 2.16.840.1.552562.3.579. 2.173 1986 Unknown [id number] 2.16.840.1.099259.3.579. 2.1259 1986 Unknown [id number] 2.16.840.1.004142.3.579. 2.1259 1986 Unknown [id number] 2.16.840.1.698058.3.579. 2.1259 1986 Unknown [id number] [id number]. 2.983 1986 Unknown [id number]. 2.983 1959 Unknown [id number] Social History Date Type Detail Facility Start: 12-16-2018 End: 08-09-2022 Tobacco smoking status SCIS Never smoker [facility] Start: 12-16-2018 End: 10-16-2024 Alcohol intake No [facility] [employer] Start: 1985 Sex Assigned At Not on file [place], [place] Start: 01-19-2021 End: 08-09-2022 Tobacco use and exposure Never used [employer] Start: 01-19-2021 End: 05-30-2022 Alcohol intake Current non-drinker of alcohol (finding) [employer] Work Phone: Start: 01-19-2021 End: 10-16-2024 Alcohol intake [employer] Start: 01-30-2022 End: 02-09-2022 Exposure to SARS-CoV-2 (event) Not sure [employer] Start: 09-01-2021 End: 10-16-2024 Alcohol intake Current drinker of alcohol (finding) [facility] Start: 04-14-2021 History SDOH Alcohol Comment occasional [facility] Start: 07-28-2021 History SDOH Financial 5 [employer] Work Phone: Start: 07-28-2021 History SDOH Food Worry 1 [employer] Work Phone: Start: 04-10-2023 End: 09-02-2024 Alcohol intake Lifetime non-drinker (finding) [facility] Start: 04-09-2023 Alcohol Comment caffeine: 1-2 cups per day [facility] How hard is it for y ou to pay for the very basics like food, housing, medical care, and heating Not hard at all [employer] (I/We) worried hernan er (my/our) food would run out before (I/we) got money to buy more. Never true [employer] Start: 08-16-2023 Alcohol Comment occ [employer] Start: 03-23-2021 Sex Female (finding) [facility] Medical Equipment Procedure Code Equipment Code Equipment Origin al Text Equipment Identifier Dates Nelson Griptio n Acetabular Shell Sector [id number] Start: 08-09-2021 Nelson Altrx Polyethylene Acetabular Lner [id number]_[facility] Start: 08-09-2021 Femoral Stem Taper Actis Duofix Hip Prosthesis Cementless [id number]_[facility] Start: 08-09-2021 Biolox Delta Cer amic Femoral Head [id number]_[facility] Start: 08-09-2021 Clinical Notes 09-01-2021 to 10-16-2024 Silva Gallardo - 10/16/2024 3:20 PM EARNEST Cordoba - 10/16/2024 3:20 PM Esmer Mane LPN - 09/02/2024 8:30 AM Jewel Lopez DELI CLERK - 06/19/2024 8:50 AM EST Note Date & Type Note Facility 10-16-2024 History of Presen t illness Narrative Ortho Nurse - Established Patient Intake Room#: 4 Date: 10/16/2024 3:24 PM Patient: Lorena Douglass MR#: [id number] : 1985 Age: 38 y.o. L MAX PAIN (08/09/21) Pt stated she started having pain in the fall, denies any falls or injuries. Pt stated she wants her hip looked at, but thinks it is more her back. Pt stated her pain is a 5/10 when it flares up. Referring Physician: Self, Self Insurance: Payor: [facility] / Plan: [facility] UMR / Product Type: *No Product type* / Chief Complaint Patient presents with Left Hip - Follow-up There were no vitals taken for this visit. Pain Recent Labs No results found for: [...] blood clot prevention 70 tablet 0 Aspirin Buf,NoLoks-OiNztz-QyF, 81 MG tablet Take 81 mg by [...] mouth 2 times daily. ergocalciferol 1.25 MG (44374 UT) capsule Take 1 capsule by mouth once a week. hydroCODone-acetaminophen 5-325 MG tablet Take 1-2 tablets by mouth every 6 hours as needed for up to 7 days. Do not take over 4000mg acetaminophen daily. 20 tablet 0 Jublia 10 % Solution topical solution APPLY EXTERNALLY TO THE AFFECTED AREA ONCE A DAY omeprazole [address] capsule Take 1 capsule by mouth daily. (Patient not taking: Reported on 12/08/2021) 30 capsule 0 ondansetron 4 MG tablet Take 1 tablet by mouth every 8 hours as needed for Nausea. (Patient not taking: Reported on 12/08/2021) 6 tablet 0 Vit-Fe Fumarate-FA (PrePLUS) 27-1 MG tablet Take by mouth daily. traMADol 50 MG tablet 1-2 tabs po [...] prevention, Disp: 70 tablet, Rfl: 0 Aspirin Buf,MzOtgy-LrShdm-EpE, 81 MG tablet, Take 81 mg by [...] daily., Disp: , Rfl: ergocalciferol 1.25 MG (89893 UT) capsule, Take 1 capsule by mouth once a week., Disp: , Rfl: hydroCODone-acetaminophen 5-325 MG tablet, Take 1-2 tablets by mouth every 6 hours as needed for up to 7 days. Do not take over 4000mg acetaminophen daily., Disp: 20 tablet, Rfl: 0 Jublia 10 % Solution topical solution, APPLY [...] on 12/08/2021), Disp: 6 tablet, Rfl: 0 Vit-Fe Fumarate-FA (PrePLUS) 27-1 MG tablet, Take by mouth daily. 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 SUBJECTIVE: Lorena is an established patient of [facility]. Here today for followup. She has previous left total hip arthroplasty done by Dr. Mercado in in 2021. She was very active, running and walking miles a day up until the fall of this year when she started developing pain in the left posterior buttock. It radiated down the leg at times, but is largely located just medial to the gluteal cleft. She has not tried any medications as she is still actively hoping to have a second child. PHYSICAL EXAMINATION: GENERAL: She is alert and oriented, and age-appropriate female, in no acute distress. Pleasant and cooperative. EXTREMITIES: Left lower extremity, thigh and calf soft, nontender. Normal neurovascular status. Negative Homans sign. Full and supple range of motion of the hip without pain or impingement. No tenderness laterally overlying the greater trochanter. She has some tenderness to palpation overlying the SI joint on the left side predominantly. She does note some pain radiating down the left leg mostly posteriorly. Skin is otherwise intact. DIAGNOSTIC STUDY INTERPRETATION: AP pelvis left hip series taken today demonstrate stable position and alignment of cementless total hip arthroplasty. It is in unchanged position and alignment when compared to previous imaging. No evidence of periprosthetic implant loosening or migration. No evidence of fracture. ASSESSMENT AND PLAN: 1. Remote left total hip arthroplasty. 2. 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 PLAN: I reviewed my findings with Lorena. We have talked at length today about her symptoms she is experiencing. My recommendation would be to have her follow up with Dr. Saleh to delineate if this is SI or sciatica related. I have offered her a prescription for Medrol Dosepak. She is not interested in that at this time. We will go for medical management to Dr. Saleh. She will notify us if his office should contact her. Call me with any questions or concerns in the meantime. An opportunity would be left open to her. (DOC:[id number]) I have reviewed the findings of the clinical account support manager and agree with their assessment. Oanh Bennett APRN-DANIS Ortho Nurse - Established Patient Intake Room#: 4 Date: 10/16/2024 3:24 PM Patient: Lorena Douglass MR#: [id number] : 1985 Age: 38 y.o. L MAX PAIN (08/09/21) Pt stated she started having pain in the fall, denies any falls or injuries. Pt stated she wants her hip looked at, but thinks it is more her back. Pt stated her pain is a 5/10 when it flares up. Referring Physician: Self, Self Insurance: Payor: [facility] / Plan: [facility] UMR / Product Type: *No Product type* / Chief Complaint Patient presents with Left Hip - Follow-up There were no vitals taken for this visit. Pain Recent Labs No results found for: [...] blood clot prevention 70 tablet 0 Aspirin Buf,MdCdrx-VkJiwj-UmB, 81 MG tablet Take 81 mg by [...] mouth 2 times daily. ergocalciferol 1.25 MG (34590 UT) capsule Take 1 capsule by mouth once a week. hydroCODone-acetaminophen 5-325 MG tablet Take 1-2 tablets by mouth every 6 hours as needed for up to 7 days. Do not take over 4000mg acetaminophen daily. 20 tablet 0 Jublia 10 % Solution topical solution APPLY EXTERNALLY TO THE AFFECTED AREA ONCE A DAY omeprazole [address] capsule Take 1 capsule by mouth daily. (Patient not taking: Reported on 12/08/2021) 30 capsule 0 ondansetron 4 MG tablet Take 1 tablet by mouth every 8 hours as needed for Nausea. (Patient not taking: Reported on 12/08/2021) 6 tablet 0 Vit-Fe Fumarate-FA (PrePLUS) 27-1 MG tablet Take by mouth daily. traMADol 50 MG tablet 1-2 tabs po [...] prevention, Disp: 70 tablet, Rfl: 0 Aspirin Buf,BlFnqc-FbYbgw-HtW, 81 MG tablet, Take 81 mg by [...] daily., Disp: , Rfl: ergocalciferol 1.25 MG (61130 UT) capsule, Take 1 capsule by mouth once a week., Disp: , Rfl: hydroCODone-acetaminophen 5-325 MG tablet, Take 1-2 tablets by mouth every 6 hours as needed for up to 7 days. Do not take over 4000mg acetaminophen daily., Disp: 20 tablet, Rfl: 0 Jublia 10 % Solution topical solution, APPLY [...] on 12/08/2021), Disp: 6 tablet, Rfl: 0 Vit-Fe Fumarate-FA (PrePLUS) 27-1 MG tablet, Take by mouth daily. 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 documented in this encounter [facility] 09-02-2024 History of Presen t illness Narrative [...] nursing note reviewed. Exam conducted with a crop production advisor present. Vitals: Estimated body mass index is [...] Colposcopy Date/Time: 09/02/2024 9:34 AM Performed by: David Ashley DO Authorized by: David Ashley DO Procedure location: cervix and vagina [...] by Cammie Mane LPN on behalf of: David Ashley DO documented in this encounter [facility] 06-19-2024 History of Presen t illness Narrative [...] nursing note reviewed. Exam conducted with a crop production advisor present. Vitals: Estimated body mass index is 26.63 kg/m as calculated from the following: Height as of 04/10/23: 5' 7 . Weight as of this encounter: 170 lb. BP: 110/72 Patient's last menstrual period was 05/30/2024 (approximate). ASSESSMENT & PLAN ICD-10-CM 1. Female infertility N97.9 Patient presents today for 2nd opinion on conceiving. Patient has seen previous MERCHANDISE EXECUTIVE and fertility specialist. Patient has had HSG [...] by Helen Lopez LPN on behalf of: David Ashley DO documented in this encounter [facility] 09-06-2023 History of Presen t illness Narrative [...] Visit: 2 years documented in this encounter [facility] 08-09-2022 History of Presen t illness Narrative Ortho Nurse - Established Patient Intake Room#: 4 Date: 08/09/2022 3:29 PM Patient: Lorena Douglass MR#: [id number] : 1985 Age: 36 y.o. 1yr L MAX Pt stated she is doing really good and denies any pain at this time.0/10 on the pain scale. Referring Physician: Self, Self Insurance: Payor: ANTHEM / Plan: ANTHEM HMO PPO POS / [...] hour before procedure 8 capsule 1 Aspirin Buf,SuHueh-BkBqqr-OzF, 81 MG tablet Take 81 mg by mouth daily. cholecalciferol 50 MCG (2000 UT) capsule Take by mouth 2 times daily. docusate 100 MG capsule Take 1 capsule by mouth 2 times daily. ergocalciferol 1.25 MG (50554 UT) capsule Take 1 capsule by mouth [...] procedure, Disp: 8 capsule, Rfl: 1 Aspirin Buf,JnTjvo-DjGnpw-HgU, 81 MG tablet, Take 81 mg by mouth daily., Disp: , Rfl: cholecalciferol 50 MCG (2000 UT) capsule, Take by mouth 2 times daily., Disp: , Rfl: docusate 100 MG capsule, Take 1 capsule by mouth 2 times daily., Disp: , Rfl: ergocalciferol 1.25 MG (33487 UT) capsule, Take 1 capsule by mouth [...] have discussed her young age. She needs long term care phlebotomist follow up of implant. She has been [...] 08/09/2022 3:29 PM Patient: Lorena Douglass MR#: [id number] : 1985 Age: 36 y.o. 1yr L [...] hour before procedure 8 capsule 1 Aspirin Buf,WuUvox-SmHfyn-IbR, 81 MG tablet Take 81 mg by mouth daily. cholecalciferol 50 MCG (2000 UT) capsule Take by mouth 2 times daily. docusate 100 MG capsule Take 1 capsule by mouth 2 times daily. ergocalciferol 1.25 MG (24544 UT) capsule Take 1 capsule by mouth [...] procedure, Disp: 8 capsule, Rfl: 1 Aspirin Buf,TbNzoc-RhDfqj-AqI, 81 MG tablet, Take 81 mg by mouth daily., Disp: , Rfl: cholecalciferol 50 MCG (2000 UT) capsule, Take by mouth 2 times daily., Disp: , Rfl: docusate 100 MG capsule, Take 1 capsule by mouth 2 times daily., Disp: , Rfl: ergocalciferol 1.25 MG (62701 UT) capsule, Take 1 capsule by mouth [...] [cashew nut oil]. documented in this encounter [facility] 09-01-2021 History of Presen t illness Narrative HPI: Gricelda Douglass is an established patient of [employer]. She is here 3 weeks post direct anterior total hip arthroplasty, She reports she could not be happier with the outcomes of the operation. She reports pain rated 0 on a 10 point scale. She reports they have been compliant with their URMILA hose and medication for DVT prophylaxis and [...] instructed the patient to continue with their URMILA hose and medication for DVT prophylaxis for [...] have reviewed the findings of the clinical account support manager and agree with their assessment. [facility] Nurse Established Patient Intake Room#: 4 Date: 09/01/2021 3:05 PM Patient: Lorena Douglass MR#: [id number] : 1985 Age: 35 y.o. 3wk S/P L MAX Pt stated she is doing good and mild pain 1-2/10 on the pain scale. Pt was wearing her urmila hose and using a walkler at the time of visit. Referring Physician: Oanh Bennett APRN-CNP Insurance: Payor: [employer] / Plan: [facility] PPO POS / Product Type: *No Product [...] Laterality: Left; Surgeon: Alfred Mercado MD; Location: [facility] OR HIP SURGERY Left 2000 Family History: [...] blood clot prevention 70 tablet 0 Aspirin Buf,NqUtno-OcZdgt-VjM, 81 MG tablet Take 81 mg by [...] mouth 2 times daily. ergocalciferol 1.25 MG (77034 UT) capsule Take 50,000 Units by mouth [...] prevention, Disp: 70 tablet, Rfl: 0 Aspirin Buf,JvEgta-BkEdmc-ZyD, 81 MG tablet, Take 81 mg by [...] daily., Disp: , Rfl: ergocalciferol 1.25 MG (61503 UT) capsule, Take 50,000 Units by mouth [...] 09/01/2021 3:05 PM Patient: Lorena Douglass MR#: [id number] : 1985 Age: 35 y.o. 3wk S/P L MAX Pt stated she is doing good and mild pain 1-2/10 on the pain scale. Pt was wearing her urmila hose and using a walkler at the time of visit. Referring Physician: Oanh Bennett APRN-CNP Insurance: Payor: ANTH / Plan: ANTHEM HMO PPO POS / [...] blood clot prevention 70 tablet 0 Aspirin Buf,FoQgrl-TiRbrh-CbE, 81 MG tablet Take 81 mg by [...] mouth 2 times daily. ergocalciferol 1.25 MG (07628 UT) capsule Take 50,000 Units by mouth [...] prevention, Disp: 70 tablet, Rfl: 0 Aspirin Buf,CxDbno-YjCbgi-UlB, 81 MG tablet, Take 81 mg by [...] daily., Disp: , Rfl: ergocalciferol 1.25 MG (65809 UT) capsule, Take 50,000 Units by mouth [...] [cashew nut oil]. documented in this encounter [facility] Evaluation note Diagnosis Anovulation Female infertility associated with anovulation documented in this encounter [employer] Phone: evaluation note* Diagnosis Well woman exam with routine gynecological exam Routine gynecological examination Screening for HPV (human papillomavirus) Special screening examination for human papillomavirus (HPV) documented in this encounter [facility] Phone: evaluation note* Diagnosis Infertility, female Female infertility of unspecified origin documented in this encounter [employer] Phone: evaluation note* Diagnosis Hx of total hip arthroplasty, left- Primary [facility] Diagnosis DUB (dysfunctional uterine bleeding) Other disorder of menstruation and other abnormal bleeding from female genital tract documented in this encounter [facility] [employer] Phone: [id number] note* Diagnosis Infertility, female, secondary Female infertility of unspecified origin documented in this encounter [facility] [employer] Phone: evaluation note* Diagnosis Hx of total hip arthroplasty, left- Primary [facility] Diagnosis Melanocytic nevus of trunk- Primary Benign neoplasm of skin of trunk, except scrotum Seborrheic keratosis Dermatofibroma of right upper extremity [facility] Diagnosis Anovulation Female infertility associated with anovulation [facility] Diagnosis Well woman exam with routine gynecological exam Routine gynecological examination documented in this encounter [facility] [employer] [facility] Diagnosis Atypical glandular cells of undetermined significance (KAYLEN) on cervical Pap smear [facility] Diagnosis Left low back pain, unspecified chronicity, unspecified whether sciatica present- Primary Pain in prosthetic joint, sequela [facility]* Diagnostic X-Ray (Routine) - Pending Review Specialty Diagnoses / Procedures Referred By Zuleyma kasper Referred To Contact Diagnoses Pain in prosthetic joint, sequela Procedures XR HIP WITH PELVIS LEFT Oanh Bennett, RUMA-HARNESS PREPARER [address] [place] [address] Phone: tel: fax: Referral ID Status Reason Start Date Expiration Date V isits Requested Visits Authorized [id number] Pending Review 10/14/2024 11/08/2025 1 1 [facility] Purpose Family History No Family History Records FoundNo Family History Records FoundNo Family History Records FoundNo Family History Records FoundNo Family History Records FoundNo Family History Records FoundNo Family History Records FoundNo Family History Records Found Advance Directives No Advanced Directives Records FoundDocuments on File Type Date Recorded Patient Electrical Prospector Expl anation Advance Directives and Living Will Power of Paint Coating Machine Operator Latest Code Status on File Code Status Date Activated Date Inactivated Comments Full Code 07/10/2016 8:33 PM 07/12/2016 5:11 PM Full Code 07/09/2016 3:18 PM 07/10/2016 8:33 PM Documents on File Type Date Recorded Patient Electrical Prospector Expl anation ACP-Advance Directive ACP-Power of Paint Coating Machine Operator Documents on File Type Date Recorded Patient Electrical Prospector Expl anation ACP-Advance Directive ACP-Power of Paint Coating Machine Operator Latest Code Status on File Code Status Date Activated Date Inactivated Comments Full Code 07/10/2016 8:33 PM 07/12/2016 5:11 PM Full Code 07/09/2016 3:18 PM 07/10/2016 8:33 PM Documents on File Type Date Recorded Patient Electrical Prospector Expl anation Advance Directives/Living Will 08/09/2021 8:00 [...] Comments 07/09/2016 3:18 PM 07/10/2016 8:33 PM Date Activated Date Inactivated Comments 08/09/2021 11:50 AM Reason for Referral Status Reason Specialty Diagnoses / Procedures Re ferred By Contact Referred To Contact Closed Radiology Diagnoses Infertility, female Procedures XR HYSTEROSALPINGOGRAPHY S&I Mary Kendall, DAIRY POWDER MIXER OPERATOR - CNM [address] [place] [address] Specialty Diagnoses / Procedures Referred By Contac t Referred To Contact Diagnoses Hx of total hip arthroplasty, left Procedures XR HIP WITH PELVIS LEFT Oanh Bennett APRN-DANIS [address] [place] [address] Referral ID Status Reason Start Date Expiration Date V isits Requested Visits Authorized [id number] New Request 08/19/2021 09/13/2022 1 1 Referral ID Status Reason Start Date Expiration Date V isits Requested Visits Authorized [id number] Pending Review 08/01/2022 08/26/2023 1 1 Additional Source Comments INFORMATION SOURCE (unrecogn ized section and content) DATE CREATED AUTHOR 09/24/2018 [facility] DATE CREATED AUTHOR AUTHOR'S ORGANIZ ATION 06/13/2019 [facility] DATE CREATED AUTHOR AUTHOR'S ORGANIZ ATION 09/09/2021 [facility] DATE CREATED AUTHOR AUTHOR'S ORGANIZ ATION 05/31/2022 [facility] DATE CREATED AUTHOR AUTHOR'S ORGANIZ ATION 08/09/2022 [facility] DATE CREATED AUTHOR AUTHOR'S ORGANIZ ATION 08/28/2024 [facility] DATE CREATED AUTHOR AUTHOR'S ORGANIZ ATION 09/03/2024 [facility] EP[facility] DATE CREATED AUTHOR AUTHOR'S ORGANIZ ATION 10/19/2024 [facility] Reason for Visit (unrecogniz ed section and content) Status Reason Specialty Diagnoses / Procedures Re ferred By Contact Referred To Contact Closed Radiology Diagnoses Infertility, female Procedures XR HYSTEROSALPINGOGRAPHY S&I Mary Kendall, DAIRY POWDER MIXER OPERATOR - CNM [address] [place] [address] Specialty Diagnoses / Procedures Referred By Zuleyma kasper Referred To Contact Diagnoses Hx of total hip arthroplasty, left Procedures XR HIP WITH PELVIS LEFT Oanh Bennett, DAIRY POWDER MIXER OPERATOR-HARNESS PREPARER [address] [place] [address] Referral ID Status Reason Start Date Expiration Date V isits Requested Visits Authorized [id number] New Request 08/19/2021 09/13/2022 1 1 Reason Comments Post Op Visit Referral ID Status Reason Start Date Expiration Date V isits Requested Visits Authorized [id number] Pending Review 08/01/2022 08/26/2023 1 1 Reason Comments Follow-up Reason Comments Skin Check Reason Comments Infertility Pt present today for a second opinion on infertility. Pt currently sees Mary Kendall. Reason Comments Colposcopy Reason Comments Follow-up Care Teams (unrecognized sec tion and content) Human Resources Compliance Manager Relationship Specialty Start Date End Date Gerard Ruiz MD [address] [place] [address] PCP - General Family Medicine 04/14/21 Human Resources Compliance Manager Relationship Specialty Start Date End Date Gerard Ruiz MD [address] [place] [address] PCP - General Family Medicine 04/14/21 Human Resources Compliance Manager Relationship Specialty Start Date End Date Gerard Ruiz MD [address] [place] [address] PCP - General Family Medicine 04/22/13 Human Resources Compliance Manager Relationship Specialty Start Date End Date Gerard Ruiz MD [address] [place] [address] PCP - General Family Medicine 04/22/13 Human Resources Compliance Manager Relationship Specialty Start Date End Date Gerard Ruiz MD PCP - General Family Medicine 04/14/21 Human Resources Compliance Manager Relationship Specialty Start Date End Date Gerard Ruiz MD PCP - General Family Medicine 04/14/21 Human Resources Compliance Manager Relationship Specialty Start Date End Date Gerard Ruiz MD [address] [place], [place] [id number] PCP - General Family Medicine 04/10/23 Human Resources Compliance Manager Relationship Specialty Start Date End Date Gerard Ruiz MD [address] [place] [id number] PCP - General Family Medicine 04/10/23 Human Resources Compliance Manager Relationship Specialty Start Date End Date Gerard Ruiz MD [address] [place] [address] PCP - General Family Medicine 04/10/23 Human Resources Compliance Manager Relationship Specialty Start Date End Date Gerard Ruiz MD [address] [place] [address] PCP - General Family Medicine 04/10/23 Human Resources Compliance Manager Relationship Specialty Start Date End Date Gerard Ruiz MD [address] [place] [address] PCP - General Family Medicine 04/10/23 Human Resources Compliance Manager Relationship Specialty Start Date End Date Gerard Ruiz MD [address] [place] [address] PCP - General Family Medicine 04/10/23 Human Resources Compliance Manager Relationship Specialty Start Date End Date Gerard Ruiz MD [address] [place] [address] PCP - General Family Medicine 04/22/13 Human Resources Compliance Manager Relationship Specialty Start Date End Date Gerard Ruiz MD [address] [place] [address] PCP - General Family Medicine 04/10/23 Human Resources Compliance Manager Relationship Specialty Start Date End Date Gerard Ruiz MD PCP - General Family Medicine 04/14/21 Human Resources Compliance Manager Relationship Specialty Start Date End Date Gerard Ruiz MD PCP - General Family Medicine 04/14/21 FOR RECORDS PERTAINING TO PATIENTS WHO ARE [...] BE BASED ON THE PRIMARY CLINICAL RECORDS. [facility]. provides no warranty or guarantee of the accuracy or completeness of information in this document.
[2024-11-01 04:11] LABS: Progesterone 13.4 ng/mL (.)
== END 2024-10-30 16:33 | disposition home or self-care (01) ==
LOC: LAB 16:49
PROVIDERS: PCP Family Medicine; Visit Provider Obstetrics & Gynecology
DX: N97.0 Female infertility associated with anovulation (principal)
CPT/HCPCS: 36415; 84144

== ENCOUNTER 2025-03-02 12:20 | Outpatient (REF) | payer OTHER, SELFPAY ==
--- OUTSIDE RECORDS SUMMARY | 2010-09-26 07:16 | XMS_ITS | Encounter Summary ---
Author Organization [facility] Address [address], [address] [place] [address] Care Team Providers Care Er Nurse Name Role Phone Unavailable Primary Care Provider Unavailabl e Encounter Details Date Type Department Care Team (Late st Contact Info) Description 09/26/2010 6:16 AM EST Hospital Encounter [facility] [place] Department [address] [place] [address] Cruz aRhman MD [address] [address] Social History Tobacco Use Types Packs/Day Years Used Date Smoking Tobacco: Never Smokeless Tobacco: Never Alcohol Use Standard Drinks/Week Comments Yes 2 (1 standard drink = 0.6 oz pur e alcohol) occ Overall Financial Resource Strain (CARDIA) Answe r Date Recorded How hard is it for you to pa y for the very basics like food, housing, medical care, and heating? Not hard at all 07/28/2021 PHQ-2 Answer Date Recorded PHQ-9 Total Score 0 08/20/2024 Hunger Vital Sign Answer Date Recorded Within the past 12 months, y ou worried that your food would run out before you got the money to buy more. Never true 07/28/20 21 Within the past 12 months, t he food you bought just didn't last and you didn't have money to get more. Never true 07/28/2021 Comments No Sex and Gender Information Value Date Recorded Sex Assigned at Not on file Legal Sex Female 5:15 PM EST Gender Identity Not on file Sexual Orientation Not on file COVID-19 Exposure Response Date Recorded In the last 10 days, have yo u been in contact with someone who was confirmed or suspected to have Coronavirus/COVID-19? No / Unsure 02/09/2022 5:20 PM EDT documented as of this encounter Plan of Treatment Upcoming Encounters Date Type Department Care Team (Late st Contact Info) Description 08/24/2025 3:40 PM EST Office Visit [facility] OB[facility]YNECOLOGY Part of [address] [place] [id number] Mary Harper APRN - JANET[address] [place] [address] yearly-pap with hpv, colpo with Dr Ashley 10/2024 documented as of this encounter Visit Diagnoses Not on filedocumented in this encounter
--- OUTSIDE RECORDS SUMMARY | 2010-10-01 10:16 | XMS_ITS | Encounter Summary ---
Author Organization [facility] Address [address] [facility] [address], [address] [place] [address] Care Team Providers Care Machine Feeder Raw Stock Name Role Phone Unavailable Primary Care Provider Unavailabl e Encounter Details Date Type Department Care Team (Late st Contact Info) Description 10/01/2010 9:16 AM [email or web address] Hospital Encounter [facility] Department [address] [place] [address] Social History Tobacco Use Types Packs/Day Years [...] Description 08/24/2025 3:40 PM EST Office Visit [facility]OLOGY Part of [address] [place], [place] [id number] Mary Harper APRN - JANETT[address] [place], [place] [id number] yearly-pap with hpv, colpo with Dr Ashley 10/2024 documented as of this encounter Visit Diagnoses Not on filedocumented in this encounter
--- OUTSIDE RECORDS SUMMARY | 2016-07-09 16:05 | XMS_ITS | Encounter Summary ---
Author Organization [facility] Address [address] [facility] [address] [facility], [address] [place] [address] Care Team Providers Care Investor Relations Analyst Name Role Phone Ana Ruiz MD Primary Care Provider [phone] Encounter Details Date Type Department Care Team (Late st Contact Info) Description 07/09/2016 3:05 PM [facility] Hospital Encounter [facility] [address] [place] [id number] Naman Milan MD [address] [place] [address] Social History Tobacco Use Types Packs/Day Years [...] Description 08/24/2025 3:40 PM EST Office Visit [facility] OBSTETRICS & GYNECOLOGY Part of [address] [place] [address] Mary Harper APRN - CN[address] [place] [address] yearly-pap with hpv, colpo with Dr Ashley 10/2024 documented as of this encounter Visit Diagnoses Not on filedocumented in this encounter Care Teams Investor Relations Analyst Relationship Specialty Start Date End Date Ana Ruiz MD [address] [place] [address] PCP - General Family Medicine 04/22/13 documented as of this encounter
--- OUTSIDE RECORDS SUMMARY | 2023-12-25 03:30 | XMS_ITS ---
Author Organization [facility] Address [address] [place] [address] Care Team Providers Care Spar Machine Operator Helper Name Role Phone Katerina Mosley Primary Care Provider ALLERGIES Allergen (clinical drug ingredient) Drug/Non Drug Allergy documented on EMR Reaction Allergy Type Onset Date Status nut allergies except peanuts (uncoded) anaphylaxis Allergy Active RESULTS Component Value Reference Range Notes Comp. Metabolic Panel (14) ( CMP)([id number]) Reviewed date:12/27/2023 02:02:58 PM Interpretation:Abnormal Performing Lab:[facility], [address] [place] [id number], Phone - [phone], Director - Patria Notes/Report: Clinical Information:SRC:Blood CC results to An gaurav [phone] Glucose 83 70-99 mg/dL BUN 9 6-20 mg/dL Creatinine 0.87 0.57-1.00 mg/dL eGFR 88 >59 mL/min/1.73 BUN/Creatinine Ratio 10 9-23 Sodium 142 134-144 mmol/L Potassium 4.5 3.5-5.2 mmol/L Chloride 107 96-106 mmol/L Carbon Dioxide, Total 17 20-29 mmol/L Calcium 9.9 8.7-10.2 mg/dL Protein, Total 7.2 6.0-8.5 g/dL Albumin 4.5 3.9-4.9 g/dL Globulin, Total 2.7 1.5-4.5 g/dL A/G Ratio 1.7 1.2-2.2 Bilirubin, Total 0.3 0.0-1.2 mg/dL Alkaline Phosphatase 44 44-121 IU/L AST (SGOT) 20 0-40 IU/L ALT (SGPT) 16 0-32 IU/L Lipid Panel w/ Chol/HDL Rati o ([id number]) Reviewed date:12/27/2023 02:02:03 PM Interpretation:Abnormal Performing Lab:[facility], [address] [facility], [place], [place] [id number], Phone - [phone], Director - Patria Notes/Report: Clinical Information:SRC:Blood CC results to An gaurav [phone] Cholesterol, Total 195 100-199 mg/dL Triglycerides 53 0-149 mg/dL HDL Cholesterol 74 >39 mg/dL VLDL Cholesterol Trent 10 5-40 mg/dL LDL Chol Calc ([facility]) 111 0-99 mg/dL Comment: T. Chol/HDL Ratio 2.6 0.0-4.4 ratio T. Chol/HDL Ratio Men Women 1/2 Avg.Risk 3.4 3.3 Avg.Risk 5.0 4.4 2X Avg.Risk 9.6 7.1 3X Avg.Risk 23.4 11.0 REASON FOR VISIT HRA,fasting labs MEDICATIONS Medication SIG (Take, Route, Frequency, Duration) Notes Start Date End Date Status Aspir-81 81 MG 1 tablet Orally Once a day *Reorder from Somewhere for eRx and Interaction Alerts* Active Multivitamin Active Glucosamine Chond MSM Formula Active Quercetin Active Vitamin K 100 MCG 1 tablet Orally Once a day Active VITAL SIGNS Heart Rate 80 /min 12/25/2023 Oximetry 99 % 12/25/2023 Blood pressure systolic 100 mm Hg 12/25/19 24 Blood pressure diastolic 68 mm Hg 024 Respiratory Rate 16 /min 12/25/2023 Weight 168 lbs 12/25/2023 Height 67.25 in 12/25/2023 BMI 26.11 12/25/2023 Weight-kg 76.2 kg 12/25/2023 Encounters Encounter Location Date Provider Diagnosis [facility] - [place] [address] [place] [address] 12/25/2023 Katerina Mosley Participant in healt h and wellness plan Z78.9 ; Screening for diabetes mellitus Z13.1 and Screening for cholesterol level Z13.220 ASSESSMENTS Encounter Date Diagnosis Assessment Notes Treatment Notes Treatment Clinical Notes Section Notes 12/25/2023 Participant in health and wellness plan (ICD-10 - Z78.9) pending results would like to be notified of only abnormal results 12/25/2023 Screening for diabetes mellitus (ICD-10 - Z13.1) pending results 12/25/2023 Screening for cholesterol level (ICD-10 - Z13.220) pending results PLAN OF TREATMENT Treatment Notes Assessment Notes Participant in health and wellness plan pending results Screening for diabetes mellitus pending results Screening for cholesterol level pending results Next Appt Details Follow Up: 1 Week, Reason: t est results, f/u Procedure Notes * Category Sub-Category Detail Notes Venipuncture Venipuncture: verbal consent o btained, 23 g butterfly, Location, RT AC Space,Successful, # of Attempts 2, Pt Position, sitting, Standard Precautions Used, Pressure and Clean Bandage Applied, No Redness/Swelling at Site, Pt Tolerated Well Progress Notes * Lorena ESPINOZA LDOB:1985 ([age] yo F)Acc No.[id number]:12/25/2023 Progress Note Patient: GIRISHLorena Toney Provider: Katerina Mosley NP :1985 Age:38 Y Sex:Female Date:12/25/2023 Address:[address] [place] [address] Subjective: * Chief Complaints: * 1. HRA,fasting labs. * HPI: *: Presents as participant in wellness program. No issues or concerns. Has been fasting since 7:30pm last night and been drinking only sips of water. * ROS: General/Constitutional: General Denies:, chills, fatigue, fever. Cardiovascular DENIES: , chest pain or tightness, irregular heartbeat, palpitations. Respiratory DENIES: , cough, shortness of breath, wheezing. * Medical History: pulmonary embolism in 2010 when on OC, Asthma. * Medications: Taking Vitamin K 100 MCG Tablet 1 tablet Orally Once a day , Taking Quercetin , Taking Glucosamine Chond MSM Formula , Taking Multivitamin , Taking Aspir-81 81 MG Tablet Delayed Release 1 tablet Orally Once a day * Allergies: nut allergies except peanuts: anaphylaxis - Allergy. Objective: * Vitals: HR:80, Oxygen sat:99%, BP:100/68mm Hg, RR:16/min, Wt:168lbs, Wt Chg: -7 lbs, Wt Chg %: -4%, Ht:67.25in, BMI:26.11, WC: 31.5 Inch, Wt-k.2 kg. * Examination: General Examination *: GENERAL APPEARANCE: alert and oriented, no acute distress, pleasant, well nourished. HEART: S1/S2 normal, regular rate and rhythm, no murmurs, no rubs, no gallops. LUNGS: clear to auscultation, good air movement, no respiratory distress. SKIN: Warm and dry, good turgor, no rashes, no suspicious lesions. Assessment: * Assessment: 1. Participant in health and wellness plan - Z78.9 (Primary) 2. Screening for diabetes mellitus - Z13.1 3. Screening for cholesterol level - Z13.220 Plan: * Treatment: Value Reference Range Glucose, Serum 83 70-99 - mg/dL * BUN 9 6-20 - mg/dL * Creatinine, Serum 0.87 0.57-1.00 - mg/dL * BUN/Creatinine Ratio 10 9-23 - * Sodium, Serum 142 134-144 - mmol/L * Potassium, Serum 4.5 3.5-5.2 - mmol/L * Chloride, Serum 107 H 96-106 - mmol/L * Carbon Dioxide, Total 17 L 20-29 - mmol/L * Calcium, Serum 9.9 8.7-10.2 - mg/dL * Protein, Total, Serum 7.2 6.0-8.5 - g/dL * Albumin, Serum 4.5 3.9-4.9 - g/dL * Globulin, Total 2.7 1.5-4.5 - g/dL * A/G Ratio 1.7 1.2-2.2 - * Bilirubin, Total 0.3 0.0-1.2 - mg/dL * Alkaline Phosphatase, S 44 44-121 - IU/L * AST (SGOT) 20 0-40 - IU/L * ALT (SGPT) 16 0-32 - IU/L * eGFR 88 >59 - mL/min/1.73 * This lab was reviewed by Katerina Mosley on 12/27/2023 at 14:02 PM MDT ?LAB: Lipid Panel w/ Chol/HDL Ratio ([id number]) (Collection Date & Time - 12/25/2023 07:50 AM)* Value Reference Range Cholesterol, Total 195 100-199 - mg/dL * Triglycerides 53 0-149 - mg/dL * HDL Cholesterol 74 >39 - mg/dL * T. Chol/HDL Ratio 2.6 0.0-4.4 - ratio * VLDL Cholesterol Trent 10 5-40 - mg/dL * LDL Chol Calc ([facility]) 111 H 0-99 - mg/dL * This lab was reviewed by Katerina Mosley on 12/27/2023 at 14:02 PM MDT Notes: pending results? Clinical Notes: would like to be notified of only abnormal results? 2.??Screening for diabetes mellitus?LAB: Comp. Metabolic Panel (14) ([facility])([id number]) (Collection Date & Time - 12/25/2023 07:50 AM)* Value Reference Range Glucose, Serum 83 70-99 - mg/dL * BUN 9 6-20 - mg/dL * Creatinine, Serum 0.87 0.57-1.00 - mg/dL * BUN/Creatinine Ratio 10 9-23 - * Sodium, Serum 142 134-144 - mmol/L * Potassium, Serum 4.5 3.5-5.2 - mmol/L * Chloride, Serum 107 H 96-106 - mmol/L * Carbon Dioxide, Total 17 L 20-29 - mmol/L * Calcium, Serum 9.9 8.7-10.2 - mg/dL * Protein, Total, Serum 7.2 6.0-8.5 - g/dL * Albumin, Serum 4.5 3.9-4.9 - g/dL * Globulin, Total 2.7 1.5-4.5 - g/dL * A/G Ratio 1.7 1.2-2.2 - * Bilirubin, Total 0.3 0.0-1.2 - mg/dL * Alkaline Phosphatase, S 44 44-121 - IU/L * AST (SGOT) 20 0-40 - IU/L * ALT (SGPT) 16 0-32 - IU/L * eGFR 88 >59 - mL/min/1.73 * This lab was reviewed by Katerina Mosley on 12/27/2023 at 14:02 PM MDT ?LAB: Lipid Panel w/ Chol/HDL Ratio ([id number]) (Collection Date & Time - 12/25/2023 07:50 AM)* Value Reference Range Cholesterol, Total 195 100-199 - mg/dL * Triglycerides 53 0-149 - mg/dL * HDL Cholesterol 74 >39 - mg/dL * T. Chol/HDL Ratio 2.6 0.0-4.4 - ratio * VLDL Cholesterol Trent 10 5-40 - mg/dL * LDL Chol Calc ([facility]) 111 H 0-99 - mg/dL * This lab was reviewed by Katerina Mosley on 12/27/2023 at 14:02 PM MDT Notes: pending results?3.??Screening for cholesterol level?LAB: Comp. Metabolic Panel (14) ([facility])([id number]) (Collection Date & Time - 12/25/2023 07:50 AM)* Value Reference Range Glucose, Serum 83 70-99 - mg/dL * BUN 9 6-20 - mg/dL * Creatinine, Serum 0.87 0.57-1.00 - mg/dL * BUN/Creatinine Ratio 10 9-23 - * Sodium, Serum 142 134-144 - mmol/L * Potassium, Serum 4.5 3.5-5.2 - mmol/L * Chloride, Serum 107 H 96-106 - mmol/L * Carbon Dioxide, Total 17 L 20-29 - mmol/L * Calcium, Serum 9.9 8.7-10.2 - mg/dL * Protein, Total, Serum 7.2 6.0-8.5 - g/dL * Albumin, Serum 4.5 3.9-4.9 - g/dL * Globulin, Total 2.7 1.5-4.5 - g/dL * A/G Ratio 1.7 1.2-2.2 - * Bilirubin, Total 0.3 0.0-1.2 - mg/dL * Alkaline Phosphatase, S 44 44-121 - IU/L * AST (SGOT) 20 0-40 - IU/L * ALT (SGPT) 16 0-32 - IU/L * eGFR 88 >59 - mL/min/1.73 * This lab was reviewed by Katerina Mosley on 12/27/2023 at 14:02 PM MDT ?LAB: Lipid Panel w/ Chol/HDL Ratio ([id number]) (Collection Date & Time - 12/25/2023 07:50 AM)* Value Reference Range Cholesterol, Total 195 100-199 - mg/dL * Triglycerides 53 0-149 - mg/dL * HDL Cholesterol 74 >39 - mg/dL * T. Chol/HDL Ratio 2.6 0.0-4.4 - ratio * VLDL Cholesterol Trent 10 5-40 - mg/dL * LDL Chol Calc ([facility]) 111 H 0-99 - mg/dL * This lab was reviewed by Katerina Mosley on 12/27/2023 at 14:02 PM MDT Notes: pending results? * Procedures: Venipuncture: Venipuncture: verbal consent obtained, 23 g butterfly, Location, RT AC Space,Successful, # of Attempts 2, Pt Position, sitting, Standard Precautions Used, Pressure and Clean Bandage Applied, No Redness/Swelling at Site, Pt Tolerated Well. * Procedure Codes: 30972 VENIPUNCT, ROUTINE* * Follow Up: 1 Week (Reason: test results, f/u) * Billing Information: * Visit Code: 83084 Level 3 Est Patient Acute Care. * Procedure Codes: 05818 VENIPUNCT, ROUTINE*. * Sign off status: Completed true * Provider: Katerina Mosley NP Date: 12/25/2023 History and Physical Notes * HPI (History of Present Illness) Category Sub-Category Detail Notes Category Not es * Presents as par ticipant in wellness program. No issues or concerns. Has been fasting since 7:30pm last night and been drinking only sips of water. Examination Category Sub-Category Detail Notes Category Not es General Examination * GENERAL APPEARANCE: alert and oriented, no acute distress, pleasant, well nourished SKIN: Warm and dry, good t urgor, no rashes, no suspicious lesions HEART: S1/S2 normal, regula r rate and rhythm, no murmurs, no rubs, no gallops LUNGS: clear to auscultatio n, good air movement, no respiratory distress
--- OUTSIDE RECORDS SUMMARY | 2024-02-26 10:30 | XMS_ITS ---
Author Organization [facility] [employer] Address [address] [place] [address] Care Team Providers Care Shirt Sewer Name Role Phone Katerina Mosley Primary Care Provider Deisi Mott Unavailable [phone] ALLERGIES Allergen (clinical drug ingredient) Drug/Non Drug Allergy documented on EMR Reaction Allergy Type Onset Date Status nut allergies except peanuts (uncoded) anaphylaxis Allergy Active REASON FOR VISIT Physical MEDICATIONS Medication SIG (Take, Route, Frequency, Duration) Notes Start Date End Date Status Acetaminophen Extra Strength Active CoQ-10 & Fish Oil Ac tive Glucosamine Chond MSM Formula Not-Taking Aspir-81 81 MG 1 tablet Orally Once a day *Reorder from [employer] for eRx and Interaction Alerts* Active Multivitamin Active Quercetin Not-Taking Vitamin K 100 MCG 1 tablet Orally Once a day Not-Taking SOCIAL HISTORY Tobacco Use: Social History Observation Description Date Details (start date - stop date) Never Smoker NA - NA Sex Assigned At : Social History Observation Description Sex Assigned At Unknown Tobacco Use/Smoking Question Answer Notes Are you a nonuser Alcohol Questionnaire Question Answer Notes Did you have a drink contain ing alcohol in the past year? Yes How often did you have a dri nk containing alcohol in the past year? 2 to 4 times a month (2 points) How many drinks did you have on a typical day when you were drinking in the past year? 1 or 2 drinks (0 point) How often did you have 6 or more drinks on one occasion in the past year? Never (0 point) Points 2 Interpretation Negative Tobacco use other than smoking Question Answer Notes Are you an other tobacco user? No VITAL SIGNS Temperature 98 degrees Fahrenheit 02/26/2024 Heart Rate 80 /min 02/26/2024 Oximetry 98 % 02/26/2024 Blood pressure systolic 110 mm Hg 02/26/20 24 Blood pressure diastolic 78 mm Hg 024 Respiratory Rate 16 /min 02/26/2024 Weight 165 lbs 02/26/2024 Height 67.25 in 02/26/2024 BMI 25.65 02/26/2024 Weight-kg 74.84 kg 02/26/2024 Encounters Encounter Location Date Provider Diagnosis [facility] [address] [place] [address] 02/26/2024 Deisi Mott Physical exam Z00.00 ASSESSMENTS Encounter Date Diagnosis Assessment Notes Treatment Notes Treatment Clinical Notes Section Notes 02/26/2024 Physical exam (ICD-10 - Z00.00) encourage healthy weight through good nutrition, hydration, sleep hygeine and at least 30 minutes of exercise daily, encouraged weight bearing exercise, good dental hygeine, use good body mechanics, wear supportive shoes, rest when needed, call with any questions. Forms completed, See scanned documents, pt here approx 45 minutes PLAN OF TREATMENT Treatment Notes Assessment Notes Physical exam encourage healthy we ight through good nutrition, hydration, sleep hygeine and at least 30 minutes of exercise daily, encouraged weight bearing exercise, good dental hygeine, use good body mechanics, wear supportive shoes, rest when needed, call with any questions. Forms completed, See scanned documents, pt here approx 45 minutes Next Appt Details Follow Up: 1 Year & prn, Earline son: call with any questions anytime Progress Notes * ALEXIS Lorena LDOB:1985 ([age] yo F)Acc No.[id number]:02/26/2024 Patient: Lorena DOUGLASS Provider: Deisi Mott NP :1985 Age:38 Y Sex:Female Date:02/26/2024 Address:[address] [place], [place] [id number] Pcp:Katerina Mosley Subjective: * Chief Complaints: * Physical * HPI: *: pt here for a routine physical. She and her are planning on taking in Foster kids and needs a physical for that. 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 Health Maintenance Tables: 30-39 yrs Female Preventive Health Measures Lipid Panel 12/25/2023 ., Glucose 12/25/2023 ., Pap Smear 05/21/2023 ., HPV 05/21/2023 ., Immunizations Yes ., Other .. CQMs: BMI Counseling Diet: Current Challenges large portion sizes,high in carbohydrates, junk food consumption,frequent fast food,frequent dining out, Diet: Healthy Eating Goals decrease portion size,limit fat intake,limit carbohydrate intake,drink water and / or low calorie beverages,limit alcohol intake,limit snacks / junk food,limit fast food / dining out, Diet: How often do you eat 5 or more fruits/vegetable servings a day? ., Diet: How often do you consume sugary food/drinks? ., Exercise: Do you get 150 minutes or more of moderate intensity physical activity or aerobic exercise per week? .. Health Behaviors: Female Health Risk Assessment Contraception / Child Bearing Plans ., Seatbelt use .. Depression Screening: PHQ-2 (2015 Edition) Little interest or pleasure in doing things? Not at all ., Feeling down, depressed, or hopeless? Not at all ., Total Score .. ADOLPH-7 (2018 Edition) Feeling nervous, anxious, or on edge Not at all ., Not being able to stop or control worrying Not at all ., Worrying too much about different things Not at all ., Trouble relaxing Not at all ., Being so restless that it is hard to sit still Not at all ., Becoming easily annoyed or irritable Not at all ., Feeling afraid as if something awful might happen Not at all ., If you checked any problems, how difficult have they made it for you to do your work, take care of things at home, or get along with other people? Not difficult at all ., Total ADOLPH-7 Score ., Interpretation of Total (0 to 4) No Anxiety .. * ROS: General/Constitutional: General Denies:, chills, fatigue, fever. Eyes Denies:, blurred vision. ENT DENIES: , ear(s) pain, hearing decreased, nose congestion/drainage. Cardiovascular DENIES: , chest pain or tightness, irregular heartbeat, palpitations. Respiratory DENIES: , cough, shortness of breath, wheezing. Breast DENIES: , breast lump, breast pain. Gastrointestinal DENIES: , abdominal pain, constipation, diarrhea, nausea, vomiting. Genitourinary DENIES: , dysuria, polyuria. Skin DENIES: , concerning/changing lesions, itching, rash. Musculoskeletal DENIES: , back pain, muscle aches. Peripheral Vascular DENIES: , claudication, varicose veins. Neurologic DENIES: , dizziness, headache, weakness. Psychiatric DENIES:, anxiety, depressed mood, sleep problems, substance abuse, suicidal thoughts. Endocrine DENIES: , cold intolerance, heat intolerance, polydipsia. Hematology DENIES: , bleeding prolonged, bruising easily, glands swollen. 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 Sexual activity currently sexually active, with one man. Last pap smear date 08/2021. Date of Last Period 04/10/23. Migrated GynHistory Last pap smear date: PAP SMEAR NILM;. * OB History: Total living children 1, ages of child 7yo. * Surgical History: Left Hip Pin 08/1999left hip replacement(removed former hip pin of same joint) 08/2021 * Hospitalization/Major Diagno stic Procedure: childbirth * Family History: 1 daughter(s) - healthy. . * Social History: Migrated Social History: Drugs/Alcohol: (Alcohol Screen):Did you have a drink containing alcohol in the past year?: Yes, How often did you have 6 or more drinks on one occasion in the past year?: Never (0 point), How many drinks did you have on a typical day when you were drinking in the past year?: 1 or 2 drinks (0 point), Points: 0, Interpretation: Negative;(Drugs):Have you used drugs other than those for medical reasons in the past 12 months? No;. Tobacco Use: (Tobacco use other than smoking:):Are you an other tobacco user? No;(Tobacco Use/Smoking):Smoking Status: nonsmoker;. Tobacco Use: Tobacco Use/Smoking Are you a nonuser. Tobacco use other than smoking Are you an other tobacco user? No. Habits (drugs/alcohol/caffeine): Alcohol Use alcohol currently Yes, Drinks per week 2. Alcohol Questionnaire Did you have a drink containing alcohol in the past year? Yes, How often did you have a drink containing alcohol in the past year? 2 to 4 times a month (2 points), How many drinks did you have on a typical day when you were drinking in the past year? 1 or 2 drinks (0 point), How often did you have 6 or more drinks on one occasion in the past year? Never (0 point), Points 2, Interpretation Negative. Drugs Have you used drugs other than for medical reasons? No. * Medications: TakingAcetaminophen Extra Strength CoQ-10 & Fish Oil Multivitamin Aspir-81 81 MG Tablet Delayed Release 1 tablet Orally Once a day Taking Acetaminophen Extra Strength Taking CoQ-10 & Fish Oil Taking Multivitamin Taking Aspir-81 81 MG Tablet Delayed Release 1 tablet Orally Once a day Not-TakingVitamin K 100 MCG Tablet 1 tablet Orally Once a day Quercetin Glucosamine Chond MSM Formula Medication List reviewed and reconciled with the patientNot-Taking Vitamin K 100 MCG Tablet 1 tablet Orally Once a day Not-Taking Quercetin Not-Taking Glucosamine Chond MSM Formula Medication List reviewed and reconciled with the patient * Allergies: nut allergies except peanuts: anaphylaxis - Allergyno[Allergies Verified] Objective: * Vitals: Temp:98F, HR:80, Oxygen sat:98%, BP:110/78mm Hg, RR:16/min, Wt:165lbs, Wt Chg: - 3 lbs, Wt Chg %: -1.79%, Ht:67.25in, BMI:25.65, Wt-k.84 kg, Vision: Left eye:20/13, Right eye:20/15, Both eyes:20/13, Comments:Without glasses. * Examination: General Examination *: GENERAL APPEARANCE: alert and oriented, no acute distress, pleasant, well nourished. HEAD: atraumatic, normocephalic. EYES: extraocular movements intact, conjunctiva clear, sclera non-icteric. EARS: auditory canal clear, light reflex present, tympanic membrane intact. SINUSES: non-tender. NOSE: nares patent, no lesions . ORAL CAVITY: no lesions, mucosa moist, normal dentition. THROAT: no erythema, no exudate, pharynx normal, tonsils normal, uvula midline . NECK/THYROID: neck supple, no thyromegaly. LYMPH NODES: no anterior cervical adenopathy. HEART: S1/S2 normal, regular rate and rhythm, no murmurs, no rubs, no gallops. LUNGS: clear to auscultation, good air movement, no respiratory distress. ABDOMEN: soft, non-tender, normal bowel sounds, non-distended. BACK: non-tender, full range of motion. SKIN: Warm and dry, good turgor, no rashes, no suspicious lesions. EXTREMITIES: no edema, capillary refill normal. PERIPHERAL PULSES: 2+ throughout. NEUROLOGIC: alert, cooperative, moving all extremities spontaneously, non-focal. MUSCULOSKELETAL: no swelling or deformity. PSYCH: affect normal, cognitive function intact, mood normal, *SPEECH/LANGUAGE, clear. has a drivers license, does not wear glasses. Assessment: * Assessment: 1. Physical exam - Z00.00 (Primary) Plan: * Treatment: * Procedure Codes: * Follow Up: 1 Year & prn (Reason: call with any questions anytime) * Billing Information: * Visit Code: [id number] Prev visit est age 19 - 40 comprehensive exam. * Procedure Codes: * Sign off status: Completed true * Provider: Deisi Mott NP Date: 02/26/2024 History and Physical Notes * HPI (History of Present Illness) Category Sub-Category Detail Notes Category Not es Depression Screening PHQ-2 (2015 Edition) Little interest or pleasure in doing things?: Not at all . Feeling down, depressed, or hopeless?: N ot at all . Total Score: . ADOLPH-7 (2018 Edition) Feeling nervous, anxious, o r on edge: Not at all . Not being able to stop or control worryi ng: Not at all . Worrying too much about different things : Not at all . Trouble relaxing: Not at all . Being so restless that it is hard to sit still: Not at all . Becoming easily annoyed or irritable: No t at all . Feeling afraid as if something awful mario ht happen: Not at all . If you checked any problems, how difficult have they made it for you to do your work, take care of things at home, or get along with other people?: Not difficult at all . Total ADOLPH-7 Score: . Interpretation of Total: (0 to 4) No Anx iety . * pt here for a r outine physical. She and her are planning on taking in Foster kids and needs a physical for that. 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 CQMs BMI Counseling Diet: Current Ch allenges: large portion sizes,high in carbohydrates, junk food consumption,frequent fast food,frequent dining out Diet: Healthy Eating Goals: decrease portion size,limit fat intake,limit carbohydrate intake,drink water and / or low calorie beverages,limit alcohol intake,limit snacks / junk food,limit fast food / dining out Diet: How often do you eat 5 or more fru its/vegetable servings a day?: . Diet: How often do you consume sugary fo od/drinks?: . Exercise: Do you get 150 min utes or more of moderate intensity physical activity or aerobic exercise per week?: . Health Maintenance Tables 30-39 yrs Fema le Preventive Health Measures Lipid Panel: 12/25/2023 . Glucose: 12/25/2023 . Pap Smear: 05/21/2023 . HPV: 05/21/2023 . Immunizations: Yes . Other: . Health Behaviors Female Health Risk Assessment C ontraception / Child Bearing Plans: . Seatbelt use: . Examination Category Sub-Category Detail Notes Category Not es General Examination * GENERAL APPEARANCE: alert and oriented, no acute distress, pleasant, well nourished has a drivers license, does not wear glasses HEAD: atraumatic, normocep halic EYES: extraocular movement s intact, conjunctiva clear, sclera non-icteric EARS: auditory canal clear , light reflex present, tympanic membrane intact NOSE: nares patent, no les ions ORAL CAVITY: no lesions, mucosa m oist, normal dentition THROAT: no erythema, no exud ate, pharynx normal, tonsils normal, uvula midline NECK/THYROID: neck supple, no thyr omegaly LYMPH NODES: no anterior cervical adenopathy SKIN: Warm and dry, good t urgor, no rashes, no suspicious lesions HEART: S1/S2 normal, regula r rate and rhythm, no murmurs, no rubs, no gallops LUNGS: clear to auscultatio n, good air movement, no respiratory distress ABDOMEN: soft, non-tender, no rmal bowel sounds, non-distended BACK: non-tender, full ran ge of motion MUSCULOSKELETAL: no swelling or defor mity EXTREMITIES: no edema, capillary refill normal PERIPHERAL PULSES: 2+ throughout NEUROLOGIC: alert, cooperative, moving all extremities spontaneously, non-focal PSYCH: affect normal, cogni tive function intact, mood normal, *SPEECH/LANGUAGE, clear SINUSES: non-tender
--- OUTSIDE RECORDS SUMMARY | 2025-03-02 08:30 | XMS_ITS | Encounter Summary ---
Author Organization [facility] Address [address] [place] [address] Care Team Providers Care Pharmacy Technician Name Role Phone Ana Ruiz MD Primary Care Provider [phone] Reason for Visit * Reason Comments repeat pap Encounter Details Date Type Department Care Team (Late st Contact Info) Description 03/02/2025 8:30 AM EDT Procedure Visit [facility] [address] [place] [address] David Ashley DO [address] [place] [id number] Atypical glandular cells on cervical Pap smear Social History Tobacco Use Types Packs/Day Years Used Date Smoking Tobacco: Never Smokeless Tobacco: Never Alcohol Use Standard Drinks/Week Comments Never 0 (1 standard drink = 0.6 oz pur e alcohol) caffeine: 1-2 cups per day Comments No Sex and Gender Information Value Date Recorded Sex Assigned at Not on file Legal Sex Female 6:56 PM EDT Gender Identity Not on file Sexual Orientation Not on file documented as of this encounter Last Filed Vital Signs Vital Sign Reading Time Taken Comments Blood Pressure 112/70 03/02/2025 8:55 AM EDT Pulse - - Temperature - - Respiratory Rate - - Oxygen Saturation - - Inhaled Oxygen Concentration - - Weight 75.8 kg (167 lb 1.9 oz) 03/02/2025 8:55 A M EDT Height - - Body Mass Index 26.17 04/10/2023 4:30 PM EDT documented in this encounter Progress Notes * Helen Lopez, UNDERGROUND MINE MACHINERY MECHANIC - 03/02/2025 8:30 AM EDT Reason for Appointment: Patient ID: Lorena Douglass is a 39 y.o. female who presents for repeat pap Patient presents today for Repeat Pap. MEDICATIONS Current Outpatient Medications Medication Instructions aspirin [...] nursing note reviewed. Exam conducted with a package sealer machine present. Vitals: Estimated body mass index is 26.17 kg/m?? as calculated from the following: Height as of 04/10/23: 5' 7 . Weight as of this encounter: 167 lb 1.9 oz. BP: 112/70 No LMP recorded. ASSESSMENT & PLAN ICD-10-CM 1. Atypical glandular cells on cervical Pap smear R87.619 2. Well woman exam with routine gynecological exam Z01.419 Repeat Pap: Patient presents today for a repeat pap. Previous pap results were reviewed and noted to be Atypical glandular cells. Question regarding previous results were discussed. Repeat Pap was obtained without difficulty. Discussed fertility and patient desires to continue locally for medication. Patient is admirable to trying femara. Patient does have quotes for specialist for IUI if she desires. Patient to return to clinic or schedule TeleHelath for 1 month after Specialist appointment with Dr. Mcdonald. Follow Up: Patient is to return to the office in 6 months for an annual exam. Documented by Helne Lopez LPN on behalf of: David Ashley DO documented in this encounter Plan of Treatment Scheduled Orders Name Type Priority Associated Diagnoses Order Schedule Pap Smear Pathology and Cytology Routine Atypical glandular cells on cervical Pap smear Ordered: 03/02/2025 HPV DNA probe, amplified Microbiology Routine Atypical glandular cells on cervical Pap smear Ordered: 03/02/2025 documented as of this encounter Visit Diagnoses Diagnosis Atypical glandular cells on cervical Pap smear documented in this encounter Care Teams Pharmacy Technician Relationship Specialty Start Date End Date Ana Ruiz MD [address] [place] [address] PCP - General Family Medicine 04/10/23 documented as of this encounter
--- OUTSIDE RECORDS SUMMARY | 2025-03-02 12:25 | XMS_ITS | Encounter Summary ---
Author Organization [facility] Address [address] [place] [address] Care Team Providers Care Pharmaceutical Development Technician Name Role Phone Ana Ruiz MD Primary Care Provider Encounter Details Date Type Department Care Team (Latest Contact Info) Description 03/01/2025 Travel Social History Tobacco Use Types Packs/Day Years [...] on file documented as of this encounter Plan of Treatment Not on file documented as of this encounter Visit Diagnoses Not on filedocumented in this encounter Care Teams Pharmaceutical Development Technician Relationship Specialty Start Date End Date Ana Ruiz MD [address] [place], [place] [id number] PCP - General Family Medicine 04/10/23 documented as of this encounter
--- OUTSIDE RECORDS SUMMARY | 2025-03-02 12:25 | XMS_ITS | Encounter Summary ---
Author Organization [facility] Address [address], [address] [place] [address] Care Team Providers Care Loom Changeover Operator Name Role Phone Ana Ruiz MD Primary Care Provider [phone] Encounter Details Date Type Department Care Team (Late st Contact Info) Description 07/20/2016 FollowUp Telephone Encounter [facility] [address] [place] [address] Krystal King, [place] [address] Social History Tobacco Use Types Packs/Day Years Used Date Smoking Tobacco: Never Smokeless Tobacco: Never Alcohol Use Standard Drinks/Week Comments No 2 (1 standard drink = 0.6 oz pur e alcohol) Comments No Sex and Gender Information Value Date Recorded Sex Assigned at Not on file Legal Sex Female 5:15 PM EST Gender Identity Not on file Sexual Orientation Not on file documented as of this encounter Progress Notes * Krystal King, RN - 07/20/2016 11:12 AM EST Discharge Phone Call Log Patient Name: Lorena Douglass OB Care Provider: No admitting provider for patient encounter. Most Recent Discharge Date: 07/12/16 Disposition of baby: (home) Call made 07/20/2016 11:12 AM [x] No answer [x] Message left documented in this encounter Plan of Treatment Upcoming Encounters Date Type Department Care Team (Late st Contact Info) Description 08/24/2025 3:40 PM EST Office Visit [facility] Part of [address] [place] [phone] Mary Harper APRN - [address] [place] [address] yearly-pap with hpv, colpo with Dr Ashley 10/2024 documented as of this encounter Visit Diagnoses Not on filedocumented in this encounter Care Teams Loom Changeover Operator Relationship Specialty Start Date End Date Ana Ruiz MD [address] [place] [address] PCP - General Family Medicine 04/22/13 documented as of this encounter
--- OUTSIDE RECORDS SUMMARY | 2025-03-02 12:25 | XMS_ITS | Encounter Summary ---
Author Organization [facility] Address [address] [place] [address] Care Team Providers Care Food Stand Manager Name Role Phone Ana Ruiz MD Primary Care Provider [phone] Encounter Details Date Type Department Care Team (Late st Contact Info) Description 03/02/2025 Bamboo flowsheet [facility] [address] [place] [address] David Ashley DO [address] Prado, [facility] Social History Tobacco Use Types Packs/Day Years [...] on filedocumented in this encounter Care Teams Food Stand Manager Relationship Specialty Start Date End Date Ana Ruiz MD [address] [place] [address] PCP - General Family Medicine 04/10/23 documented as of this encounter
--- OUTSIDE RECORDS SUMMARY | 2025-03-02 12:25 | XMS_ITS | Clinical Summary ---
Author Organization [facility] Address [address] [facility], [address] [place] [address] Care Team Providers Care Irrigationist Name Role Phone Ana Ruiz MD Primary Care Provider [phone] Allergies Active Allergy Reactions Criticality Noted Date Comments Cashew Nut Oil Medium 07/12/2021 Tree nuts, scratchy throat Medications docusate sodium (COLACE) 100 MG capsule Take 100 mg by mouth 2 times daily Active calcium carbonate (TUMS) 500 MG chewable tablet Take 1 tablet by mouth as needed Active aspirin 325 MG EC tabletIndications :Hx pulmonary embolism Take 1 tablet by mouth daily 30 tablet 3 7 Active JUBLIA 10 % SOLN APPLY AA ONCE DAILY 2 7 Active aspirin 81 MG tablet Take 1 tablet by mouth daily Active meloxicam (MOBIC) 15 MG tablet 9 Active calcitonin (MIACALCIN) 200 UNIT/ACT nasal spray 9 Active VITAMIN K PO Take by mouth 2 times daily Active calcium carbonate (OSCAL) 500 MG TABS tablet Take 500 mg by mouth daily Active Cholecalciferol (VITAMIN D) 50 MCG (1999) CAPS capsule Take by mouth daily Active Vit-Fe Fumarate-FA ( VITAMIN) 27-1 MG TABS tabletIndications :Well woman exam with routine gynecological exam TAKE ONE TABLET BY MOUTH DAILY 90 tablet 3 2 Active naproxen sodium (ANAPROX) 275 MG tablet Take 1 tablet by mouth 3 times daily (with meals) As needed for heavy menstrual bleeding 60 tablet 3 2 Active Additional Information Patient not taking.Reported on 05/30/2022 Misc Natural Products (GLUCOSAMINE CHOND MSM FORMULA PO) Take by mouth Active Multiple Vitamins-Minerals (MULTIVITAMIN ADULTS PO) Take by mouth Activ e [id number] G21-Upeinas E (COQ-10 & FISH OIL PO) CoQ-10 & Fish Oil Active letrozole (FEMARA) 2.5 MG tablet Take 3 tablets by mouth daily 5 Active metFORMIN (GLUCOPHAGE-XR) 500 MG extended release tablet Take 1 tablet by mouth 4 Active Active Problems Problem Noted Date Diagnosed Date 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 Unilateral primary osteoarthritis, left hip 08/07 Anxiety 01/05/2015 (normal spontaneous vaginal delivery) Resolved Problems Problem Noted Date Diagnosed Date Resolved Date Mild intermittent asthma without complication 07/10/20 16 08/15/2016 Hx pulmonary embolism 201007/10/2016 0 08/15/2016 Post term over 40 weeks 07/10/2016 08/15/2016 state 01/19/2021 Immunizations Immunization Administration Dates Next Due Influenza, FLUARIX, FLULAVAL , FLUZONE (age 6 mo+) and AFLURIA, (age 3 y+), Quadv PF, 0.5mL 05/11/2016 TDaP, ADACEL (age 10y-64y), BOOSTRIX (age 10y+), IM, 0.5mL 06/12/2016 Family History Medical History Relation Name Comments Heart Failure Paternal Grandfather ragini win Relation Name Status Comments Brother Alive Father Alive Maternal Grandfather Alive Maternal Grandmother Alive Mother Alive Paternal Grandfather Alive Paternal Grandmother Alive Sister Alive Social History Tobacco Use Types Packs/Day Years [...] on file Sexual Orientation Not on file Last Filed Vital Signs Vital Sign Reading Time Taken Comments Blood Pressure 110/62 08/20/2024 3:49 PM EST Pulse 90 07/28/2021 10:08 AM EST Temperature 36.6 C (97.9 F) 07/12/2016 3:20 AM EST Respiratory Rate 16 07/12/2016 3:20 AM EST Oxygen Saturation 98% 07/28/2021 10:08 AM EST Inhaled Oxygen Concentration - - Weight 78 kg (172 lb) 08/20/2024 3:49 PM EST Height 170.2 cm (5' 7 ) 08/20/2024 3:49 PM EST Body Mass Index 26.94 08/20/2024 3:49 PM EST Plan of Treatment Upcoming Encounters Date Type Department Care Team (Late st Contact Info) Description 08/24/2025 3:40 PM EST Office Visit [facility] OBSTETRICS & GYNECOLOGY Part of [address] [place] [id number] Mary Harper APRN - [address] [place], [place] [id number] yearly-pap with hpv, colpo with Dr Ashley 10/2024 Health Maintenance Due Date Last Done Comments Varicella vaccine (1 of 2 - 13+ 2-dose series) 11/08/1999 Hepatitis B vaccine (1 of 3 - 19+ 3-dose series) 2005 Diabetes screen 2021 COVID-19 Vaccine ( - 2023- season) 2024 05/17/2021, 04/21/2021 Flu vaccine (#1) 03/06/2025 06/12/2023, , 05/11/2016 Depression Screen 08/20/2025 08/20/2024, 08/20/2024 DTaP/Tdap/Td vaccine (2 - Td or Tdap) 06/12/2026 06/12/2016 Pap smear 08/20/2027 08/20/2024, 08/06, 05/30/2022, Additional history exists Cervical cancer screen 08/20/2029 HPV (without or with Pap) 08/20/20292024, 08/16/2023, 05/30/2022, Additional history exists HIV screen Completed 11/23/2015 Hepatitis C screen Completed 09/18/2023 HPV vaccine Aged Out No longer eligi ble based on patient's age to complete this topic Hepatitis A vaccine Aged Out No longe r eligible based on patient's age to complete this topic Hib vaccine Aged Out No longer eligi ble based on patient's age to complete this topic Meningococcal (ACWY) vaccine Aged Out No longer eligible based on patient's age to complete this topic Meningococcal B vaccine Aged Out No l onger eligible based on patient's age to complete this topic Pneumococcal 0-49 years Vaccine Aged Out No longer eligible based on patient's age to complete this topic Polio vaccine Aged Out No longer elig ible based on patient's age to complete this topic Procedures Procedure Name Priority Date/Time Associated Diagnosis Comments HUMAN PAPILLOMAVIRUS (HPV) DNA PROBE THIN PREP HIGH RISK Routine 08/20/2024 12:00 AM EST FUEL RETROFITTING TECHNICIAN CYTOLOGY Routine 08/20/2024 12:00 AM EST HEPATITIS C AB, RFLX TO QT BY PCR Routine 09/18/2023 12:51 PM EST HIV SCREEN Routine 11/23/2015 5:51 PM EDT 6 weeks gestation of Supervision of normal in first trimester from Last 3 Months or Most Recently Relevant to Health Maintenance Results * Human papillomavirus (HPV) DNA probe thin prep high risk (08/20/2024 12:00 AM EST) Specimen Description CERVICAL MATERIAL 08/20/2024 12:00 AM EST Ranker HPV Sample .THIN PREP 08/20/2024 12:00 AM EST Ranker HPV, Genotype 16 Not Detected Not Detected 08/20/2024 12:00 AM EST [facility] [employer] HPV, Genotype 18 Not Detected Not Detected 08/20/2024 12:00 AM EST [facility] [employer] HPV, High Risk Other Not Detected Not Detected 08/20/2024 12:00 AM EST [facility] [employer] HPV, Interpretation 08/20/2024 12:00 AM [facility] [employer] Comment: This test amplifies and detects DNA of 14 high-risk HPV types associated with cervical cancer and its precursor lesions (HPV types 16,18, 31, 33, 35, 39, 45, 51, 52, 56, 58, 59, 66, and 68). Sensitivity may be affected by specimen collection methods, stage of infection, and the presence of interfering substances. Results should be interpreted in conjunction with other available laboratory and clinical data. A negative high-risk HPV result does not exclude the possibility of future cytologic HSIL or underlying CIN2-3 or cancer. This test is intended for medical purposes only and is not valid for the evaluation of suspected sexual abuse or for other forensic purposes. CERVICAL MATERIAL 08/20/2024 Mary Harper INSPECTOR EYEGLASS FRAMES - CN HEMATOLOGY ORDERABLES Final Result [facility] [address] [place] [address], [facility] [phone] [place] [id number], [facility] [phone] * FUEL RETROFITTING TECHNICIAN Cytology (08/20/2024 12:00 AM EST) Cytology Report Path Number: [id number] DIAGNOSIS Imaged ThinPrep Pap - Cervical (1 monolayer slide): Specimen Adequacy: Satisfactory for evaluation. - Endocervical/tra nsformation zone component present. Descriptive Diagnosis: Atypical glandular cells present (not otherwise specified). Comments: Specimen was screened at [facility], [facility]. [facility] [address] [employer] Screener: PT Electronically Signed Out Sam Lafleur M.D. kimberly/08/26/2024 Procedure/Addend um HPV Procedure Report Date Ordered: 08/26/2024 Status: Signed Out Date Complete: 08/30/2024 By: System Interface Date Reported: 08/30/2024 Sample: HPV Type 16 Result: Not Detected Ref Range: Not Detected Sample: HPV Type 18 Result: Not Detected Ref Range: Not Detected Sample: Other High Risk HPV Result: Not Detected Ref Range: Not Detected Sample: HPV Interp Result: Ref Range: This test amplifies and detects DNA of 14 high-risk HPV types associated with cervical cancer and its precursor lesions (HPV types 16,18, 31, 33, 35, 39, 45, 51, 52, 56, 58, 59, 66, and 68). Sensitivity may be affected by specimen collection methods, stage of infection, and the presence of interfering substances. Results should be interpreted in conjunction with other available laboratory and clinical data. A negative high-risk HPV result does not exclude the possibility of future cytologic HSIL or underlying CIN2-3 or cancer. This test is intended for medical purposes only and is not valid for the evaluation of suspected sexual abuse or for other forensic purposes. Performed at [employer] [address] ([phone] Source of Specimen: A: Imaged ThinPrep Pap - Cervical (1 monolayer slide) HPV Reflex?......... .............HPV if Abnormal Clinical History Colposcopy: 10/15 Z01.419 Routine devil tender exam without abnormal findings LMP: 08/17/24 Processing Lab: [address] [phone] Interpretation performed at [address] [address] This Pap Test has been evaluated with [...] GYNECOLOGIC CYTOLOGY REPORT Patient Name: LORENA DOUGLASS Rec: [id number] [facility] [employer] [facility] ANATOMIC PATHOLOGY [address] [place] [phone] [facility] CERVICAL MATERIAL 08/20/2024 025 9:36 AM EST Mary Harper APRN - CNAlayna PATHOLOGY/CYTOLOGY OR DERABLES Final Result Performing Organization Address [facility]/ZIP Co de Phone Number [facility] [address] [phone] [facility] * Hepatitis C Ab, Rflx to Qt by PCR (09/18/2023 12:51 PM EST) Blood BLOOD SPECIMEN / Unknown Historical Provider CHEMISTRY ORDERABLES Yaneth l Result * HIV Screen (11/23/2015 5:51 PM EDT) HIV Ag/Ab NONREACTIVE NR 11/23/2015 10:14 PM EDT [facility] Comment: No laboratory evidence of HIV infection. If acute HIV infection is suspected, consider testing for HIV-1 RNA. This is an FDA approved immunoassay that detects HIV-1 and HIV-2 antibodies and HIV-1 p24 antigen to screen for infection with HIV-1 or HIV-2. Performed at [facility] [employer] [place], [place] [id number] BLOOD SPECIMEN / Unknown 11/23/2015 5:51 PM EDT 11/23/2015 5:51 PM EDT Mary Harper APRN - MARK IMMUNOLOGY ORDERABLES Final Result Performing Organization Address [facility]/ZIP Co de Phone Number [facility] [address] [place] [address] [facility] from Last 3 Months or Most Recently Relevant to Health Maintenance Insurance [employer] Advance Directives * Full Code (Latest Code Status on File) Date Activated Date Inactivated Comments 07/10/2016 8:33 PM 07/12/2016 5:11 PM * Full Code Date Activated Date Inactivated Comments 07/09/2016 3:18 PM 07/10/2016 8:33 PM Care Teams Irrigationist Relationship Specialty Start Date End Date Ana Ruiz MD [address] [place] [address] PCP - General Family Medicine 04/22/13
--- OUTSIDE RECORDS SUMMARY | 2025-03-02 12:25 | XMS_ITS | Encounter Summary ---
Author Organization [facility] Address [address] [facility], [address] [place] [address] Care Team Providers Care Locomotive Repairer Diesel Name Role Phone Ana Ruiz MD Primary Care Provider [phone] Encounter Details Date Type Department Care Team (Late st Contact Info) Description 07/19/2016 FollowUp Telephone Encounter [facility] Delivery [address] [place] [address] Krystal King, [place] [address] Social History Tobacco Use Types Packs/Day Years [...] of this encounter Progress Notes * Krystal King RN - 07/19/2016 1:43 PM EST Discharge Phone Call Log Patient Name: Lorena Douglass OB Care Provider: No admitting provider for patient encounter. Most Recent Discharge Date: 07/12/16 Disposition of baby: (home) Call made 07/19/2016 1:43 PM [x] No answer [x] Message left [] Spoke with documented in this encounter Plan of Treatment Upcoming Encounters Date Type Department Care Team (Late st Contact Info) Description 08/24/2025 3:40 PM EST Office Visit [facility] OBSTETRICS & GYNECOLOGY Part of [address] [place] [phone] Mary Harper APRN - [address] [place], [place] [phone] yearly-pap with hpv, colpo with Dr Ashley 10/2024 documented as of this encounter Visit Diagnoses Not on filedocumented in this encounter Care Teams Locomotive Repairer Diesel Relationship Specialty Start Date End Date Ana Ruiz MD [address] [place] [address] PCP - General Family Medicine 04/22/13 documented as of this encounter
--- OUTSIDE RECORDS SUMMARY | 2025-03-02 12:25 | XMS_ITS | Encounter Summary ---
Author Organization [facility] Address [address] [place] [address] Care Team Providers Care Automotive Machinist Apprentice Name Role Phone Ana Ruiz MD Primary Care Provider [phone] Encounter Details Date Type Department Care Team (Late st Contact Info) Description 12/24/2024 Abstract [facility] [address] [facility] [place] [address] David Ashley DO [address] [facility] [address] Shiva Prado, [facility]11 Social History Tobacco Use Types Packs/Day Years [...] on filedocumented in this encounter Care Teams Automotive Machinist Apprentice Relationship Specialty Start Date End Date Ana Ruiz MD [address] [place] [address] PCP - General Family Medicine 04/10/23 documented as of this encounter
--- OUTSIDE RECORDS SUMMARY | 2025-03-02 12:25 | XMS_ITS | Encounter Summary ---
Author Organization [facility] Address [address] [facility], [address] [place] [address] Care Team Providers Care Design Release Engineer Name Role Phone Ana Ruiz MD Primary Care Provider [phone] Encounter Details Date Type Department Care Team (Late st Contact Info) Description 08/10/2016 FollowUp Telephone Encounter [facility] Labor [facility] Delivery [address] [place] [address] Krystal King, [place] [address] Social History Tobacco Use Types Packs/Day Years [...] Progress Notes * Krystal King, RN - 08/10/2016 4:25 PM EST TC from Lorena regarding low milk supply when pumping. States that she is not latching infant to breast but only pumping. States that she can only get 3 oz at a time when she pumps. Pumps q 3-4 hours and has increased fluid intake. States that she is taking a natural supplement with fenugreek. Advisedto continue what she is doing and to consult Jane Harper regarding the supplement or any other pharmacological agent to increase milk supply. Patient verbalizes understanding. documented in this encounter Plan of Treatment Upcoming Encounters Date Type Department Care Team (Late st Contact Info) Description 08/24/2025 3:40 PM EST Office Visit [facility] OBSTETRICS & GYNECOLOGY Part of [address] [place] [phone] Mary Harper APRN - [address] [place] [address] yearly-pap with hpv, colpo with Dr Ashley 10/2024 documented as of this encounter Visit Diagnoses Not on filedocumented in this encounter Care Teams Design Release Engineer Relationship Specialty Start Date End Date Ana Ruiz MD [address] [place] [phone] PCP - General Family Medicine 04/22/13 documented as of this encounter
--- OUTSIDE RECORDS SUMMARY | 2025-03-02 12:25 | XMS_ITS | Encounter Summary ---
Author Organization [facility] Address [address] [facility], [address] [place] [address] Care Team Providers Care Recruiting Scheduler Name Role Phone Ana Ruiz MD Primary Care Provider [phone] Reason for Visit * Reason Comments Medication Refill Encounter Details Date Type Department Care Team (Late st Contact Info) Description 09/11/2021 Refill [facility] [address] [place] [address] Dr [address] [place] [phone] Mary Harper APRN - [facility] [address] [place] [address] Medication Refill Social History Tobacco Use Types Packs/Day Years Used Date Smoking Tobacco: Never Smokeless Tobacco: Never Alcohol Use Standard Drinks/Week Comments No 2 (1 standard drink = 0.6 oz pur e alcohol) Overall Financial Resource Strain (CARDIA) Answe r Date Recorded How hard is it for you to pa y for the very basics like food, housing, medical care, and heating? Not hard at all 07/28/2021 PHQ-2 Answer Date Recorded PHQ-9 Total Score 0 01/19/2021 Hunger Vital Sign Answer Date Recorded Within [...] 3:40 PM EST Office Visit [facility] OBSTETRICS & GYNECOLOGY Part of [address] [place], [place] [phone] Mary Harper APRN - [address] [place], [place] [phone] yearly-pap with hpv, colpo with Dr Ashley 10/2024 documented as of this encounter Visit Diagnoses Diagnosis Well woman exam with routine gynecological exam Routine gynecological examination documented in this encounter Care Teams Recruiting Scheduler Relationship Specialty Start Date End Date Ana Ruiz MD [address] [place] [address] PCP - General Family Medicine 04/22/13 documented as of this encounter
--- OUTSIDE RECORDS SUMMARY | 2025-03-02 12:25 | XMS_ITS | Encounter Summary ---
Author Organization [facility] Address [address] [place] [address] Care Team Providers Care Firearms Instructor Name Role Phone Ana Ruiz MD Primary Care Provider [phone] Encounter Details Date Type Department Care Team (Late st Contact Info) Description 02/20/2025 Telephone [facility] [address] [place] [address] [place] [address] Helen Lopez LPN Social History Tobacco Use Types Packs/Day Years [...] on file documented as of this encounter Miscellaneous Notes * Telephone Encounter - Helen Lopez LPN - 02/20/2025 11:46 AM EDT 02/19/25 @ 1054am Patient called and LMOM that she stated her cycle today and would like Femara called into pharmacy. 02/20/25 @ 11:46am medication sent to requested pharmacy. Will reach out to patient after talking with Dr. Ashley on next step with fertility medication as patient has had 4 previous months of Femara,but patient did not ovulate each time. Once nursing talks with provider patient will be notified ofplan of care. --Helen Wilson LPN documented in this encounter Plan of Treatment Not on file documented as of this encounter Visit Diagnoses Diagnosis Anovulation Female infertility associated with anovulation documented in this encounter Care Teams Firearms Instructor Relationship Specialty Start Date End Date Ana Ruiz MD [address] [place] [phone] PCP - General Family Medicine 04/10/23 documented as of this encounter
--- OUTSIDE RECORDS SUMMARY | 2025-03-02 12:25 | XMS_ITS | Clinical Summary ---
Author Organization [facility] Address [address] [place] [address] Care Team Providers Care Junior Designer Name Role Phone Ana Ruiz MD Primary Care Provider [phone] Allergies Active Allergy Reactions Criticality Noted Date Comments Cashew Nut Oil Medium 07/12/2021 Tree nuts, scratchy throat Medications aspirin 81 MG EC tablet 1 (one) time each day at the same time. Active metFORMIN XR (Glucophage-XR) 500 MG 24 hr tabletIndicatio ns:Anovulation Take 1 tablet (500 mg) by mouth in the evening. Take with meals Do not crush, chew, or split. 30 tablet 11 06/19/2024 Active letrozole (Femara) 2.5 MG chemo tabletIndicatio ns:Anovulation Take 3 tablets (7.5 mg total) by mouth Daily for 5 days. 15 tablet 02/20/2025 02/26/20 25 Active Problems Problem Noted Date Diagnosed Date 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 Encounters Date Type Department Care Team Description 03/02/2025 8:30 AM EDT Procedure Visit [facility] [address] [place] [address] David Ashley DO Atypical glandular cells on cervical Pap smear 03/02/2025 Bamboo flowsheet [facility] [address] [facility] [address] David Ashley DO 03/01/2025 Travel 02/20/2025 Telephone [facility] [address] [facility] [place] [address] Helen Lopez, DRILLING CONTRACTOR 01/23/2025 Telephone [facility] [address] [facility] [place] [address] Shelbi Cowan, DRILLING CONTRACTOR 01/19/2025 Abstract [facility] [address] [facility] [place] [phone] David Ashley, DO 12/30/2024 Telephone [facility] [address] [place] [address] [place] [address] Helen Lopez, DRILLING CONTRACTOR 12/26/2024 Refill [facility] [address] [place] [address] [place] [address] David Ashley, DO Anovulation 12/24/2024 Abstract [facility] [address] [place] [address] [place] [address] David Ashley, DO 12/02/2024 Telephone [facility] [address] [place] [address] [place] [address] Helen Lopez, DRILLING CONTRACTOR from Last 3 Months Social History Tobacco Use Types Packs/Day Years Used Date Smoking Tobacco: Never Smokeless Tobacco: Never Tobacco Cessation:Counseling Given: Not Answered Alcohol Use Standard Drinks/Week Comments Never 0 [...] Pressure 112/70 03/02/2025 8:55 AM EDT Pulse 72 04/10/2023 4:30 PM EDT Temperature - - Respiratory Rate - - Oxygen Saturation - - Inhaled Oxygen Concentration - - Weight 75.8 kg (167 lb 1.9 oz) 03/02/2025 8:55 A M EDT Height 170.2 cm (5' 7 ) 04/10/2023 4:30 PM EDT Body Mass Index 26.17 04/10/2023 4:30 PM EDT Plan of Treatment Health Maintenance Due Date Last Done Comments Influenza Vaccine (#1) 2025 3, 06/22/2022, 04/21/2021, Additional history exists Pap Smear 08/20/2027 08/20/2024, 08/20/2024, 08/06 Cervical Cancer Screening 08/20/2029 HPV/Cotest 08/20/2029 08/20/2024, 08/06, 08/16/2023, Additional history exists Insurance [facility] Care Teams Junior Designer Relationship Specialty Start Date End Date Ana Ruiz MD [address] [place], [place] [phone] PCP - General Family Medicine 04/10/23
--- OUTSIDE RECORDS SUMMARY | 2025-03-02 12:25 | XMS_ITS | Encounter Summary ---
Author Organization [facility] Address [address] [place] [address] Care Team Providers Care Vocational Guidance Counselor Name Role Phone Ana Ruiz MD Primary Care Provider [phone] Encounter Details Date Type Department Care Team (Late st Contact Info) Description 01/19/2025 Abstract [facility] [address] [facility] [address] David Ashley DO [address] [facility] [address] Shiva Prado, [facility]11 Social History Tobacco Use Types Packs/Day [...] on filedocumented in this encounter Care Teams Vocational Guidance Counselor Relationship Specialty Start Date End Date Ana Ruiz MD [address] [place] [address] PCP - General Family Medicine 04/10/23 documented as of this encounter
--- OUTSIDE RECORDS SUMMARY | 2025-03-02 12:25 | XMS_ITS | Encounter Summary ---
Author Organization [facility] Address [address] [facility], [address] [place] [address] Care Team Providers Care Gardener Name Role Phone Ana Ruiz MD Primary Care Provider [phone] Encounter Details Date Type Department Care Team (Late st Contact Info) Description 07/20/2016 FollowUp Telephone Encounter [facility] Labor and Delivery [address] [place] [address] Krystal King, [place] [address] Social History Tobacco Use Types Packs/Day Years [...] Notes * Krystal King, RN - 07/20/2016 11:44 AM EST Discharge Phone Call Log Patient Name: Lorena Douglass OB Care Provider: No admitting provider for patient encounter. Most Recent Discharge Date: 07/12/16 Disposition of baby: (home) Call made 07/20/2016 11:45 AM [] No answer [] Message left [x] Spoke with Patient Gustabo, my name is calling from [facility] OB Department. We want to ensure that you are doing well at home - do you mind if I ask you a few questions? No How are you feeling? well Are you having any discomfort? No Are you taking anything for the discomfort? No Do you have any questions about what medication you are taking? No How is your baby doing since you got home? good How is (he/she) eating? well Do you have follow up appointments made for you and baby yet? yes Have you made your baby's two month appointment for vaccines? No If NO, please do so soon, as it can take weeks to get an appointment, and your child will be behind on vaccines. Do you have any further questions regarding caring for yourself or baby since you have been home? Yes Question regarding pumping and increasing milk supply. Advised to increase frequency of pumping. Do you have any questions about your discharge instructions? No During your stay, did any staff talk with you about whether you would have the help you needed whenyou left the hospital? Yes We work to provide the best overall experience possible and hope that you could give us an A+ rating. Was that your experience? Yes Was there anything we could have done to improve your stay?No NOTE If negative comments then: Thank you for your concerns. I apologize. Would you like a follow-up phone call with our manager trade?No *If yes, please print this and give to Krystal. Was there anyone in particular you would like to mention who provided care for you? I would be happy to take their names and comments. Yes Shannon and Peyton - everyone was great. Thank you for your time and for choosing [facility]. documented in this encounter Plan of Treatment Upcoming Encounters Date Type Department Care Team (Late st Contact Info) Description 08/24/2025 3:40 PM EST Office Visit [facility]ST[facility] [place] [address] Mary Harper APRN - CN [address] [facility] [address] [place] [address] yearly-pap with hpv, colpo with Dr Ashley 10/2024 documented as of this encounter Visit Diagnoses Not on filedocumented in this encounter Care Teams Gardener Relationship Specialty Start Date End Date Ana Ruiz MD [address] [place] [address] PCP - General Family Medicine 04/22/13 documented as of this encounter
--- OUTSIDE RECORDS SUMMARY | 2025-03-02 12:26 | XMS_ITS | Encounter Summary ---
Author Organization [facility] Address [address] [place] [address] Care Team Providers Care Industrial Garage Servicer Name Role Phone Ana Ruiz MD Primary Care Provider [phone] Encounter Details Date Type Department Care Team (Late st Contact Info) Description 09/02/2024 Abstract [facility] [address] [place] [address] David Ashley DO [address] [facility] [address] Shiva Prado, [facility]11 Social History Tobacco Use Types Packs/Day Years [...] on filedocumented in this encounter Care Teams Industrial Garage Servicer Relationship Specialty Start Date End Date Ana Ruiz MD [address] [place] [address] PCP - General Family Medicine 04/10/23 documented as of this encounter
--- OUTSIDE RECORDS SUMMARY | 2025-03-02 12:26 | XMS_ITS | Clinical Summary ---
Author Organization [facility] Address [address] [place] [address] Phone Care Team Providers Care Sand Car Worker Name Role Phone Unavailable Primary Care Provider Unavailabl e Social History Tobacco Use Types Packs/Day Years Used Date Smoking Tobacco: Never Assessed Comments Unknown Sex and Gender Information Value Date Recorded Sex Assigned at Not on file Legal Sex Female 9:30 AM EDT Gender Identity Not on file Sexual Orientation Not on file Plan of Treatment Upcoming Encounters Date Type Department Care Team (Late st Contact Info) Description 04/15/2025 9:15 AM EDT Consult [facility] [address] [facility] [address] [place] [address] Adonis Machado MD [address] [facility] [address] [place], [place] [id number] Health Maintenance Due Date Last Done Comments HIV Screening 1986 Lipid Panel 1986 Yearly Adult Physical 1986 MMR Vaccines (1 of 1 - Stand chuck series) 11/08/1987 Varicella Vaccines (1 of 2 - 13+ 2-dose series) 11/08/1999 Hepatitis C Screening 2004 Hepatitis B Vaccines (1 of 3 - 19+ 3-dose series) 2005 Cervical Cancer Screening 11/08/2007 HPV/Cotest 11/08/2007 Pap Smear 11/08/2007 DTaP/Tdap/Td Vaccines (1 - Tdap) 2008 HPV Vaccines (1 - 3-dose sta ndard series) 2013 COVID-19 Vaccine ( - 2023-2 5 season) 2024 Influenza Vaccine (#1) 2025 Zoster Vaccines (1 of 2) 2036 HIB Vaccines Aged Out No longer eligi ble based on patient's age to complete this topic Hepatitis A Vaccines Aged Out No long er eligible based on patient's age to complete this topic IPV Vaccines Aged Out No longer eligi ble based on patient's age to complete this topic Meningococcal Vaccine Aged Out No abhay kendall eligible based on patient's age to complete this topic Pneumococcal Vaccine: Pediat rics and At-Risk Adult Patients Aged Out No longer angie gible based on patient's age to complete this topic Rotavirus Vaccines Aged Out No longer eligible based on patient's age to complete this topic Insurance
--- OUTSIDE RECORDS SUMMARY | 2025-03-02 12:26 | XMS_ITS | Encounter Summary ---
Author Organization [facility] Address [address] [facility], [address] [place] [address] Care Team Providers Care Drainlayer Name Role Phone Ana Ruiz MD Primary Care Provider [phone] Reason for Visit * Reason Comments Medication Refill Encounter Details Date Type Department Care Team (Late st Contact Info) Description 08/11/2015 Refill [facility] [place] [address] [place] [address] Ana Ruiz MD [address] [place] [address] Medication Refill Social History Tobacco Use Types Packs/Day Years Used Date Smoking Tobacco: Never Smokeless Tobacco: Never Alcohol Use Standard Drinks/Week Comments Yes 1.7 (1 standard drink = 0.6 oz p ure alcohol) Comments No Sex and Gender Information Value Date Recorded Sex Assigned at Not on file Legal Sex Female 5:15 PM EST Gender Identity Not on file Sexual Orientation Not on file documented as of this encounter Plan of Treatment Upcoming Encounters Date Type Department Care Team (Late st Contact Info) Description 08/24/2025 3:40 PM EST Office Visit [facility] Part of [address] [place] [address] Mary Harper APRN - MARK [address] [place] [address] [address] [place] [address] yearly-pap with hpv, colpo with Dr Ashley 10/2024 documented as of this encounter Visit Diagnoses Not on filedocumented in this encounter Care Teams Drainlayer Relationship Specialty Start Date End Date Ana Ruiz MD [address] [place] [id number] PCP - General Family Medicine 04/22/13 documented as of this encounter
--- OUTSIDE RECORDS SUMMARY | 2025-03-02 12:26 | XMS_ITS | Encounter Summary ---
Author Organization [facility] Address [address] [facility], [address] [place] [address] Care Team Providers Care Credit Administration Specialist Name Role Phone Ana Ruiz MD Primary Care Provider [phone] Encounter Details Date Type Department Care Team (Late st Contact Info) Description 03/06/2024 Orders Only [facility] OBSTETR[facility] & GYNECOLOGY Part of [address] [place], [place] [id number] Provider, MD Aidan Social History Tobacco Use Types Packs/Day Years [...] Answer Date Recorded PHQ-9 Total Score 0 08/16/2023 Hunger Vital Sign Answer Date Recorded Within [...] Description 08/24/2025 3:40 PM EST Office Visit [facility] OB[facility] & GYNECOLOGY Part of [address] [place], [place] [id number] Mary Harper APRN - [address] [place] [address] yearly-pap with hpv, colpo with Dr Ashley 10/2024 documented as of this encounter Procedures Procedure Name Priority Date/Time Associated Diagnosis Comments BEACON CARRIER SCREEN;14 GENES Routine 09/27/2023 4:36 PM EST ANTI MULLERIAN HORMONE Routine 4:40 PM EST CHLAMYDIA/GC AMPLIFICATION Routine 09/19/2023 4:42 PM EST documented in this encounter Results * [place] Carrier Screen;14 Genes (09/27/2023 4:36 PM EST) Historical Provider CHEMISTRY ORDERABLES Yaneth l Result * Anti Mullerian Hormone (09/20/2023 4:40 PM EST) Blood BLOOD SPECIMEN / Unknown Historical Provider CHEMISTRY ORDERABLES Yaneth l Result * Chlamydia/GC Amplification (09/19/2023 4:42 PM EST) Historical Provider MICROBIOLOGY - GENERAL OR DERABLES Final Result documented in this encounter Visit Diagnoses Not on filedocumented in this encounter Care Teams Credit Administration Specialist Relationship Specialty Start Date End Date Ana Ruiz MD [address] [place] [address] PCP - General Family Medicine 04/22/13 documented as of this encounter
--- OUTSIDE RECORDS SUMMARY | 2025-03-02 12:26 | XMS_ITS | Encounter Summary ---
Author Organization [facility] Address [address] [place] [address] Care Team Providers Care Meat Loiner Name Role Phone Ana Ruiz MD Primary Care Provider [phone] Encounter Details Date Type Department Care Team (Late st Contact Info) Description 05/13/2024 Abstract [facility] [address] [facility] [place] [address] David Ashley DO [address] [facility] [address] Shiva Prado, [facility]11 Social History Tobacco Use Types Packs/Day Years Used Date Smoking Tobacco: Never Smokeless Tobacco: Never Alcohol Use Standard Drinks/Week Comments Never 0 (1 standard drink = 0.6 oz pur e alcohol) caffeine: 1-2 cups per day Comments Unknown Sex and Gender Information Value Date Recorded Sex Assigned at Not on file Legal Sex Female 6:56 PM EDT Gender Identity Not on file Sexual Orientation Not on file documented as of this encounter Plan of Treatment Not on file documented as of this encounter Visit Diagnoses Not on filedocumented in this encounter Care Teams Meat Loiner Relationship Specialty Start Date End Date Ana Ruiz MD [address] [place] [address] PCP - General Family Medicine 04/10/23 documented as of this encounter
--- OUTSIDE RECORDS SUMMARY | 2025-03-02 12:26 | XMS_ITS | Encounter Summary ---
Author Organization [facility] Address [address] [facility], [address] [place] [address] Care Team Providers Care Math Interventionist Name Role Phone Ana Ruiz MD Primary Care Provider [phone] Reason for Visit * Reason Comments Medication Refill Encounter Details Date Type Department Care Team (Late st Contact Info) Description 08/10/[address] [facility] [place] [address] [place] [address] Ana Ruiz MD [address] [place] [address] Medication Refill Social History Tobacco [...] Description 08/24/2025 3:40 PM EST Office Visit [facility] OBSTETRICS & GYNECOLOGY Part of [address] [place] [address] Mary Harper APRN - MARK [address] [place] [address] [address] [place] [address] yearly-pap with hpv, colpo with Dr Ashley 10/2024 documented as of this encounter Visit Diagnoses Not on filedocumented in this encounter Care Teams Math Interventionist Relationship Specialty Start Date End Date Ana Ruiz MD [address] [place] [phone] PCP - General Family Medicine 04/22/13 documented as of this encounter
--- OUTSIDE RECORDS SUMMARY | 2025-03-02 12:26 | XMS_ITS | Patient Health Record ---
Author Organization [facility] Address [address] [place] [address] Care Team Providers Care Player Development Executive Name Role Phone Katerina Mosley Primary Care Provider [phone] ALLERGIES Allergen (clinical drug ingredient) Drug/Non Drug Allergy documented on EMR Reaction Allergy Type Onset Date Status nut allergies except peanuts (uncoded) anaphylaxis Allergy Active REASON FOR REFERRAL No Information MEDICATIONS Medication SIG (Take, Route, Frequency, Duration) Notes Start Date End Date Status Acetaminophen Extra Strength Active CoQ-10 & Fish Oil Ac tive Glucosamine Chond MSM Formula Not-Taking Quercetin Not-Taking Vitamin K 100 MCG 1 tablet Orally Once a day Not-Taking Aspir-81 81 MG 1 tablet Orally Once a day *Reorder from [employer] for eRx and Interaction Alerts* Active Multivitamin Active IMMUNIZATIONS Vaccine Route Administration Date Status Comme nts Adacel Tdap IM Intramuscular 06/15/2017 Administered Afluria Quad 0.5ml Prefilled Syringe age 3 yrs and older IM Intramuscular 06/12/2023 Administered Do Not Use: Afluria .5ml IM Intramuscular 05/30/2019 Admin istered Do Not Use: Afluria .5ml IM Intramuscular 06/22/2020 Admin istered Influenza, unspecified (historical entry) IM Intramuscular 05/18/2017 Administered Influenza, unspecified (historical entry) IM Intramuscular 05/14/2018 Administered SOCIAL HISTORY Tobacco Use: Social History Observation [...] Are you an other tobacco user? No PROBLEMS Problem Type ICD Code Onset Dates Problem Status W/U Status Risk SNOMED Code Notes Problem Arthritis (M19.90) Active confirmed 372 3001 Problem Other chronic pain (G89.29) Active confirmed 84134123 Problem Hyperlipidemia, unspecified hyperlipidemia type (E78.5) Active confirmed 32381395 Problem Rhinitis, unspecifie d type (J31.0) Active confirmed 75838716 Problem Pure hypercholesterolemia (E78.00) Active confirmed 258563937 PLAN OF TREATMENT Pending Test Test Name Order Date VENIPUNCTURE, ROUTINE* 05/25/2017 VENIPUNCTURE, ROUTINE* 07/13/2020 CRYOTHERAPY 06/22/2020 IMMUNIZATION ADMIN, EACH ADDITIONAL ([facility] E VISIT) 06/15/2017 SKIN EXCISION 01/08/2018 Insurance Providers Payer Name Payer Address Payer Phone Subscriber Number Group Number Insured Name Patient Relationship to Insured Coverage Start Date Coverage End Date UMR [address] [address] [place], [place] [id number] Lorena Douglass Self - patient is the insured 1 1 MEDICAL (GENERAL) HISTORY Medical History History ICD Code pulmonary embolism in 2010 when on [facility] Asthma Surgical History Surgery Date(Month/Year) left hip replacement(removed former hip pin of same joint) 08/2021 Left Hip Pin 08/1999 Hospitalization History Reason Date(Month/Year) childbirth
--- OUTSIDE RECORDS SUMMARY | 2025-03-02 12:26 | XMS_ITS | Encounter Summary ---
Author Organization [facility] Address [address] [facility], [address] [place] [address] Care Team Providers Care Automated Process Operator Name Role Phone Ana Ruiz MD Primary Care Provider [phone] Encounter Details Date Type Department Care Team (Late Contact Info) Description 04/21/2021 Abstract [facility] [place] [address] [place] [address] Ana Ruiz MD [address] [place] [address] Social History Tobacco Use Types Packs/Day Years Used Date Smoking Tobacco: Never Smokeless Tobacco: Never Alcohol Use Standard Drinks/Week Comments No 2 (1 standard drink = 0.6 oz pur e alcohol) PHQ-2 Answer Date Recorded PHQ-9 Total Score 0 01/19/2021 Comments No Sex and Gender Information Value Date Recorded Sex Assigned at Not on file Legal Sex Female 5:15 PM EST Gender Identity Not on file Sexual Orientation Not on file documented as of this encounter Plan of Treatment Upcoming Encounters Date Type Department Care Team (Late Contact Info) Description 08/24/2025 3:40 PM EST Office Visit [facility]OLOG[facility] Part of [address] [place] [address] Mary Harper, RUMA - MARK [address] [place] [address] [address] [place], [place] [address] yearly-pap with hpv, colpo with Dr Ashley 10/2024 documented as of this encounter Visit Diagnoses Not on filedocumented in this encounter Care Teams Automated Process Operator Relationship Specialty Start Date End Date Ana Ruiz MD [address] [place] [address] PCP - General Family Medicine 04/22/13 documented as of this encounter
--- OUTSIDE RECORDS SUMMARY | 2025-03-02 12:26 | XMS_ITS | Encounter Summary ---
Author Organization [facility] Address [address] [facility], [address] [place] [address] Care Team Providers Care Child Center Assistant Name Role Phone Ana Ruiz MD Primary Care Provider [phone] Encounter Details Date Type Department Care Team (Late st Contact Info) Description 07/14/2016 FollowUp Telephone Encounter [facility] Labor and Delivery [address] [place] [address] Krystal King, [place] [address] Social History Tobacco Use Types Packs/Day Years [...] Progress Notes * Krystal King RN - 07/14/2016 3:41 PM EST TC from Lorena. States that right breast is engorged and she cannot breastfeed or pump from that side.Talked Lorena through hand expression over the phone. She states that it is working and that her breast is softening. States she will try pumping in a little bit. Will call back if she encounters further problems. documented in this encounter Plan of Treatment Upcoming Encounters Date Type Department Care Team (Late st Contact Info) Description 08/24/2025 3:40 PM EST Office Visit [facility]OLOG[facility] Part of [address] [place] [address] Mary Harper APRN - CNAlayna [address] [place] [address] [address] [place] [address] yearly-pap with hpv, colpo with Dr Ashley 10/2024 documented as of this encounter Visit Diagnoses Not on filedocumented in this encounter Care Teams Child Center Assistant Relationship Specialty Start Date End Date Ana Ruiz MD [address] [place] [address] PCP - General Family Medicine 04/22/13 documented as of this encounter
--- OUTSIDE RECORDS SUMMARY | 2025-03-02 12:26 | XMS_ITS | Encounter Summary ---
Author Organization [facility] Address [address] [facility], [address] [place] [address] Care Team Providers Care Aerobics Teacher Name Role Phone Ana Ruiz MD Primary Care Provider [phone] Reason for Visit * Reason Comments Other Encounter Details Date Type Department Care Team (Late Contact Info) Description 12/15/2014 Refill [facility] [place] [address] [place] [address] Ana Ruiz MD [address] [place] [address] Other Social History Tobacco Use Types Packs/Day Years [...] 08/24/2025 3:40 PM EST Office Visit [facility] & [facility]YNECOLOGY Part of [address] [place] [address] Mary Harper APRN - MARK [address] [place] [address] [address] [place] [address] yearly-pap with hpv, colpo with Dr Ashley 10/2024 documented as of this encounter Visit Diagnoses Not on filedocumented in this encounter Care Teams Aerobics Teacher Relationship Specialty Start Date End Date Ana Ruiz MD [address] [place] [address] PCP - General Family Medicine 04/22/13 documented as of this encounter
--- OUTSIDE RECORDS SUMMARY | 2025-03-02 12:26 | XMS_ITS | Encounter Summary ---
Author Organization [facility] Address [address] [place] [address] Care Team Providers Care Solar/Renewable Energy Sales Name Role Phone Ana Ruiz MD Primary Care Provider [phone] Encounter Details Date Type Department Care Team (Late st Contact Info) Description 04/09/2023 Abstract [facility] [address] [place] [address] Valdez Calloway, DPM [address] [place] [address] Social History Tobacco Use Types Packs/Day Years Used Date Smoking Tobacco: Never Tobacco Cessation:Counseling Given: Not Answered [...] on filedocumented in this encounter Care Teams Solar/Renewable Energy Sales Relationship Specialty Start Date End Date Ana Riuz MD [address] [place] [address] PCP - General Family Medicine 04/10/23 documented as of this encounter
--- OUTSIDE RECORDS SUMMARY | 2025-03-02 12:26 | XMS_ITS | Data Portability ---
Author Organization [place] - [facility], [place] Bravo Address [address] [place] [address] Assessment No assessment recorded. Plan of Treatment Reminders Order Date Submit Date Provider Last Modified By Organization Details Last Modified Time Details Appointments None recorded. Lab venipunctur e 2024 025 tashia lechuga [facility], [address] [place], [address], 5 08:18:00 ferritin, serum or plasma 2024 025 CORTEZ [facility], [address] [place], [address], 5 08:34:14 iron + total iron-bindin g capacity (TIBC), serum 2024 025 [place] [facility], [address] [place], [address], 5 08:34:11 cobalamin and folate panel, serum 2024 025 CORTEZ [facility]), [address] [place], [address], 5 08:34:12 vitamin D, 25-hydroxy, total, serum 2024 025 CORTEZ [facility], [address] [place], [address], 5 08:34:14 CBC w/ auto diff 2024 025 CORTEZ [facility]), [address] [place], [address], 5 08:34:09 CMP, serum or plasma 2024 025 CORTEZ [facility] [address] [place], [address], 5 08:34:10 lipid panel, serum 2024 025 CORTEZ [facility] [address] [place], [address], 5 08:34:10 TSH + free T4, serum 2024 025 [email or web address] lechuga [facility] [address] [place], [address], 5 11:10:11 Referral None recorded. Procedures None recorded. Surgeries None recorded. Imaging None recorded. Medication Orders None recorded. Patient TargetsNo targets recorded. Patient InstructionsNo instructions recorded. Reason for Referral None Reported. Results Created Date Observation Date Name Description Value Unit Range Abnormal Flag Note LastModifiedBy Organization Detail LastModifiedTime 12/24/19 25 12/24/2024 CBC WITH DIFFE RENTI AL/PL ATELE T WBC 9.7 x10e3 /uL 3.4-10 .8 normal Not Available [facility] ([facility]) [address] [place], [address], 12/24/2024 08:34:09 12/24/19 25 12/24/2024 CBC WITH DIFFE RENTI AL/PL ATELE T RBC 4.68 x10e6 /uL 3.77-5 .28 normal Not Available [facility] ([facility]) [address] [place], [address], 12/24/2024 08:34:09 12/24/19 25 12/24/2024 CBC WITH DIFFE RENTI AL/PL ATELE T hemoglobin 13.5 g/dL 11.1-1 5.9 normal Not Available [facility] ([facility]) [address] [place], [address], 12/24/2024 08:34:09 12/24/19 25 12/24/2024 CBC WITH DIFFE RENTI AL/PL ATELE T hematocrit 42.8 % 34.0-4 6.6 normal Not Available [facility] ([facility]) [address] [place], [address], 12/24/2024 08:34:09 12/24/19 25 12/24/2024 CBC WITH DIFFE RENTI AL/PL ATELE T MCV 92 fL 79-97 normal Not Available [facility] ([facility]) [address] [place], [address], 12/24/2024 08:34:09 12/24/19 25 12/24/2024 CBC WITH DIFFE RENTI AL/PL ATELE T MCH 28.8 pg 26.6-3 3.0 normal Not Available [facility] ([facility]) [address] [place], [address], 12/24/2024 08:34:09 12/24/19 25 12/24/2024 CBC WITH DIFFE RENTI AL/PL ATELE T MCHC 31.5 g/dL 31.5-3 5.7 normal Not Available [facility] ([facility]) [address] [place], [address], 12/24/2024 08:34:09 12/24/19 25 12/24/2024 CBC WITH DIFFE RENTI AL/PL ATELE T RDW 13.2 % 11.7-1 5.4 Not Available [facility] ([facility]) [address] [place], [address], 12/24/2024 08:34:09 12/24/19 25 12/24/2024 CBC WITH DIFFE RENTI AL/PL ATELE T platelets 268 x10e3 /uL 150-45 0 normal Not Available [facility] ([facility]) [address] [facility], [place], [address], 12/24/2024 08:34:09 12/24/19 25 12/24/2024 CBC WITH DIFFE RENTI AL/PL ATELE T neutrophils 61 % not estab. normal Not Available [facility] ([facility]) [address] [facility], [place], [address], 12/24/2024 08:34:09 12/24/19 25 12/24/2024 CBC WITH DIFFE RENTI AL/PL ATELE T lymphs 27 % not estab. normal Not Available [facility] ([facility]) [address] [facility], [place], [address], 12/24/2024 08:34:09 12/24/19 25 12/24/2024 CBC WITH DIFFE RENTI AL/PL ATELE T monocytes 5 % not estab. normal Not Available [facility] ([facility]) [address] [facility], [place], [address], 12/24/2024 08:34:09 12/24/19 25 12/24/2024 CBC WITH DIFFE RENTI AL/PL ATELE T eos 6 % not estab. normal Not Available [facility] ([facility]) [address] [place], [address], 12/24/2024 08:34:09 12/24/19 25 12/24/2024 CBC WITH DIFFE RENTI AL/PL ATELE T basos 1 % not estab. normal Not Available [facility] ([facility]) [address] [place], [address], 12/24/2024 08:34:09 12/24/19 25 12/24/2024 CBC WITH DIFFE RENTI AL/PL ATELE T immature cells RHINOLOGIST Not Available [facility] ([facility]) [address] [place], [address], 12/24/2024 08:34:09 12/24/19 25 12/24/2024 CBC WITH DIFFE RENTI AL/PL ATELE T neutrophils (absolute) 6.0 x10e3 /uL 1.4-7. 0 normal Not Available [facility] ([facility]) [address] [place], [address], 12/24/2024 08:34:09 12/24/19 25 12/24/2024 CBC WITH DIFFE RENTI AL/PL ATELE T lymphs (absolute) 2.6 x10e3 /uL 0.7-3. 1 normal Not Available [facility] ([facility]) [address] [place], [address], 12/24/2024 08:34:09 12/24/19 25 12/24/2024 CBC WITH DIFFE RENTI AL/PL ATELE T monocytes(ab solute) 0.5 x10e3 /uL 0.1-0. 9 normal Not Available [facility] ([facility]) [address] [place], [address], 12/24/2024 08:34:09 12/24/19 25 12/24/2024 CBC WITH DIFFE RENTI AL/PL ATELE T eos (absolute) 0.6 x10e3 /uL 0.0-0. 4 above high normal Not Available [facility] ([facility]) [address] [place], [address], 12/24/2024 08:34:09 12/24/19 25 12/24/2024 CBC WITH DIFFE RENTI AL/PL ATELE T baso (absolute) 0.1 x10e3 /uL 0.0-0. 2 normal Not Available [facility] ([facility]) [address] [place], [address], 12/24/2024 08:34:09 12/24/19 25 12/24/2024 CBC WITH DIFFE RENTI AL/PL ATELE T immature granulocytes 0 % not estab. Not Available [facility] ([facility]) [address] [facility], [place], [address], 12/24/2024 08:34:09 12/24/19 25 12/24/2024 CBC WITH DIFFE RENTI AL/PL ATELE T immature grans (abs) 0.0 x10e3 /uL 0.0-0. 1 Not Available [facility] ([facility]) [address] [facility], [place], [address], 12/24/2024 08:34:09 12/24/19 25 12/24/2024 CBC WITH DIFFE RENTI AL/PL ATELE T NRBC RHINOLOGIST Not Available [facility] ([facility]) [address] [facility], [place], [address], 12/24/2024 08:34:09 12/24/19 25 12/24/2024 CBC WITH DIFFE RENTI AL/PL ATELE T hematology comments: RHINOLOGIST Not Available [facility] ([facility]) [address] [facility], [place], [address], 12/24/2024 08:34:09 12/24/19 25 12/24/2024 COMP. METAB OLIC PANEL (14) glucose 88 mg/dL 70-99 normal Not Available [facility] ([facility]) [address] [place], [address], 12/24/2024 08:34:10 12/24/19 25 12/24/2024 COMP. METAB OLIC PANEL (14) BUN 9 mg/dL 6-20 normal Not Available [facility] ([facility]) [address] [place], [address], 12/24/2024 08:34:10 12/24/19 25 12/24/2024 COMP. METAB OLIC PANEL (14) creatinine 0.69 mg/dL 0.57-1 .00 normal Not Available [facility] ([facility]) [address] [place], [address], 12/24/2024 08:34:10 12/24/19 25 12/24/2024 COMP. METAB OLIC PANEL (14) eGFR 114 mL/mi n/1.7 3 >59 normal Not Available [facility] ([facility]) [address] [place], [address], 12/24/2024 08:34:10 12/24/19 25 12/24/2024 COMP. METAB OLIC PANEL (14) BUN/creatini ne ratio 13 9-23 normal Not Available [facility] ([facility]) [address] [facility] [place], [address], 12/24/2024 08:34:10 12/24/19 25 12/24/2024 COMP. METAB OLIC PANEL (14) sodium 140 mmol/ L 134-14 4 normal Not Available [facility] ([facility]) [address] [facility] [place], [address], 12/24/2024 08:34:10 12/24/19 25 12/24/2024 COMP. METAB OLIC PANEL (14) potassium 4.5 mmol/ L 3.5-5. 2 normal Not Available [facility] ([facility]) [address] [facility] [place], [address], 12/24/2024 08:34:10 12/24/19 25 12/24/2024 COMP. METAB OLIC PANEL (14) chloride 104 mmol/ L 96-106 normal Not Available [facility] ([facility]) [address] [facility] [place], [address], 12/24/2024 08:34:10 12/24/19 25 12/24/2024 COMP. METAB OLIC PANEL (14) carbon dioxide, total 19 mmol/ L 20-29 below low normal Not Available [facility] ([facility]) [address] [facility] [place], [address], 12/24/2024 08:34:10 12/24/19 25 12/24/2024 COMP. METAB OLIC PANEL (14) calcium 9.8 mg/dL 8.7-10 .2 normal Not Available [facility] ([facility]) [address] [facility] [place], [address], 12/24/2024 08:34:10 12/24/19 25 12/24/2024 COMP. METAB OLIC PANEL (14) protein, total 7.5 g/dL 6.0-8. 5 normal Not Available [facility] ([facility]) [address] [facility] [place], [address], 12/24/2024 08:34:10 12/24/19 25 12/24/2024 COMP. METAB OLIC PANEL (14) albumin 4.8 g/dL 3.9-4. 9 normal Not Available [facility] ([facility]) [address] [facility] [place], [address], 12/24/2024 08:34:10 12/24/19 25 12/24/2024 COMP. METAB OLIC PANEL (14) globulin, total 2.7 g/dL 1.5-4. 5 Not Available [facility] ([facility]) [address] [facility] [place], [address], 12/24/2024 08:34:10 12/24/19 25 12/24/2024 COMP. METAB OLIC PANEL (14) bilirubin, total 0.4 mg/dL 0.0-1. 2 normal Not Available [facility] ([facility]) [address] [facility] [place], [address], 12/24/2024 08:34:10 12/24/19 25 12/24/2024 COMP. METAB OLIC PANEL (14) alkaline phosphatase 45 IU/L 44-121 normal Not Available [facility] ([facility]) [address] [facility] [place], [address], 12/24/2024 08:34:10 12/24/19 25 12/24/2024 COMP. METAB OLIC PANEL (14) AST (SGOT) 20 IU/L 0-40 normal Not Available [facility] ([facility]) [address] [place], [address], 12/24/2024 08:34:10 12/24/19 25 12/24/2024 COMP. METAB OLIC PANEL (14) ALT (SGPT) 15 IU/L 0-32 normal Not Available [facility] ([facility]) [address] [place], [address], 12/24/2024 08:34:10 12/24/19 25 12/24/2024 LIPID PANEL cholesterol, total 192 mg/dL 100-19 9 normal Not Available [facility] ([facility]) [address] [place], [address], 12/24/2024 08:34:10 12/24/19 25 12/24/2024 LIPID PANEL triglyceride s 49 mg/dL 0-149 normal Not Available [facility] ([facility]) [address] [place], [address], 12/24/2024 08:34:10 12/24/19 25 12/24/2024 LIPID PANEL HDL cholesterol 72 mg/dL >39 normal Not Available [facility] ([facility]) [address] [place], [address], 12/24/2024 08:34:10 12/24/19 25 12/24/2024 LIPID PANEL VLDL cholesterol justyn 9 mg/dL 5-40 Not Available [facility] ([facility]) [address] [place], [address], 12/24/2024 08:34:10 12/24/19 25 12/24/2024 LIPID PANEL LDL chol calc ([facility]) 111 mg/dL 0-99 above high normal Not Available [facility] ([facility]) [address] [place], [address], 12/24/2024 08:34:10 12/24/19 25 12/24/2024 LIPID PANEL LDL calc comment: RHINOLOGIST Not Available [facility] ([facility]) [address] [facility] [place], [address], 12/24/2024 08:34:10 12/24/19 25 12/24/2024 IRON AND TIBC iron bind.cap.(TI BC) 364 ug/dL 250-45 0 normal Not Available [facility] ([facility]) [address] [facility] [place], [address], 12/24/2024 08:34:11 12/24/19 25 12/24/2024 IRON AND TIBC UIBC 244 ug/dL 131-42 5 normal Not Available [facility] ([facility]) [address] [place], [address], 12/24/2024 08:34:11 12/24/19 25 12/24/2024 IRON AND TIBC iron 120 ug/dL 27-159 normal Not Available [facility] ([facility]) [address] [facility] [place], [address], 12/24/2024 08:34:11 12/24/19 25 12/24/2024 IRON AND TIBC iron saturation 33 % 15-55 normal Not Available [facility] ([facility]) [address] [place], [address], 12/24/2024 08:34:11 12/24/19 25 12/24/2024 VITAM IN B12 AND FOLAT E vitamin B12 987 pg/mL 232-12 45 normal Not Available [facility] ([facility]) [address] [place], [address], 12/24/2024 08:34:12 12/24/19 25 12/24/2024 VITAM IN B12 AND FOLAT E folate (folic acid), serum >20.0 NG/mL >3.0 A serum folat e paddy ntrat ion of less than 3.1 ng/mL is consi dered to repre sent clini justyn defic iency . Not Available [facility] ([facility]) [address] [facility], [place], [address], 12/24/2024 08:34:12 12/24/19 25 12/24/2024 HEMOG LOBIN A1C hemoglobin A1C 5.3 % 4.8-5. 6 normal Predi abete s: 5.7 - 6.4 Diabe jose: >6.4 Glyce melinda contr ol for adult s with diabe jose: <7.0 Not Available [facility] ([facility]) [address] [facility], [place], [address], 12/24/2024 08:34:12 12/24/19 25 12/24/2024 TSH TSH 0.909 uIU/m L 0.450- 4.500 normal Not Available [facility] ([facility]) [address] [facility], [place], [address], 12/24/2024 08:34:13 12/24/19 25 12/24/2024 VITAM IN D, 25-HY DROXY vitamin D, 25-hydroxy 67.2 NG/mL 30.0-1 00.0 Vitam in D defic iency has been defin ed by the Insti tute of Medic ine and an Endoc rine Socie ty pract ice guide line as a level of serum 25-OH vitam in D less than 20 ng/mL (1,2) . The Endoc rine Socie ty went on to furth er defin e vitam in D insuf ficie ncy as a level betwe en 21 and 29 ng/mL (2). 1. IOM (Inst itute of Medic ine). 2009. Dieta ry refer ence inttelma es for calci um and D. Rohith potter [place]: The Natio nal [facility] Press . 2. Peyton schuster [place], Hilario ey [place], Biselena off-F errar i WU, et al. Evalu ation , treat ment, and preve ntion of vitam in D defic iency : an Endoc rine Socie ty clini justyn pract ice guide line. JCEM. 2010; 96(7) :1911 -30. Not Available [facility] ([facility]) [address] [place], [address], 12/24/2024 08:34:14 12/24/19 25 12/24/2024 RAYSHAWN TIN ferritin 73 NG/mL 15-150 normal Not Available [facility] ([facility]) [address] [facility], [place], [address], 12/24/2024 08:34:14 12/24/19 25 12/23/2024 ONE SPECI MEN IDENT IFIER one specimen identifier Commen t The speci men recei karon inclu ded only one patie nt ident ifier on the prima ry colle ction conta iner. Our labor atory accre ditin g agenc y state s All prima ry speci men conta iners must be label ed with 2 ident ifier s at the time of colle ction . Not Available [facility] ([facility]) [address] [facility], [place], [address], 12/24/2024 08:34:15 12/24/19 25 12/24/2024 COMP. METAB OLIC PANEL (14) glucose 88 mg/dL 70-99 normal Not Available [facility] ([facility]) [address] [place], [address], 12/24/2024 14:16:52 12/24/19 25 12/24/2024 COMP. METAB OLIC PANEL (14) BUN 9 mg/dL 6-20 normal Not Available [facility] ([facility]) [address] [place], [address], 12/24/2024 14:16:52 12/24/19 25 12/24/2024 COMP. METAB OLIC PANEL (14) creatinine 0.69 mg/dL 0.57-1 .00 normal Not Available [facility] ([facility]) [address] [facility] [place], [address], 12/24/2024 14:16:52 12/24/19 25 12/24/2024 COMP. METAB OLIC PANEL (14) eGFR 114 mL/mi n/1.7 3 >59 normal Not Available [facility] ([facility]) [address] [facility] [place], [address], 12/24/2024 14:16:52 12/24/19 25 12/24/2024 COMP. METAB OLIC PANEL (14) BUN/creatini ne ratio 13 9-23 normal Not Available [facility] ([facility]) [address] [facility] [place], [address], 12/24/2024 14:16:52 12/24/19 25 12/24/2024 COMP. METAB OLIC PANEL (14) sodium 140 mmol/ L 134-14 4 normal Not Available [facility] ([facility]) [address] [facility] [place], [address], 12/24/2024 14:16:52 12/24/19 25 12/24/2024 COMP. METAB OLIC PANEL (14) potassium 4.5 mmol/ L 3.5-5. 2 normal Not Available [facility] ([facility]) [address] [facility] [place], [address], 12/24/2024 14:16:52 12/24/19 25 12/24/2024 COMP. METAB OLIC PANEL (14) chloride 104 mmol/ L 96-106 normal Not Available [facility] ([facility]) [address] [facility] [place], [address], 12/24/2024 14:16:52 12/24/19 25 12/24/2024 COMP. METAB OLIC PANEL (14) carbon dioxide, total 19 mmol/ L 20-29 below low normal Not Available [facility] ([facility]) [address] [facility] [place], [address], 12/24/2024 14:16:52 12/24/19 25 12/24/2024 COMP. METAB OLIC PANEL (14) calcium 9.8 mg/dL 8.7-10 .2 normal Not Available [facility] ([facility]) [address] [facility] [place], [address], 12/24/2024 14:16:52 12/24/19 25 12/24/2024 COMP. METAB OLIC PANEL (14) protein, total 7.5 g/dL 6.0-8. 5 normal Not Available [facility] ([facility]) [address] [facility] [place], [address], 12/24/2024 14:16:52 12/24/19 25 12/24/2024 COMP. METAB OLIC PANEL (14) albumin 4.8 g/dL 3.9-4. 9 normal Not Available [facility] ([facility]) [address] [facility] [place], [address], 12/24/2024 14:16:52 12/24/19 25 12/24/2024 COMP. METAB OLIC PANEL (14) globulin, total 2.7 g/dL 1.5-4. 5 Not Available [facility] ([facility]) [address] [facility] [place], [address], 12/24/2024 14:16:52 12/24/19 25 12/24/2024 COMP. METAB OLIC PANEL (14) bilirubin, total 0.4 mg/dL 0.0-1. 2 normal Not Available [facility] ([facility]) [address] [facility] [place], [address], 12/24/2024 14:16:52 12/24/19 25 12/24/2024 COMP. METAB OLIC PANEL (14) alkaline phosphatase 45 IU/L 44-121 normal Not Available [facility] ([facility]) [address] [facility] [place], [address], 12/24/2024 14:16:52 12/24/19 25 12/24/2024 COMP. METAB OLIC PANEL (14) AST (SGOT) 20 IU/L 0-40 normal Not Available [facility] ([facility]) [address] [facility], [place], [address], 12/24/2024 14:16:52 12/24/19 25 12/24/2024 COMP. METAB OLIC PANEL (14) ALT (SGPT) 15 IU/L 0-32 normal Not Available [facility] ([facility]) [address] [facility], [place], [address], 12/24/2024 14:16:52 Result Notes None recorded. Problems Name Problem SNOMED Code Status Onset Date Resolution Date Notes Provider Name and Address Organization Details Recorded Time Chronic pain 82224529 Active Descripti on: Other chronic pain RAQUEL JAVIER , RHINOLOGIST [address], [place], [address], [place] [facility] 5 13:12:20 Hyperlip idemia 14925968 Active Descripti on: Hyperlipi demia, unspecifi ed hyperlipi demia type RAQUEL JAVIER , RHINOLOGIST [address], [place], [address], [place] [facility] 5 13:12:20 Rhinitis 49408513 Completed 12/02/2024 Descripti on: Rhinitis, unspecifi ed type RAQUEL JAVIER , RHINOLOGIST [address], [place], [address], [place] - [facility] 5 08:19:55 Arthriti s 7469082 Active Descripti on: Arthritis RAQUEL JAVIER RHINOLOGIST [address], [place], [address], [place] [facility] 5 13:12:20 Pure hypercho lesterol emia 572270516 Active Descripti on: Pure hyperchol esterolem ia RAQUEL JAVIER , RHINOLOGIST [address], [place], [address], [place] - [facility] 5 13:12:20 Primary infertil ity 514730741 Active 2024 RAQUEL JAVIER RHINOLOGIST [address], [place], [address], [facility] 5 08:20:36 Problem Notes None recorded. Procedures Surgical History Date Name Laterality Status Provider Name and Address Organization Details Recorded Time 5 Date of Last Pap Smear completed RAQUEL JAVIER [address], [place], [address], [facility] 12/02/2024 08:26:08 total replacement of hip completed RAQUEL JAVIER [address], [place], [address], [facility] 12/02/2024 08:25:28 Imaging Results None recorded. Procedure Notes None recorded. Medical Equipment None Reported. Allergies Allergen ID Allergen Name Allergen Category Reaction Reaction Severity Criticality Documentation Date Start Date Code Code System Note Provider Name and Address Organization Details Recorded Time 865659 nut - unspecifi ed food anaphylax is severe high 12/01/2024 50090 UNK RAQUEL JAVIER [address], [place], [address], [facility] 5 13:12:04 Medications Name Sig Start Date Stop Date Status Note LastModified by Organization Details LastModified Time metformin 500 mg tablet Take 1 tablet every day by oral route. active Not Available Not Available No t Available meloxicam 15 mg tablet 1 tablet Once a day , Orally active Encounter Date: 04/17/2023 Status: 'Discontin ued'; Not Available Not Available Not Available calcium 600 mg (as calcium carbonate 1,500 mg) tablet 1 tablet with meals Twice a day , Orally active Encounter Date: 04/17/2023 ; *Pick strength-f orm from [employer] for eRX* Status: 'Discontin ued'; Not Available Not Available Not Available Aspir-81 mg tablet,del ayed release 1 tablet Once a day , Orally active Encounter Date: 12/25/2023 ; *Reorder from [employer] for eRx and Interactio n Alerts* Status: 'Taking'; Not Available Not Available Not Available letrozole 2.5 mg tablet Take 3 tablets as needed by oral route. active takes 5 days out of the month Not Available Not Available Not Available multivitam in active Encounter Date: 12/25/2023 Medication Name: 'Multivita min'; ConceptTyp e: 'NDC'; Status: 'Taking'; Not Available Not Available Not Available cholecalci ferol (vitamin D3) 50 mcg (2,000 unit) tablet 1 tablet Once a day , Orally active Encounter Date: 04/17/2023 Status: 'Discontin ued'; Not Available Not Available Not Available Multi For Her 18 mg iron-600 mcg-80 mcg tablet Orally active Encounter Date: 04/17/2023 Status: 'Discontin ued'; Not Available Not Available Not Available Fish Oil 60 mg-90 mg-500 mg capsule 1 capsule Twice a day , Orally active Encounter Date: 08/08/2019 Status: 'Discontin ued'; Not Available Not Available Not Available Vitals Date Recorded Body height Body mass index (BMI) Body weight Heart rate Body temperature Oxygen saturation Oxygen saturation in Arterial blood by Pulse oximetry Respiratory rate Systolic And Diastolic Provider Name and Address Organization Details Last Updated DateTime 5 170.815 cm 25.7 kg/m2 22031.7 4 g 70 /min 98 [degF] 98 % 98 % 17 /min 116/70 mm[Hg] RAQUEL JAVIER NP [address], [place], [address], [place] - [facility] 5 08:14:23 Date Recorded Body height Body mass index (BMI) Body weight Heart rate Body temperature Oxygen saturation Oxygen saturation in Arterial blood by Pulse oximetry Heart rate Respiratory rate Systolic And Diastolic Provider Name and Address Organization Details Last Updated DateTime 5 170.81 cm 20.2 kg/m2 76388.0 1 g 89 /min 98.4 [degF] 98 % 98 % 89 /min 16 /min 110/68 mm[Hg] DICK TYLER NP [address], [place], [address], [place] [facility] 5 10:37:09 Social History Question Answer Notes LastModified by Organizat ion Details LastModified Time Tobacco Smoking Status Never Smoker SocialHistor yQuestion: 'Tobacco Use/Smoking' ; SocialHistor yResponse: 'Are you a: nonuser'; SocialHistor yQuestion: 'Tobacco Use:'; SocialHistor yResponse: '(Tobacco use other than smoking:):Ar e you an other tobacco user? No ;(Tobacco Use/Smoking) :Smoking Status: nonsmoker ;'; Not Available [facility] 09/11/2024 23:40:16 Do You Have An Advance Directive? Yes Information not available 12/02/2024 What Is Your Level Of Caffeine Consumption? Moderate Information not available 12/02/2024 What Type Of Diet Are You Following? REGULAR Information not available 12/02/2024 What Is The Highest Grade Or Level Of School You Have Completed Or The Highest Degree You Have Received? [id number] Information not available 12/02/2024 How Many Times Per Week Do You Exercise? 5-7 Times Per Week Information not available 12/02/2024 SOCIAL DETERMINANTS: During The Past Year, What Was The Biggest Concern For Your Overall Well-being? None Of These Worries Apply Information not available 12/02/2024 Cigar Smoking No Informatio n not available 12/02/2024 Does Anyone Insult Or Talk Down To You? Never Information not available 12/02/2024 Does Anyone Physically Hurt You At Home? Never Information not available 12/02/2024 Does Anyone Scream Or Curse At You? Never Information not available 12/02/2024 Does Anyone Threaten/bully You With Harm? Never Information not available 12/02/2024 Lives With Spouse And Child Information not available 12/02/2024 Sleep Habits None Information not available 12/02/2024 SOCIAL DETERMINANTS -- I Have A Close Friend, Family Member Or Support System I Can Talk To About Important Issues. Strongly Agree Information not available 12/02/2024 Have You Ever Served In The ? No Information not available 12/02/2024 Do You Have A Medical Power Of Vulcanizer? Yes Information not available 12/02/2024 What Was The Date Of Your Most Recent Tobacco Screening? 12/02/2024 Information not available 12/02/2024 What Is Your Relationship Status? Information not available 12/02/2024 Are You Passively Exposed To Smoke? No Information not available 12/02/2024 Sex: Female Functional Status Question Answer Note LastModified by Organizat ion Details LastModified Time Do you use any illicit or recreational drugs? No Information not available 12/02/2024 Do you or have you ever used any other forms of tobacco or nicotine? No SocialHist oryQuestio n: 'Tobacco use other than smoking'; SocialHist oryRespons e: 'Are you an other tobacco user? No'; [email or web address] Information not available 05/11/2024 What is your level of alcohol consumption? Occasional Information not available 12/02/2024 Are you currently employed? 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 Moderate Information not available 12/02/2024 Mental Status Question Answer Note LastModified by Organization D etails LastModified Time Do you feel stressed (tense, restless, nervous, or anxious, or unable to sleep at night)? [id number] Information not available 12/02/2024 Family History Relationship Description Onset Age of this Age Resolved Age Notes LastModified by Organization Details LastModified Time Father No current problems or disability Not available 08:20:58 Mother No current problems or disability Not available 08:20:58 Notes:*Relative: Unspecified Relation*Problem: 1 daughters(s) - healthy Medical History Condition Response Coronary Artery Disease N Gout N Macular Degeneration N Atrial Fibrillation N Heart Valve Disorder N Kidney Stones N Hyperthyroidism N MRSA N COPD N Depression N Migraine Headaches N Retinopathy Diabetic N Hodgkin's Lymphoma N Positive TB Skin Test N Obstructive Sleep Apnea N Sinus Infections N Infertility N Carpal Tunnel N Lupus (SLE) N DVT (Blood Clot in legs) N Rheumatoid Arthritis N Fibromyalgia N Incontinence, stress N Anxiety N Venous Insufficiency (Swelling of Legs & Ankles) N Anemia, other N Vit D Deficiency N Peptic Ulcer Disease N Menstrual Cycle- Heavy N Irritable bowel N Blood in urine N GERD (reflux) N Compression fracture of spine (vertebral ) N Carotid Artery Disease N Tuberculosis N AIDS/HIV N Hip fracture N Anemia, iron deficient N Asthma N Blood clotting disorder N Diabetes Type II N Peripheral Vascular Disease N Myocardial Infarction with Stent (Heart Attack) N Abnormal Pap N Diabetes Type I N Hepatitis N Cirrhosis N Seizure Disorder N Stroke (CVA) N Colon Cancer N Leukemia N Breast Cancer N Erectile Dysfunction (ED) N Myocardial Infarction w/o Stent (Heart A ttack) N Raynauds Disease N Lung Cancer N Glaucoma N Hypothyroidism N Gilliam N Bipolar N Hypertension (High Blood Pressure) N Irregular Menses N Other Rhythm Problem N Bone loss (Osteopenia or osteoporosis) N Varicose Veins N Hearing Loss N Cervical Cancer N Hypoglycemia N Hyperlipidemia (High Cholesterol) N Chronic Kidney Disease N Vit B12 Deficiency N Incontinence, urge N Menstrual Cycle- Painful N Panic Disorder N Schizophrenia N Osteoarthritis N BPH (enlarged prostate) N UTI Chronic N Lyme Disease N Prostate Cancer N Abdominal Aortic Aneurysm N Shingles (HZ) N Non-Hodgkin's Lymphoma N Ovarian Cancer N Lumbar Spine Disease N Abnormal Mammogram N Cervical Spine Disease N Congestive Heart Failure (CHF) N Eczema N Rectal Bleeding N Dementia N Diverticulitis N Bladder Cancer N Psoriasis N Gall Stones N Thrombocytopenia (low platelets) N Allergic Rhinitis (seasonal allergies) N Gynecological History Statement/Question Response Abnormal Pap Y Date of LMP 11/06/2024 Sexually Active? Y Menses Monthly Y STIs/STDs N Date of Last Pap Smear 08/12/2024 Current Control Method None LMP Definite Desired Control Method None Obstetrics History GPAL:G 1 P 1 0 0 1 Type Value Multiple Births 0 Full Term 1 Induced 0 Spontaneous 0 Premature 0 Living 1 Ectopics 0 Total 1 Immunizations Vaccine Type Date Status Note Provider Nam e and Address Organization Details Recorded Time Tdap 7 completed Not Available [facility] 04/12/2024 14:59:03 Influenza, split virus, quadrivalent, PF 9 completed Not Available [facility] 04/12/2024 14:59:03 Influenza, split virus, quadrivalent, PF 0 completed Not Available [facility] 04/12/2024 14:59:03 Influenza, split virus, quadrivalent, PF 3 completed Not Available [facility] 04/12/2024 14:59:03 Influenza, split virus, quadrivalent, PF 8 completed RAQUEL JAVIER NP [address], [place], [place], [address] [place] [address], [facility] 12/01/2024 13:13:00 Influenza, split virus, quadrivalent, PF 7 completed Not Available [facility] 04/12/2024 14:59:03 Tdap 5 completed DICK TYLER RHINOLOGIST [address], [place], [place], [address] [place] [address], [facility] 12/23/2024 10:52:34 Influenza, split virus, quadrivalent, preservative 2 completed RAQUEL JAVIER NP [address], [place], [address] [place] [address], [facility] 12/01/2024 13:13:00 COVID-19, mRNA, LNP-S, PF, 30 mcg/0.3 mL dose 1 completed RAQUEL JAVIER NP [address], [place], [address] [place] [address], [facility] 12/01/2024 13:13:00 COVID-19, mRNA, LNP-S, PF, 30 mcg/0.3 mL dose 1 completed RAQUEL JAVIER NP [address], [place], [address] [place] [address], [facility] 12/01/2024 13:13:00 Influenza, split virus, trivalent, PF 8 completed RAQUEL JAVIER NP [address], [place], [address] [place] [address], [facility] 12/01/2024 13:13:00 Influenza, split virus, quadrivalent, PF 1 completed RAQUEL JAVIER NP [address], [place], [address] [place] [address], [facility] 12/01/2024 13:13:00 Past Encounters Encounter ID Performer Location Encounter Start Date Encounter Closed Date Diagnosis/Indication Diagnosis SNOMED-CT Code Diagnosis ICD10 Code Diagnosis Note [id number] RAQUEL JAVIER NP [facility] - [place] [address] [place] [address] 12/02/2024 08:05:55 12/02/2024 08:54:42 Adult health examination 834819880 Z00.00 Discussed importance of healthy diet consisting of proper intake of lean meats, vegetables , and fiber. Advised proper hydration of 8-10 glasses of water per day. Get adequate and restful sleep, approx 6-8 hrs/night. Encouraged to get routine exercise, approx 150 min/wk, including activities such as walking, fitness classes, yoga, or strength training. Advised the importance of staying UTD on age appropriat e screenings and immunizati ons. RTC in 1 yr for AWV, sooner PRN. If labs were drawn today, pt will be notified of results. Body mass index 25-29 - overweight [id number] Z68.25 Discussed importance of maintainin g healthy body wt. Should have diet rich in lean meats, non-starch y vegetables , and fiber. Routine exercise/a ctivity can help to decrease wt and improve overall health. Discussed the importance of managing stress and getting an adequate amount of sleep. [id number] DICK TYLER NP [facility] [address] [place] [address] 12/23/2024 10:30:13 12/23/2024 11:06:31 Laboratory test [id number] Z01.89 Patient presents today for lab test for her annual physical. Ordered by provider. Procedure explained to the patient and patient verbalized understand ing of the procedure and labs to be drawn today. Venipunctu re preformed using aseptic techniques of the right antecubita l fossa. Venipunctu re successful on the second attempt without complicati ons. Dressing applied to the sites and pressure held. No signs or symptoms of venipunctu re complicati ons observed. Lab results will be sent directly to [facility]. Patient left ambulatory with no complicati on of pain or discomfort voiced. Active or passive immunization [id number] Z23 Patient waited for 15 minutes post-admin istration, no adverse reaction is noted. Patient voiced no concerns upon departure from the clinic. Health Concerns Section Related Observation LastModified by Organization Detai ls LastModified Time None Recorded Concern Status LastModified by Organization Details LastModified Time None Recorded Advance Directives Directive Y: Payers Insurance Date Sequence Insurance Name Policy Number Policy Pierre Covered Member ID Pierre Member ID Guarantor Name 12/02/2024 1 [employer] - [employer] - ALL[employer] PLANS UNKNOWN Lorena L Nims [id number] Lorena L Nims 12/02/2024 1 [employer] - [employer] PLANS UNKNOWN Lorena L Nims [id number] Lorena L Nims 12/23/2024 1 [employer] - [employer] PLANS UNKNOWN Lorena L Nims [id number] Lorena L Nims 12/02/2024 ERROR UNKNOWN UPDATE TO CLIENT PACKAGE OR CASE POLICY - (MOVED-BILLED ) UNKNOWN Lorena L Nims [id number] Lorena L Nims 12/02/2024 ERROR UNKNOWN UPDATE TO CLIENT PACKAGE OR CASE POLICY - (MOVED-BILLED ) Lorena L Nims [id number] Lorena L Nims 12/02/2024 1 [employer] - [employer] - ALL[employer] PLANS UNKNOWN Lorena L Nims [id number] Lorena L Nims 12/02/2024 1 [employer] - [employer] - ALL[employer] PLANS UNKNOWN Lorena L Nims [id number] Lorena L Nims 12/02/2024 1 [employer] - [employer] - ALL[employer] PLANS UNKNOWN Lorena L Nims [id number] Lorena L Nims OBGyn Episode No OBEpisode recorded.
--- OUTSIDE RECORDS SUMMARY | 2025-03-02 12:26 | XMS_ITS | Encounter Summary ---
Author Organization [facility] Address [address], [address] [place] [address] Care Team Providers Care Ui Designer Name Role Phone Ana Ruiz MD Primary Care Provider [phone] Encounter Details Date Type Department Care Team (Late st Contact Info) Description 03/11/2024 Orders Only [facility] Part of [address] [place], [place] [id number] Provider, MD Aidan Social History Tobacco Use [...] Description 08/24/2025 3:40 PM EST Office Visit [facility] Part of [address] [place], [place] [id number] Mary Harper DIAGNOSTIC TECHNICIAN - [address] [place] [address] yearly-pap with hpv, colpo with Dr Ashley 10/2024 documented as of this encounter Procedures Procedure Name Priority Date/Time Associated Diagnosis Comments HYSTEROSALPINGOGRAM Routine 09/25/2023 1 :03 PM EST CBC Routine 09/18/2023 1:00 PM EST ABO/RH Routine 09/18/2023 12:58 PM EST HIV1/2 P24AG/AB SCREEN Routine 12:56 PM EST TSH Routine 09/18/2023 12:55 PM EST RUBELLA AB, IGG Routine 09/18/2023 12:53 PM EST HEPATITIS C AB, RFLX TO QT B Y PCR Routine 09/18/2023 12:51 PM EST documented in this encounter Results * HYSTEROSALPINGOGRAM (09/25/2023 1:03 PM EST) Historical Provider [facility] Final Result * CBC (09/18/2023 1:00 PM EST) Blood BLOOD SPECIMEN / Unknown Historical Provider HEMATOLOGY ORDERABLES Fin al Result * ABO/Rh (09/18/2023 12:58 PM EST) Blood BLOOD SPECIMEN / Unknown Historical Provider BLOOD BANK TEST ORDERABLE S Final Result * HIV1/2 p24Ag/Ab Screen (09/18/2023 12:56 PM EST) Blood BLOOD SPECIMEN / Unknown Historical Provider IMMUNOLOGY ORDERABLES Fin al Result * TSH (09/18/2023 12:55 PM EST) Blood BLOOD SPECIMEN / Unknown [facility] Provider CHEMISTRY ORDERABLES Yaneth l Result * RUBELLA AB, IGG (09/18/2023 12:53 PM EST) [facility] Provider CHEMISTRY ORDERABLES Yaneth l Result * Hepatitis C Ab, Rflx to Qt by PCR (09/18/2023 12:51 PM EST) Blood BLOOD SPECIMEN / Unknown Result [facility] Provider CHEMISTRY ORDERABLES Yaneth l Result documented in this encounter Visit Diagnoses Not on filedocumented in this encounter Care Teams Ui Designer Relationship Specialty Start Date End Date Ana Ruiz MD [address] [place], [place] [id number] PCP - General Family Medicine 04/22/13 documented as of this encounter
--- OUTSIDE RECORDS SUMMARY | 2025-03-02 12:26 | XMS_ITS | Clinical Summary ---
Author Organization [facility] Address [address] [place] [address] Care Team Providers Care Combine Mechanic Name Role Phone Ana Ruiz MD Primary Care Provider [phone] Allergies Active Allergy Reactions Criticality Noted Date Comments Cashew Nut Oil Medium 07/12/2021 Tree nuts, scratchy throat Medications Jublia 10 % Solution topical solution APPLY EXTERNALLY TO THE AFFECTED AREA ONCE A DAY 01/25/20 21 Active Aspirin Buf,CaCarb-MgCarb -MgO, 81 MG tablet Take 81 mg by mouth daily. Active Vit-Fe Fumarate-FA (PrePLUS) 27-1 MG tablet Take by mouth daily. 03/22/20 21 Active docusate 100 MG capsule Take 1 capsule by mouth 2 times daily. Active calcium carbonate 1250 (500 Ca) MG Chew Tab Chew 1 tablet 2 times daily. Active ergocalciferol 1.25 MG (15170 UT) capsule Take 1 capsule by mouth once a week. Active cholecalciferol 50 MCG (2000 UT) capsule Take by mouth 2 times daily. Active celecoxib 200 MG capsule Take 1 capsule by mouth 2 times daily. 84 capsule 08/09/19 22 Active apixaban 2.5 MG tablet Take 1 tablet by mouth every 12 hours. This medication is for blood clot prevention 70 tablet 08/09/19 Active omeprazole [address] capsule Take 1 capsule by mouth daily. 30 capsule 08/09/19 22 Active Additional Information Patient not taking.Reported on 10/16/2024 ondansetron 4 MG tablet Take 1 tablet by mouth every 8 hours as needed for Nausea. 6 tablet 08/09/19 22 Active Additional Information Patient not taking.Reported on 10/16/2024 acetaminophen 325 MG tablet Take 2 tablets by mouth every 4 hours as needed for Mild Pain. 50 tablet 1 08/09/19 22 Active hydroCODone-aceta minophen 5-325 MG tabletIndications :Acute postoperative pain of left hip Take 1-2 tablets by mouth every 6 hours as needed for up to 7 days. Do not take over 4000mg acetaminophen daily. 20 tablet 08/09/19 22 Active traMADol 50 MG tabletIndications :Acute postoperative pain of left hip 1-2 tabs po q 6 hr PRN pain 20 tablet 08/18/19 Active Active Problems No known active problems Social History Tobacco Use Types Packs/Day Years Used Date Smoking Tobacco: Never Smokeless Tobacco: Never Tobacco Cessation:Counseling Given: Not Answered Alcohol Use Standard Drinks/Week Comments Yes 0 (1 standard drink = 0.6 oz pur e alcohol) occasional Comments No Sex and Gender Information Value Date Recorded Sex Assigned at Not on file Legal Sex Female 9:30 AM EDT Gender Identity Not on file Sexual Orientation Not on file Last Filed Vital Signs Vital Sign Reading Time Taken Comments Blood Pressure 98/56 08/09/2021 5:45 PM EST Pulse 76 08/09/2021 4:00 PM EST Temperature 36.6 C (97.8 F) 08/09/2022 3:27 PM EST Respiratory Rate 14 08/09/2021 4:00 PM EST Oxygen Saturation 100% 08/09/2021 4:00 PM EST Inhaled Oxygen Concentration - - Weight 80.3 kg (177 lb) 08/09/2022 3:27 PM EST Height 170.2 cm (5' 7 ) 08/09/2022 3:27 PM EST Body Mass Index 27.72 08/09/2022 3:27 PM EST Plan of Treatment Health Maintenance Due Date Last Done Comments HEPATITIS C VIRUS SCREENING 1986 HIV SCREENING DISCUSSION 2001 HEP B VACCINE (1 of 3 - 19+ 3-dose series) 2005 CERVICAL CANCER SCREENING DISCUSSION 11/08/2007 COVID-19 VACCINE ( season) 2024 05/17/2021, 04/21/2021 INFLUENZA VACCINE (#1) 2025 , 06/22/2022, 04/21/2021, Additional history exists TETANUS 12/23/2034 12/23/2024, 06/06, 06/12/2016 TDAP (ADULT) Completed 12/23/2024, 06/06, 06/12/2016 HPV VACCINE Aged Out No longer eligi ble based on patient's age to complete this topic PNEUMOCOCCAL VACCINE SERIES Aged Out No longer eligible based on patient's age to complete this topic Medical Devices Implanted Type Area Mail Truck Driver Device Identifier Shelf Expiration Date Model / Serial / Lot [place] Gription Acetabular Shell Sector Implanted:Qty: 1 on 08/09/2021 by Alfred Mercado MD at [facility] Left: Hip [employer] 04/05/2031 0 / / [id number] [place] Altrx Polyethylene Acetabular Lner Implanted:Qty: 1 on 08/09/2021 by Alfred Mercado MD at [facility] Left: Hip [employer] 05/05/2026 0 / / [id number] Femoral Stem 07/19 Taper Actis Duofix Hip Prosthesis Cementless Implanted:Qty: 1 on 08/09/2021 by Alfred Mercado MD at [facility] Left: Hip [employer] 04/05/2031 1010-06-09 0 / / [id number] Biolox Delta Ceramic Femoral Head Implanted:Qty: 1 on 08/09/2021 by Alfred Mercado MD at [facility] Left: Hip [employer] 03/05/2026 0 / / [id number] Procedures Procedure Name Priority Date/Time Associated Diagnosis Comments PROGESTERONE Routine 02/12/2025 7:36 AM EDT PROGESTERONE Routine 01/17/2025 11:40 AM EDT ORDERS (OUTSIDE) Routine 01/17/2025 11:3 2 AM EDT PROGESTERONE Routine 12/22/2024 7:47 AM EDT from Last 3 Months Results * PROGESTERONE (02/12/2025 7:36 AM EDT) Only the most recent of3 resultswithin the time period is included. PROGESTERONE 15.600 ng/mL [facility] [address] - [place] Comment: Reference Interval Follicular 0.14-2.03 Periovulatory 0.40-4.47 Mid luteal 5.22-22.7 Luteal 1.42-16.6 1st trimester (4-12 weeks) 6.57-40.3 2nd trimester (13-24 weeks) 9.66-62.3 3rd trimester (25-36 weeks) 24.5-334 Postmenopausal 0.15-1.04 02/12/2025 7:36 AM EDT 02/12/2025 7:37 AM EDT David R Dion DO ENDOCRINOLOGY Final Result [facility] [address] - [place] [address] [place] [address] * ORDERS (OUTSIDE) (01/17/2025 11:32 AM EDT) Anatomical Region Laterality Modality Other David R Dion DO PROC - OPERATIVE Final Result from Last [address] [facility] UMR Advance Directives For more information, please contact: [phone] (7:30 AM - 6PM [facility], Sunday-Sunday) Documents on File Type Date Recorded Patient Body Piercer Expl anation Advance Directives/Living Will 08/09/2021 8:00 AM Living Will / POA * Full Code (Latest Code Status on File) Date Activated Date Inactivated Comments 08/09/2021 11:50 AM Care Teams Combine Mechanic Relationship Specialty Start Date End Date Ana Ruiz MD PCP - General Family Medicine 04/14/21
--- OUTSIDE RECORDS SUMMARY | 2025-03-02 12:26 | XMS_ITS | Encounter Summary ---
Author Organization [facility] Address [address], [address] [place] [address] Care Team Providers Care Litigation Examiner Name Role Phone Ana Ruiz MD Primary Care Provider [phone] Reason for Visit * Reason Comments Medication Refill Encounter Details Date Type Department Care Team (Late st Contact Info) Description 08/08/2015 Refill [facility] [address] [place] [address] Ana Ruiz MD [address] [place] [address] Medication Refill Social History Tobacco [...] 3:40 PM EST Office Visit [facility] Part of [address] [place] [address] Mary Harper APRN - [facility] [address] [place] [address] [address] [place] [address] yearly-pap with hpv, colpo with Dr Ashley 10/2024 documented as of this encounter Visit Diagnoses Not on filedocumented in this encounter Care Teams Litigation Examiner Relationship Specialty Start Date End Date Ana Ruiz MD [address] [place] [id number] PCP - General Family Medicine 04/22/13 documented as of this encounter
[2025-03-04 12:08] LABS: Age Gdln ACOG Testing Note (.); IGP, Aptima HPV, rfx 16/18,45 Note (.)
== END 2025-03-02 12:21 | disposition home or self-care (01) ==
LOC: LAB 12:20
PROVIDERS: PCP Family Medicine; Visit Provider Obstetrics & Gynecology
DX: R87.619 Unspecified abnormal cytological findings in specimens from cervix uteri (principal)
CPT/HCPCS: 87624; 88175